=== PATIENT | female | born 1950 | race Caucasian/White ===

== ENCOUNTER 2017-02-04 22:08 | Inpatient (IN) | payer MEDICARE, OTHER ==
[2017-02-04 22:53] VITALS: BMI 28.3
--- NOTE | 2017-02-04 23:03 | HP ---
CIWA Score - CIWA Score Nausea/Vomitin-Mild Nausea/No Vomiting Muscle Tremors: 4-Moderate,w/Arms Extend Anxiety: 4-Mod. Anxious/Guarded Agitation: 4-Moderately Restless Paroxysmal Sweats: 1-Minimal Palms Moist Orientation: 1-Uncertain about Date Tacttile Disturbances: 0-None Auditory Disturbances: 0-None Visual Disturbances: 0-None Headache: 0-None Present CIWA-Ar Total Score: 15 Admission ROS BHS - HPI Chief Complaint: withdrawal sx Allergies/Adverse Reactions: Allergies Allergy/AdvReac Type Severity Reaction Status Date / Time No Known Allergies Allergy Verified 10/22/14 09:57 History of Present Illness: 66 years old female with long history of alcohol nicotine dependence has hypertension and bipolar ii is admitted to detox Exam Limitations: No Limitations - Ebola screening Have you traveled outside of the country in the last 21 days: No (N) Have you had contact with anyone from an Ebola affected area: No Have you been sick,other than usual withdrawal symptoms: No Do you have a fever: No - Review of Systems Constitutional: Chills, Changes in sleep, Weight Stable EENT: reports: No Symptoms Reported Respiratory: reports: No Symptoms reported Cardiac: reports: No Symptoms Reported GI: reports: Nausea, Poor Fluid Intake, Indigestion, Abdominal cramping : reports: No Symptoms Reported Musculoskeletal: reports: No Symptoms Reported Integumentary: reports: Bruising (both fore arms), Change in Color Neuro: reports: Seizure (1987 head trauma), Tremors Endocrine: reports: No Symptoms Reported Hematology: reports: No Symptoms Reported Psychiatric: reports: Judgement Intact, Anxious, Depressed Other Systems: Reviewed and Negative Patient History - Patient Medical History Hx Anemia: No Hx Asthma: No Hx Chronic Obstructive Pulmonary Disease (COPD): No Hx Cancer: No Hx Cardiac Disorders: No Hx Congestive Heart Failure: No Hx Hypertension: Yes Hx Hypercholesterolemia: No Hx Pacemaker: No HX Cerebrovascular Accident: No Hx Seizures: Yes Hx Diabetes: No Hx Gastrointestinal Disorders: No Hx Liver Disease: Yes (hep c ab positive ) Hx Genitourinary Disorders: No Hx Sexually Transmitted Disorders: No Hx Renal Disease (ESRD): No Hx Thyroid Disease: No Hx Human Immunodeficiency Virus (HIV): No Hx Hepatitis C: Yes Hx Depression: No Hx Suicide Attempt: No Hx Bipolar Disorder: Yes Hx Schizophrenia: No - Patient Surgical History Past Surgical History: Yes Hx Neurologic Surgery: No Hx Cataract Extraction: No Hx Cardiac Surgery: No Hx Lung Surgery: No Hx Breast Surgery: No Hx Breast Biopsy: No Hx Abdominal Surgery: No Hx Appendectomy: No Hx Cholecystectomy: No Hx Genitourinary Surgery: No Hx Section: Yes Hx Orthopedic Surgery: No Anesthesia Reaction: Yes (DIFFICULTY WAKING UP) - PPD History Previous Implant?: Yes Documented Results: Negative w/proof Implanted On Prior [facility] Admission?: Yes Date: 10/24/14 PPD to be Administered?: Yes - Smoking Cessation Smoking history: Current every day smoker Have you smoked in the past 12 months: Yes Aproximately how many cigarettes per day: 15 Cigars Per Day: 0 Hx Chewing Tobacco Use: No Initiated information on smoking cessation: Yes 'Breaking Loose' booklet given: 02/04/17 - Substance & Tx. History Hx Alcohol Use: Yes Hx Substance Use: Yes Substance Use Type: Alcohol, Heroin, Opiates Hx Substance Use Treatment: Yes (09/2014) - Substances Abused Alcohol Route: Oral Frequency: Daily Amount used: angelo schrader Age of first use: 18 Date of Last Use: 02/03/17 Family Disease History - Family Disease History Family Disease History: Heart Disease: Father (), Other: Father, Mother (no contact), Brother ( hiv), Sister () Admission Physical Exam S - Vital Signs Vital Signs: Vital Signs - 24 hr 02/04/17 22:50 Temperature 99.2 F Pulse Rate 94 H Respiratory 18 Rate Blood Pressure 111/71 - Physical General Appearance: Yes: Nourished, Appropriately Dressed, Mild Distress, Tremorous, Irritable, Sweating, Anxious HEENTM: Yes: Hearing grossly Normal, Normal ENT Inspection, Normocephalic, Normal Voice Respiratory: Yes: Chest Non-Tender, Lungs Clear, Normal Breath Sounds, No Respiratory Distress, No Accessory Muscle Use Neck: Yes: Supple, Trachea in good position Breast: Yes: Breasts Symetrical Abdominal: Yes: Non Tender, Soft, Increased Bowel Sounds Genitourinary: Yes: Within Normal Limits Back: Yes: Normal Inspection Musculoskeletal: Yes: full range of Motion, Gait Steady, Back pain, Muscle Pain Extremities: Yes: Normal Range of Motion, Non-Tender, Tremors, Other (both arms multiple bruises) Neurological: Yes: Alert, Motor Strength 5/5, Normal Response, Depressed Affect Integumentary: Yes: Warm Lymphatic: Yes: Within Normal Limits - Diagnostic (1) Alcohol dependence with uncomplicated withdrawal Current Visit: Yes Status: Acute (2) Methadone maintenance therapy patient Current Visit: Yes Status: Chronic Comment: 30 mg verification pending (3) Nicotine dependence Current Visit: Yes Status: Acute Qualifiers: Nicotine product type: cigarettes Substance use status: in withdrawal Qualified Code(s): F17.213 - Nicotine dependence, cigarettes, with withdrawal (4) Seizure Current Visit: Yes Status: Chronic (5) Hepatitis C antibody test positive Current Visit: Yes Status: Resolved Cleared for Admission [facility] - Detox or Rehab [facility] Level of Care: Medically Managed Detox Regimen/Protocol: Librium [facility] Breath Alcohol Content Breath Alcohol Content: 0 Urine Pregancy Test - Result Urine Test Results: Negative- NO Line Present Urine Drug Screen - Results Drug Screen Negative: No Urine Drug Screen Results: OPI-Opiates, MTD-Methadone, TCA-Tricyclic Antidepress
[2017-02-04] MEDS ORDERED: MAGNESIUM CITRATE 300 ML BOTTLE PO PRN (23:12)
[2017-02-04] MEDS ORDERED: NICOTINE POLACRILEX 4 MG GUM BC PRN (23:12)
[2017-02-04] MEDS ORDERED: LOPERAMIDE HCL 2 MG CAPSULE PO PRN (23:12)
[2017-02-04] MEDS ORDERED: ACETAMINOPHEN 325 MG TABLET (FP) PO PRN (23:12)
[2017-02-04] MEDS ORDERED: MAG HYDROX/AL HYDROX/SIMETH 30 ML UNIT-DOSE CUP PO PRN (23:12)
[2017-02-04] MEDS ORDERED: P-EPHED 60MG/TRIPROLIDI 2.5MG TABLET PO PRN (23:12)
[2017-02-04] MEDS ORDERED: MENTHOL/PHENOL 1 EACH UD MM PRN (23:12)
[2017-02-04] MEDS ORDERED: MAGNESIUM HYDROX 2400MG/30ML ORAL SUSPENSION 30 ML CUP PO PRN (23:12)
[2017-02-04] MEDS ORDERED: chlordiazePOXIDE HCL 25 MG CAPSULE PO PRN (23:12)
[2017-02-04] MEDS ORDERED: guaiFENesin/D-METHORPHAN HB 10 ML UNIT-DOSE CUPS PO PRN (23:12)
[2017-02-04] MEDS ORDERED: GABAPENTIN 300 MG CAPSULE (FP) PO SCH (23:30)
[2017-02-05] MEDS: SULFAMETHOXAZOLE/TRIMETHOPRIM 800MG/160MG D.S. TABLET PO SCH ×3 (00:29→22:21)
[2017-02-05] MEDS: diphenhydrAMINE HCL 50 MG CAPSULE PO PRN ×2 (00:30→23:11)
[2017-02-05] MEDS: chlordiazePOXIDE HCL 25 MG CAPSULE PO SCH ×5 (00:30→22:21)
[2017-02-05] MEDS: GABAPENTIN 300 MG CAPSULE (FP) PO SCH ×3 (05:30→22:22)
[2017-02-05 10:02] LABS: MEAN CELL VOLUME 91.1 fl (80-96); MEAN PLT VOLUME 11.6 fl (7.5-11.1); PLATELET COUNT 119 K/MM3 (134-434); RDW 14.3 % (11.6-15.6); WHITE BLOOD COUNT 6.5 K/mm3 (4.0-10.0)
[2017-02-05 10:18] LABS: ALK PHOS 80 U/L (45-117); ANION GAP 8 (8-16); BILIRUBIN,TOTAL 0.7 mg/dL (0.2-1.0); CALCIUM 8.2 mg/dL (8.5-10.1); CO2 26 mmol/L (21-32); CREATININE 0.5 mg/dL (0.55-1.02); GLUCOSE,RANDOM 91 mg/dL (74-106); SGOT/AST 50 U/L (15-37); SGPT/ALT 53 U/L (12-78); TOT PROT 6.5 g/dl (6.4-8.2)
[2017-02-05] MEDS: RANITIDINE HCL 150 MG TABLET (FP) PO SCH ×2 (10:46→22:21)
[2017-02-05] MEDS: LISINOPRIL 5 MG TABLET (FP) PO SCH (10:46)
[2017-02-05] MEDS: PRENATAL VITAMINS W/ FOLIC ACID TABLET (FP) PO SCH (10:46)
[2017-02-05] MEDS: NICOTINE 21 MG/24 HOURS TOPICAL PATCH TD SCH (10:47)
--- NOTE | 2017-02-05 13:25 | PN ---
S CIWA - CIWA Score Nausea/Vomitin Muscle Tremors: 2 Anxiety: 2 Agitation: 2 Paroxysmal Sweats: 1-Minimal Palms Moist Orientation: 0-Oriented Tacttile Disturbances: 1-Very Mild Itch/Numbness Auditory Disturbances: 1-Very Mild Visual Disturbances: 1-Very Mild Sensitivity Headache: 2-Mild CIWA-Ar Total Score: 15 S Progress Note (SOAP) Subjective: ALERT,DROWSY AND SLEEPY Objective: 02/05/17 13:22 Vital Signs Temperature 98.1 F 02/05/17 13:13 Pulse Rate 100 H 02/05/17 13:13 Respiratory Rate 20 02/05/17 13:13 Blood Pressure 148/87 02/05/17 13:13 O2 Sat by Pulse Oximetry (%) EKG NSR 80/MIN Laboratory Last Values WBC 6.5 K/mm3 (4.0-10.0) 02/05/17 08:00 RBC 3.67 M/mm3 (3.60-5.2) 02/05/17 08:00 Hgb 11.0 GM/dL (10.7-15.3) D 02/05/17 08:00 Hct 33.4 % (32.4-45.2) 02/05/17 08:00 MCV 91.1 fl (80-96) 02/05/17 08:00 MCHC 33.0 g/dl (32.0-36.0) 02/05/17 08:00 RDW 14.3 % (11.6-15.6) 02/05/17 08:00 Plt Count 119 K/MM3 (134-434) L D 02/05/17 08:00 MPV 11.6 fl (7.5-11.1) H D 02/05/17 08:00 Sodium 140 mmol/L (136-145) 02/05/17 08:00 Potassium 3.8 mmol/L (3.5-5.1) 02/05/17 08:00 Chloride 106 mmol/L (98-107) 02/05/17 08:00 Carbon Dioxide 26 mmol/L (21-32) 02/05/17 08:00 Anion Gap 8 (8-16) 02/05/17 08:00 BUN 15 mg/dL (7-18) D 02/05/17 08:00 Creatinine 0.5 mg/dL (0.55-1.02) L 02/05/17 08:00 Creat Clearance w eGFR > 60 (>60) 02/05/17 08:00 Random Glucose 91 mg/dL (74-106) 02/05/17 08:00 Calcium 8.2 mg/dL (8.5-10.1) L 02/05/17 08:00 Total Bilirubin 0.7 mg/dL (0.2-1.0) D 02/05/17 08:00 AST 50 U/L (15-37) H D 02/05/17 08:00 ALT 53 U/L (12-78) D 02/05/17 08:00 Alkaline Phosphatase 80 U/L (45-117) D 02/05/17 08:00 Total Protein 6.5 g/dl (6.4-8.2) 02/05/17 08:00 Albumin 3.0 g/dl (3.4-5.0) L D 02/05/17 08:00 LABS PENDING Assessment: 02/05/17 13:24 WITHDRAWAL SYMPTOM Plan: CONTINUE DETOX,WILL HOLD METHADONE TODAY
--- NOTE | 2017-02-05 15:45 | EKG ---
Test Reason : Blood Pressure : / mmHG Vent. Rate : 080 BPM Atrial Rate : 080 BPM P-R Int : 172 ms QRS Dur : 094 ms QT Int : 410 ms P-R-T Axes : 025 055 051 degrees QTc Int : 472 ms NORMAL SINUS RHYTHM POOR R WAVE PROGRESSION ABNORMAL ECG WHEN COMPARED WITH ECG OF 22-OCT-2014 21:58, [place] INTERVAL HAS DECREASED QUESTIONABLE CHANGE IN INITIAL FORCES OF SEPTAL LEADS CLINICAL CORRELATION IS RECOMMENDED Confirmed by JERARDO HODGES MD ([id number]) on 02/05/2017 3:45:00 PM Referred By: Confirmed By:JERARDO HODGES MD
--- NOTE | 2017-02-05 19:05 | CONSULT ---
[facility] Psychiatric Consult - Data Date of interview: 02/05/17 Admission source: [facility] Identifying data: Readmission to [facility] for this 66 y/o female seeking detox treatment for opioid dependence.Patient is single,a mother of one, homeless (intermediate),unemployed and supported on Social Security benefits. Substance Abuse History: - Smoking Cessation. Smoking history: Current every day smoker. Have you smoked in the past 12 months: Yes. Aproximately how many cigarettes per day: 15. Cigars Per Day: 0. Hx Chewing Tobacco Use: No. Initiated information on smoking cessation: Yes. 'Breaking Loose' booklet given : 02/04/17. - Substance & Tx. History. Hx Alcohol Use: Yes. Hx Substance Use : Yes. Substance Use Type: Alcohol, Heroin, Opiates. Hx Substance Use Treatment: Yes (09/2014). - Substances Abused. Alcohol. Route: Oral. Frequency: Daily. Amount used: quart volka. Age of first use: 18. Date of Last Use: 02/03/17. Confirmed by patient. Medical History: Hypertension and hepatitis C. Psychiatric History: Prescribed zoloft 100 mg/day + seroquel 300 mg/hs.Patient reports that she took these medications two days ago.Ms Ricks denies being in psychiatric outpatient treatment.She indicates that they were prescribed to her during her stay on the detox unit at [facility] a week ago.Diagnosed with Bipolar Disorder.Patient admits to a history of multiple psychiatric hospitalizations ([facility]).She presents with a history of suicide attempts (cutting). Physical/Sexual Abuse/Trauma History: No reported history of abuse. Additional Comment: Urine Drug Screen Results: OPI-Opiates, MTD-Methadone, TCA- Tricyclic Antidepressant.Noted. Mental Status Exam - Mental Status Exam Alert and Oriented to: Time, Place, Person Cognitive Function: Grossly Intact Patient Appearance: Unkempt, Disheveled Mood: Nervous, Withdrawn, Anxious Affect: Mood Congruent Patient Behavior: Fatigued, Cooperative (medication-seeking) Speech Pattern: Clear Voice Loudness: Normal Thought Process: Goal Oriented Thought Disorder: Not Present Hallucinations: Denies Suicidal Ideation: Denies Homicidal Ideation: Denies Insight/Judgement: Poor Sleep: Poorly, Difficulty falling asleep Appetite: Good Muscle strength/Tone: Normal Gait/Station: Normal Psychiatric Findings - Problem List ([place] 1, 2,3) (1) Alcohol dependence with uncomplicated withdrawal Current Visit: Yes Status: Acute (2) Opioid dependence on agonist therapy Current Visit: Yes Status: Acute (3) Nicotine dependence Current Visit: Yes Status: Acute Qualifiers: Nicotine product type: cigarettes Substance use status: in withdrawal Qualified Code(s): F17.213 - Nicotine dependence, cigarettes, with withdrawal (4) Substance induced mood disorder Current Visit: Yes Status: Acute (5) Seizure Current Visit: Yes Status: Chronic (6) Hepatitis C antibody test positive Current Visit: Yes Status: Resolved (7) Insomnia Current Visit: Yes Status: Acute - Initial Treatment Plan Initial Treatment Plan: Psychoeducation.Detoxification.Medications : zoloft 50 mg po daily + seroquel 100 mg po hs (subject to titration if no oversedation) .Side effects/benefits are discussed with patient.She is in agreement with this careplan.Pharmacy claims reviewed : noted scripts issued on 02/02/17 for seroquel XR 300 mg/hs + zoloft 200 mg/day remeron 15 mg/hs at [facility] and remeron 15 mg/hs @ [place] [address] on 12/02/16.Discrepancy presented to the patient.Ms Ricks insists on taking ONLY seroquel and zoloft for this hospital course.Observation.NO scripts needed at discharge.
[2017-02-05] MEDS: QUEtiapine FUMARATE 100 MG TABLET (FP) PO SCH (22:21)
[2017-02-05] MEDS: THIAMINE HCL 100 MG TABLET (FP) PO SCH (22:21)
[2017-02-06] MEDS: chlordiazePOXIDE HCL 25 MG CAPSULE PO SCH ×3 (06:29→16:57)
[2017-02-06] MEDS: GABAPENTIN 300 MG CAPSULE (FP) PO SCH ×3 (06:29→22:03)
[2017-02-06] MEDS: RANITIDINE HCL 150 MG TABLET (FP) PO SCH ×2 (09:51→22:03)
[2017-02-06] MEDS: LISINOPRIL 5 MG TABLET (FP) PO SCH (09:51)
[2017-02-06] MEDS: SULFAMETHOXAZOLE/TRIMETHOPRIM 800MG/160MG D.S. TABLET PO SCH ×2 (09:51→22:03)
[2017-02-06] MEDS: PRENATAL VITAMINS W/ FOLIC ACID TABLET (FP) PO SCH (09:51)
[2017-02-06] MEDS: SERTRALINE HCL 50 MG TABLET (FP) PO SCH (09:52)
[2017-02-06] MEDS: NICOTINE 21 MG/24 HOURS TOPICAL PATCH TD SCH (09:52)
[2017-02-06] MEDS ORDERED: SERTRALINE HCL 50 MG TABLET (FP) PO SCH (10:00)
[2017-02-06] MEDS ORDERED: METHADONE HCL 10 MG TABLET PO ONE (10:25)
--- NOTE | 2017-02-06 10:37 | PN ---
S CIWA - CIWA Score Nausea/Vomitin Muscle Tremors: 3 Anxiety: 3 Agitation: 3 Paroxysmal Sweats: 1-Minimal Palms Moist Orientation: 0-Oriented Tacttile Disturbances: 1-Very Mild Itch/Numbness Auditory Disturbances: 1-Very Mild Visual Disturbances: 1-Very Mild Sensitivity Headache: 2-Mild CIWA-Ar Total Score: 18 S Progress Note (SOAP) Subjective: ALERT,IRRITABLE,ANXIOUS,INTERRUPTED SLEEP,TREMOR,INTERRUPTED SLEEP Objective: 02/06/17 10:35 Vital Signs Temperature 97.2 F L 02/06/17 06:00 Pulse Rate 79 02/06/17 06:00 Respiratory Rate 18 02/06/17 06:30 Blood Pressure 153/95 02/06/17 06:00 O2 Sat by Pulse Oximetry (%) Laboratory Last Values WBC 6.5 K/mm3 (4.0-10.0) 02/05/17 08:00 RBC 3.67 M/mm3 (3.60-5.2) 02/05/17 08:00 Hgb 11.0 GM/dL (10.7-15.3) D 02/05/17 08:00 Hct 33.4 % (32.4-45.2) 02/05/17 08:00 MCV 91.1 fl (80-96) 02/05/17 08:00 MCHC 33.0 g/dl (32.0-36.0) 02/05/17 08:00 RDW 14.3 % (11.6-15.6) 02/05/17 08:00 Plt Count 119 K/MM3 (134-434) L D 02/05/17 08:00 MPV 11.6 fl (7.5-11.1) H D 02/05/17 08:00 Sodium 140 mmol/L (136-145) 02/05/17 08:00 Potassium 3.8 mmol/L (3.5-5.1) 02/05/17 08:00 Chloride 106 mmol/L (98-107) 02/05/17 08:00 Carbon Dioxide 26 mmol/L (21-32) 02/05/17 08:00 Anion Gap 8 (8-16) 02/05/17 08:00 BUN 15 mg/dL (7-18) D 02/05/17 08:00 Creatinine 0.5 mg/dL (0.55-1.02) L 02/05/17 08:00 Creat Clearance w eGFR > 60 (>60) 02/05/17 08:00 Random Glucose 91 mg/dL (74-106) 02/05/17 08:00 Calcium 8.2 mg/dL (8.5-10.1) L 02/05/17 08:00 Total Bilirubin 0.7 mg/dL (0.2-1.0) D 02/05/17 08:00 AST 50 U/L (15-37) H D 02/05/17 08:00 ALT 53 U/L (12-78) D 02/05/17 08:00 Alkaline Phosphatase 80 U/L (45-117) D 02/05/17 08:00 Total Protein 6.5 g/dl (6.4-8.2) 02/05/17 08:00 Albumin 3.0 g/dl (3.4-5.0) L D 02/05/17 08:00 RPR Titer Nonreactive (NONREACTIVE) 02/05/17 08:00 Assessment: 02/06/17 10:36 WITHDRAWAL SYMPTOM Plan: CONTINUE DETOX
[2017-02-06] MEDS ORDERED: CYCLOBENZAPRINE HCL 10 MG TABLET (FP) PO PRN (13:57)
[2017-02-06] MEDS ORDERED: cloNIDine HCL 0.1 MG TABLET PO PRN (20:58)
[2017-02-06] MEDS: THIAMINE HCL 100 MG TABLET (FP) PO SCH (22:02)
[2017-02-06] MEDS: chlordiazePOXIDE 5 MG CAPSULE PO SCH (22:02)
[2017-02-06] MEDS: QUEtiapine FUMARATE 100 MG TABLET (FP) PO SCH (22:03)
--- NOTE | 2017-02-07 01:17 | PN ---
S Progress Note (SOAP) Subjective: Received report from FILEMON Martinez that the pt. is c/o of chest pain. Objective: 02/07/17 01:16 Last Vital Signs Temp Pulse Resp BP Pulse Ox 97.9 F 86 20 146/93 97 EKG: NSR Assessment: 02/07/17 01:17 Pt. seen lying comfortably. She c/o of burning sensation to her epigastric region that worsens when she lays down in bed and coughing. Plan: Pt. educated to avoid fatty and spicy meals; avoid eating and drinking 3 hours prior to going to bed; elevate the HOB. Pt. verbalize understanding. Zantac 300mg PO HS ordered.
[2017-02-07] MEDS: chlordiazePOXIDE 5 MG CAPSULE PO SCH ×2 (05:37→10:33)
[2017-02-07] MEDS: GABAPENTIN 300 MG CAPSULE (FP) PO SCH ×2 (05:38→14:34)
[2017-02-07] MEDS ORDERED: METHADONE HCL 10 MG TABLET PO SCH (06:00)
--- NOTE | 2017-02-07 08:30 | PN ---
S Progress Note Note: PATIENT METHADONE VERIFICATION 40 MG/DAY,WILL RESUME 40 MGS/DAY FROM 02/07/17
[2017-02-07] MEDS: SERTRALINE HCL 50 MG TABLET (FP) PO SCH (10:32)
[2017-02-07] MEDS: PRENATAL VITAMINS W/ FOLIC ACID TABLET (FP) PO SCH (10:33)
[2017-02-07] MEDS: NICOTINE 21 MG/24 HOURS TOPICAL PATCH TD SCH (10:33)
[2017-02-07] MEDS: SULFAMETHOXAZOLE/TRIMETHOPRIM 800MG/160MG D.S. TABLET PO SCH (10:33)
[2017-02-07] MEDS: LISINOPRIL 5 MG TABLET (FP) PO SCH (10:33)
--- NOTE | 2017-02-07 10:55 | PN ---
[facility] Progress Note Note: pt was irrate and became threatening with another pt on the unit. Pt was advised that this behavior is unacceptable. security and counselor spoke to pt and pt agreed that this is her final warning. another outburst, threatening towards another pt or staff she will be d/c. pt was reminded that her reason for being here.
--- NOTE | 2017-02-07 14:12 | EKG ---
Test Reason : Blood Pressure : / mmHG Vent. Rate : 085 BPM Atrial Rate : 085 BPM P-R Int : 176 ms QRS Dur : 088 ms QT Int : 380 ms P-R-T Axes : 054 036 049 degrees QTc Int : 452 ms NORMAL SINUS RHYTHM NORMAL ECG WHEN COMPARED WITH ECG OF 04-FEB-2017 23:40, NO SIGNIFICANT CHANGE WAS FOUND Confirmed by OLIVER ARAMBULA MD ([id number]) on 02/07/2017 2:11:43 PM Referred By: Confirmed By:OLIVER ARAMBULA MD
[2017-02-07 14:13] VITALS: BP 137/91; PULSE 78; TEMP 98.1
[2017-02-07] MEDS ORDERED: HALOPERIDOL 2 MG TABLET PO STA (15:20)
[2017-02-07] MEDS ORDERED: diphenhydrAMINE HCL 25 MG CAPSULE (FP) PO STA (15:20)
--- NOTE | 2017-02-07 15:20 | PN ---
Psychiatric Progress Note Vital Signs: Vital Signs Period Temp Pulse Resp BP Sys/Turner Pulse Ox Last 24 Hr 97.3 F-98.2 F 78-93 16-20 124-165/72-91 Date of Session: 02/07/17 Chief Complaint:: As per nursing report patient expressing suicidal ideation, HPI: Patient evaluated at bedside , patient is crying, reports she does not want to go home, reports " my life is miserable.and I am ready to kill myself", patient is not violent or agressive, patient carries MDD, and at this moment severely exacerbated in her condition. Patient has to be send to [facility] for safety and following hospitalization. [id number] po stat. Benadryl 25mg po stat Current Medications: Active Medications Generic Name Dose Route Start Last Admin Trade Name Freq PRN Reason Stop Dose Admin Acetaminophen 650 mg 02/04/17 23:12 02/06/17 13:59 Tylenol - PO 650 mg Q4H PRN Administration FEVER OR PAIN Al Hydroxide/Mg Hydroxide 30 ml 02/04/17 23:12 02/07/17 05:37 Mylanta Oral Suspension - PO 30 ml Q6H PRN Administration DYSPEPSIA Chlordiazepoxide HCl 10 mg 02/07/17 23:00 Librium - PO 02/08/17 17:01 [id number] ROULA Chlordiazepoxide HCl 25 mg 02/04/17 23:12 02/05/17 19:20 Librium - PO 02/07/17 23:11 25 mg Q4H PRN Administration WITHDRAWAL(CONT SUBST) Chlordiazepoxide HCl 15 mg 02/06/17 23:00 02/07/17 10:33 Librium - PO 02/07/17 17:01 Not Given [id number] ROULA Clonidine 0.1 mg 02/06/17 20:58 02/06/17 22:02 Catapres - PO 0.1 mg BID PRN Administration HYPERTENSION Diphenhydramine HCl 50 mg 02/04/17 23:12 02/05/17 23:11 Benadryl - PO 50 mg HSMR1 PRN Administration INSOMNIA Eucalyptus/Menthol/Phenol/Sorbitol 1 each 02/04/17 23:12 Cepastat Lozenge - MM Q4H PRN SORE THROAT Gabapentin 300 mg 02/04/17 23:30 02/07/17 14:34 Neurontin - PO 300 mg TID ROULA Administration Guaifenesin 10 ml 02/04/17 23:12 Robitussin Dm - PO Q6H PRN COUGH Lisinopril 5 mg 02/05/17 10:00 02/07/17 10:33 Prinivil PO 5 mg DAILY ROULA Administration Loperamide HCl 4 mg 02/04/17 23:12 Imodium - PO Q6H PRN DIARRHEA Magnesium Citrate 300 ml 02/04/17 23:12 Citroma - PO Q48H PRN CONSTIPATION Magnesium Hydroxide 30 ml 02/04/17 23:12 Milk Of Magnesia - PO DAILY PRN CONSTIPATION Methadone HCl 40 mg 02/08/17 06:00 Dolophine - PO 02/14/17 05:59 DAILY@0600 ROULA Nicotine 21 mg 02/05/17 10:00 02/07/17 10:33 Nicoderm Patch - TD Not Given DAILY ROULA Nicotine Polacrilex 4 mg 02/04/17 23:12 Nicorette Gum - BC Q2H PRN NICOTINE REPLACEMENT RX Multivit/Folic Acid/Iron 1 tab 02/05/17 10:00 02/07/17 10:33 Vitamins (Sjr) - PO 1 tab DAILY ROULA Administration Pseudoephedrine/Triprolidine 1 combo 02/04/17 23:12 Actifed - PO TID PRN NASAL CONGESTION Quetiapine Fumarate 100 mg 02/05/17 22:00 02/06/17 22:03 Seroquel - PO 100 mg HS ROULA Administration Ranitidine HCl 300 mg 02/07/17 22:00 Zantac - PO HS ROULA Sertraline HCl 100 mg 02/06/17 10:00 02/07/17 10:32 Zoloft - PO 100 mg DAILY ROULA Administration Thiamine HCl 100 mg 02/05/17 22:00 02/06/17 22:02 Vitamin B1 - PO 100 mg HS ROULA Administration Trimethoprim/Sulfamethoxazole 1 each 02/04/17 23:30 02/07/17 10:33 Bactrim Ds - PO 02/11/17 23:29 1 each BID ROULA Administration Medication(s) Change(s): [id number] po stat. Benadryl 25mg po stat Provider note:: Send to [facility] for safety and stabilization due to suicidal ideation Mental Status Exam - Mental Status Exam Alert and Oriented to: Person Cognitive Function: Fair Patient Appearance: Unkempt Mood: Depressed, Nervous Affect: Mood Congruent Patient Behavior: Crying, Fatigued, Cooperative Speech Pattern: Delayed Voice Loudness: Mildly Soft/Quiet Thought Process: Goal Oriented Thought Disorder: Being Controlled Hallucinations: Denies Suicidal Ideation: Current, No Plan Homicidal Ideation: Denies Insight/Judgement: Fair Sleep: Difficulty falling asleep Appetite: Weight gain Muscle strength/Tone: Mild Hypotonicity Gait/Station: Shuffling Additional Comments: [id number] po stat. Benadryl 25mg po stat Psychiatric Treatment Plan - Problem List (1) Alcohol dependence with uncomplicated withdrawal Current Visit: Yes (2) Nicotine dependence Current Visit: Yes Qualifiers: Nicotine product type: cigarettes Substance use status: in withdrawal Qualified Code(s): F17.213 - Nicotine dependence, cigarettes, with withdrawal (3) Opioid dependence on agonist therapy Current Visit: Yes (4) Substance induced mood disorder Current Visit: Yes (5) Methadone maintenance therapy patient Current Visit: Yes Comment: 30 mg verification pending (6) Alcohol dependence Current Visit: No (7) Benzodiazepine dependence Current Visit: No (8) MDD (major depressive disorder) Current Visit: Yes Initial treatment plan: [id number] po stat. Benadryl 25mg po stat
[2017-02-07] MEDS ORDERED: RANITIDINE HCL 150 MG TABLET (FP) PO SCH (22:00)
[2017-02-07] MEDS ORDERED: chlordiazePOXIDE HCL 10 MG CAPSULE PO SCH (23:00)
[2017-02-08] MEDS ORDERED: METHADONE HCL 40 MG DISPERSABLE TABLET PO SCH (06:00)
== END 2017-02-07 15:38 | disposition short-term general hospital (02) | DRG 897 ==
LOC: YASAS 22:08 → Y6N 23:16
PROVIDERS: ADMIT Internal Medicine; ATTEND Internal Medicine
PROC: HZ2ZZZZ Detoxification Services for Substance Abuse Treatment (ICD-10-PCS; principal; 2017-02-04)
DX: F19.230 Other psychoactive substance dependence with withdrawal, uncomplicated (principal); F11.20 Opioid dependence, uncomplicated; F33.9 Major depressive disorder, recurrent, unspecified; R45.851 Suicidal ideations; F10.230 Alcohol dependence with withdrawal, uncomplicated; F13.230 Sedative, hypnotic or anxiolytic dependence with withdrawal, uncomplicated; F17.213 Nicotine dependence, cigarettes, with withdrawal; F19.24 Other psychoactive substance dependence with psychoactive substance-induced mood disorder; I10 Essential (primary) hypertension; B18.2 Chronic viral hepatitis C; R07.9 Chest pain, unspecified; Z86.69 Personal history of other diseases of the nervous system and sense organs
CPT/HCPCS: 36415; 80053; 85027; 86593; 93005; 93010

== ENCOUNTER 2017-04-25 09:36 | Inpatient (IN) | payer MEDICARE, OTHER ==
[2017-04-25 10:48] VITALS: BMI 27.7
--- NOTE | 2017-04-25 14:23 | HP ---
CIWA Score - CIWA Score Nausea/Vomitin Muscle Tremors: 4-Moderate,w/Arms Extend Anxiety: 2 Agitation: 1-Slight > Activity Paroxysmal Sweats: 3 Orientation: 4Disoriented Place/Person Tacttile Disturbances: 0-None Auditory Disturbances: 0-None Visual Disturbances: 0-None Headache: 4-Moderately Severe CIWA-Ar Total Score: 23 Admission ROS S - HPI Chief Complaint: "I'm sick, I do not feel good." Patient is here to Detox from Alcohol. Allergies/Adverse Reactions: Allergies Allergy/AdvReac Type Severity Reaction Status Date / Time No Known Allergies Allergy Verified 02/04/17 23:51 History of Present Illness: Pt. is here to Detox from Alcohol. Patient has had 1 previous Detox admission at [facility] in the past, many years ago. Longest period of sobriety: approx. 2 years (1989 - 1991). NOTE: Patient reports history of Suboxone use (Prescribed) , 8-2 mg BID. However, according to Pharmacist at patient's pharmacy, ([facility], [address] [place] [address], ) patient last filled Suboxone prescription (for 1 MONTH SUPPLY) approx. 2 months ago. Patient reports sporadic use of suboxone recently due to life circumstances. Suboxone not able to be ordered while patient admitted for Detox. Patient verbalizes understanding and still requests to be admitted for Detox for Alcohol anyway. Exam Limitations: No Limitations - Ebola screening Have you traveled outside of the country in the last 21 days: No Have you had contact with anyone from an Ebola affected area: No Have you been sick,other than usual withdrawal symptoms: No Do you have a fever: No - Review of Systems Constitutional: Chills, Diaphoresis, Fever, Loss of Appetite, Malaise, Night Sweats, Changes in sleep, Unexplained wgt Loss (Lost approx. 8 lbs. over the last 2 weeks.) EENT: reports: Other (Patient has upper and lower dentures; however, she did not bring them with her for this admission.) Respiratory: reports: SOB with Exertion Cardiac: reports: Syncope (Last episode - Yesterday (04/24/2017), patient taken to [facility] ER for evaluation.) GI: reports: Diarrhea, Nausea, Poor Appetite, Vomiting, Abdominal cramping : reports: No Symptoms Reported Musculoskeletal: reports: No Symptoms Reported Integumentary: reports: No Symptoms Reported Neuro: reports: Headache, Seizure (Due to Head Injury approx. 5 years ago. Takes Gabapentin.), Tremors Endocrine: reports: No Symptoms Reported Hematology: reports: No Symptoms Reported Psychiatric: reports: Judgement Intact, Mood/Affect Appropiate, Anxious, Depressed (On meds.), Disorientated Other Systems: Reviewed and Negative Patient History - Patient Medical History Hx Anemia: No Hx Asthma: No Hx Chronic Obstructive Pulmonary Disease (COPD): No Hx Cancer: No Hx Cardiac Disorders: No Hx Congestive Heart Failure: No Hx Hypertension: Yes Hx Hypercholesterolemia: No Hx Pacemaker: No HX Cerebrovascular Accident: No Hx Seizures: Yes (r/t head trauma. Last episode 3 months ago.) Hx Dementia: No Hx Diabetes: No Hx Gastrointestinal Disorders: No Hx Liver Disease: Yes (hep c ab positive; Started treatment, but did not complete. ) Hx Genitourinary Disorders: No Hx Sexually Transmitted Disorders: No Hx Renal Disease (ESRD): No Hx Thyroid Disease: No Hx Human Immunodeficiency Virus (HIV): No Hx Hepatitis C: Yes (Started Treatment, but did not complete.) Hx Depression: Yes (On meds.) Hx Suicide Attempt: No (PATIENT DENEIS CURRENT SI / HI.) Hx Bipolar Disorder: No Hx Schizophrenia: No Other Medical History: DENIES. - Patient Surgical History Past Surgical History: Yes Hx Neurologic Surgery: No Hx Cataract Extraction: No Hx Cardiac Surgery: No Hx Lung Surgery: No Hx Breast Surgery: No Hx Breast Biopsy: No Hx Abdominal Surgery: No Hx Appendectomy: No Hx Cholecystectomy: No Hx Genitourinary Surgery: No Hx Section: Yes (x1 1975) Hx Orthopedic Surgery: No Anesthesia Reaction: Yes (DIFFICULTY WAKING UP) - PPD History Previous Implant?: Yes Documented Results: Negative w/proof Implanted On Prior R Admission?: Yes Date: 02/07/17 Results: 0mm PPD to be Administered?: No - Reproductive History Patient is a Female of Child Bearing Age (11 -55 yrs old): No LMP comment: Stopped at approx. age 39. Patient : No - Smoking Cessation Smoking history: Current every day smoker Have you smoked in the past 12 months: Yes Aproximately how many cigarettes per day: 7 Cigars Per Day: 0 Hx Chewing Tobacco Use: No Initiated information on smoking cessation: Yes 'Breaking Loose' booklet given: 04/25/17 (GIVEN ON UNIT.) - Substance & Tx. History Hx Alcohol Use: Yes Hx Substance Use: Yes Substance Use Type: Alcohol Hx Substance Use Treatment: Yes (1 Previous Detox admission.) - Substances Abused alcohol-voda, rum Route: Oral Frequency: Daily Amount used: 2 pints vodka, rum Age of first use: 13 Date of Last Use: 04/25/17 Family Disease History - Family Disease History Family Disease History: Heart Disease: Father (), Other: Father, Mother (no contact), Brother ( hiv), Sister () Admission Physical Exam BHS - Vital Signs Vital Signs: Vital Signs - 24 hr 04/25/17 10:47 Temperature 97.5 F L Pulse Rate 105 H Respiratory 18 Rate Blood Pressure 159/97 - Physical General Appearance: Yes: Nourished, Appropriately Dressed, Mild Distress, Tremorous, Anxious HEENTM: Yes: Hearing grossly Normal, Normocephalic, Normal Voice, DON, Pharynx Normal Respiratory: Yes: Chest Non-Tender, Lungs Clear, No Respiratory Distress, No Accessory Muscle Use Neck: Yes: No masses,lesions,Nodules, Supple, Trachea in good position Breast: Yes: Breast Exam Deferred Cardiology: Yes: Regular Rhythm, Regular Rate, S1, S2 Abdominal: Yes: Normal Bowel Sounds, Non Tender, Soft, Protuberent Genitourinary: Yes: Within Normal Limits Back: Yes: Normal Inspection Musculoskeletal: Yes: full range of Motion, Gait Steady Extremities: Yes: Normal Range of Motion, Non-Tender, Tremors Neurological: Yes: Alert, Normal Mood/Affect, Normal Response, Disoriented (To Current Location.) Integumentary: Yes: Normal Color, Dry, Warm Lymphatic: Yes: Within Normal Limits - Diagnostic (1) Alcohol dependence with uncomplicated withdrawal Current Visit: Yes Status: Acute (2) Nicotine dependence Current Visit: Yes Status: Chronic Qualifiers: Nicotine product type: cigarettes Substance use status: in withdrawal Qualified Code(s): F17.213 - Nicotine dependence, cigarettes, with withdrawal (3) History of depression Current Visit: Yes Status: Chronic (4) History of seizures Current Visit: Yes Status: Chronic Comment: Due to Traumatic Head Injury. (5) Hypertension Current Visit: Yes Status: Chronic Qualifiers: Hypertension type: essential hypertension Qualified Code(s): I10 - Essential (primary) hypertension (6) Opioid dependence, uncomplicated Current Visit: Yes Status: Chronic Comment: History of Suboxone use (Prescribed). Cleared for Admission [facility] - Detox or Rehab [facility] Level of Care: Medically Managed Detox Regimen/Protocol: Librium [facility] Breath Alcohol Content Breath Alcohol Content: 0 Urine Pregancy Test - Result Urine Test Results: Negative- NO Line Present Urine Drug Screen - Results Drug Screen Negative: No Urine Drug Screen Results: BAR-Barbiturates
[2017-04-25] MEDS ORDERED: MENTHOL/PHENOL 1 EACH UD MM PRN (15:21)
[2017-04-25] MEDS ORDERED: MAG HYDROX/AL HYDROX/SIMETH 30 ML UNIT-DOSE CUP PO PRN (15:21)
[2017-04-25] MEDS ORDERED: ACETAMINOPHEN 325 MG TABLET (FP) PO PRN (15:21)
[2017-04-25] MEDS ORDERED: NICOTINE POLACRILEX 2 MG GUM BC PRN (15:21)
[2017-04-25] MEDS ORDERED: MAGNESIUM HYDROX 2400MG/30ML ORAL SUSPENSION 30 ML CUP PO PRN (15:21)
[2017-04-25] MEDS ORDERED: LOPERAMIDE HCL 2 MG CAPSULE PO PRN (15:21)
[2017-04-25] MEDS ORDERED: MAGNESIUM CITRATE 300 ML BOTTLE PO PRN (15:21)
[2017-04-25] MEDS ORDERED: guaiFENesin/D-METHORPHAN HB 10 ML UNIT-DOSE CUPS PO PRN (15:21)
[2017-04-25] MEDS ORDERED: P-EPHED 60MG/TRIPROLIDI 2.5MG TABLET PO PRN (15:21)
[2017-04-25] MEDS ORDERED: chlordiazePOXIDE HCL 25 MG CAPSULE PO ONE (16:00)
--- NOTE | 2017-04-25 16:28 | PN ---
[facility] Progress Note Note: Patient reports history of taking Gabapentin, 300 for prevention of seizures due to head trauma approx. 5 years ago. However, patient reports that she has not taken Gabapentin for the last several months and is unable to recall whether she took 300 mg PO TID or QID back at the time in which she was taking it. For this Detox admission, patient to be started on Gabapentin, 100 mg PO TID and will have daily dose possibly titrated upward based on her tolerance over the next few days. Ti Gregory NP
[2017-04-25 16:46] LABS: BASOPHIL 0.5 % (0-2.0); EOSINOPHIL 0.7 % (0-4.5); MCH 28.6 pg (25.7-33.7); MCHC 34.1 g/dl (32.0-36.0); MEAN CELL VOLUME 83.8 fl (80-96); MEAN PLT VOLUME 8.8 fl (7.5-11.1); PLATELET COUNT 328 K/MM3 (134-434); RDW 14.8 % (11.6-15.6); WHITE BLOOD COUNT 9.5 K/mm3 (4.0-10.0)
[2017-04-25 17:03] LABS: ALBUMIN 3.7 g/dl (3.4-5.0); ANION GAP 14 (8-16); CALCIUM 8.8 mg/dL (8.5-10.1); CO2 23 mmol/L (21-32); GLUCOSE,RANDOM 111 mg/dL (74-106)
[2017-04-25 17:05] LABS: ALK PHOS 150 U/L (45-117); BILIRUBIN,TOTAL 0.6 mg/dL (0.2-1.0); CREATININE 0.6 mg/dL (0.55-1.02); SGOT/AST 19 U/L (15-37); SGPT/ALT 25 U/L (12-78); TOT PROT 8.4 g/dl (6.4-8.2)
[2017-04-25] MEDS: chlordiazePOXIDE HCL 25 MG CAPSULE PO SCH ×2 (17:24→22:38)
[2017-04-25] MEDS: amLODIPine BESYLATE 10 MG TABLET (FP) PO SCH (17:25)
[2017-04-25 21:06] LABS: URINE APPEARANCE CLEAR; URINE BILIRUBIN NEGATIVE (NEGATIVE); URINE BLOOD NEGATIVE (NEGATIVE); URINE COLOR LTYELLOW; URINE GLUCOSE (UA) NEGATIVE (NEGATIVE); URINE KETONE NEGATIVE (NEGATIVE); URINE NITRITE NEGATIVE (NEGATIVE); URINE PROTEIN NEGATIVE (NEGATIVE); URINE UROBILINOGEN NEGATIVE mg/dL (0.2-1.0)
[2017-04-25 21:15] LABS: URINE LEUK ESTERASE 1+ (NEGATIVE)
[2017-04-25 21:22] LABS: URINE BACTERIA MANY /hpf (NONE SEEN); URINE RBC 1 /hpf (0-3); URINE WBC 2 /hpf (3-5); YEAST RARE
[2017-04-25] MEDS: GABAPENTIN 100 MG CAPSULE (FP) PO SCH (22:38)
[2017-04-25] MEDS: THIAMINE HCL 100 MG TABLET (FP) PO SCH (22:38)
[2017-04-26] MEDS: chlordiazePOXIDE HCL 25 MG CAPSULE PO SCH ×4 (06:05→22:28)
[2017-04-26] MEDS: GABAPENTIN 100 MG CAPSULE (FP) PO SCH ×3 (06:06→22:28)
[2017-04-26] MEDS: hydrOXYzine PAMOATE 50 MG CAPSULE (FP) PO PRN ×2 (08:25→15:24)
[2017-04-26] MEDS: amLODIPine BESYLATE 10 MG TABLET (FP) PO SCH (10:53)
[2017-04-26] MEDS: PRENATAL VITAMINS W/ FOLIC ACID TABLET (FP) PO SCH (10:54)
[2017-04-26] MEDS: LISINOPRIL 5 MG TABLET (FP) PO SCH (11:45)
--- NOTE | 2017-04-26 11:58 | PN ---
[facility] CIWA - CIWA Score Nausea/Vomitin-No Nausea/No Vomiting Muscle Tremors: 4-Moderate,w/Arms Extend Anxiety: 3 Agitation: 4-Moderately Restless Paroxysmal Sweats: 3 Orientation: 0-Oriented Tacttile Disturbances: 0-None Auditory Disturbances: 0-None Visual Disturbances: 0-None Headache: 1-Very Mild CIWA-Ar Total Score: 15 BHS Progress Note (SOAP) Subjective: agitation anxiety sweats irritable interrupted sleep Objective: 04/26/17 11:57 Vital Signs Temperature 98.6 F 04/26/17 10:34 Pulse Rate 107 H 04/26/17 10:34 Respiratory Rate 20 04/26/17 10:34 Blood Pressure 156/94 04/26/17 10:34 O2 Sat by Pulse Oximetry (%) Laboratory Tests 04/25/17 04/25/17 04/25/17 15:00 15:00 15:00 WBC 9.5 D RBC 3.90 Hgb 11.2 Hct 32.7 MCV 83.8 MCH 28.6 MCHC 34.1 RDW 14.8 Plt Count 328 D MPV 8.8 D Neutrophils % 72.0 D Lymphocytes % 22.5 D Monocytes % 4.3 Eosinophils % 0.7 Basophils % 0.5 Sodium 129 L Potassium 3.9 Chloride 92 L D Carbon Dioxide 23 Anion Gap 14 BUN 8 D Creatinine 0.6 Creat Clearance w eGFR > 60 Random Glucose 111 H D Calcium 8.8 Total Bilirubin 0.6 AST 19 D ALT 25 D Alkaline Phosphatase 150 H D Total Protein 8.4 H D Albumin 3.7 D Urine Color Urine Appearance Urine pH Ur Specific [place] Urine Protein Urine Glucose (UA) Urine Ketones Urine Blood Urine Nitrite Urine Bilirubin Urine Urobilinogen Ur Leukocyte Esterase Urine RBC Urine WBC Ur Epithelial Cells Urine Bacteria Urine Yeast RPR Titer Nonreactive 04/25/17 20:47 WBC RBC Hgb Hct MCV MCH MCHC RDW Plt Count MPV Neutrophils % Lymphocytes % Monocytes % Eosinophils % Basophils % Sodium Potassium Chloride Carbon Dioxide Anion Gap BUN Creatinine Creat Clearance w eGFR Random Glucose Calcium Total Bilirubin AST ALT Alkaline Phosphatase Total Protein Albumin Urine Color Ltyellow Urine Appearance Clear Urine pH 6.0 Ur Specific [place] 1.015 Urine Protein Negative Urine Glucose (UA) Negative Urine Ketones Negative Urine Blood Negative Urine Nitrite Negative Urine Bilirubin Negative Urine Urobilinogen Negative Ur Leukocyte Esterase 1+ H Urine RBC 1 Urine WBC 2 Ur Epithelial Cells Rare Urine Bacteria Many Urine Yeast Rare RPR Titer awake/alert ambulating no acute distress Assessment: 04/26/17 11:58 withdrawal sx Plan: continue detox increase fluids
--- NOTE | 2017-04-26 15:02 | CONSULT ---
[facility] Psychiatric Consult - Data Date of interview: 04/26/17 Admission source: [facility] Identifying data: One of several admissions to [facility] for this 67 y/o female seeking detox treatment on for alcohol and opioid dependence.Patient is single,a mother of one,homeless (assisted),unemployed and supported on Social Security benefits. Substance Abuse History: Confirmed by patient.Ms Ricks is currently pressuring this clinician for methadone. Smoking Cessation. Smoking history: Current every day smoker. Have you smoked in the past 12 months: Yes. Aproximately how many cigarettes per day: 7. Cigars Per Day: 0. Hx Chewing Tobacco Use: No. Initiated information on smoking cessation: Yes. 'Breaking Loose' booklet given: 04/25/17 (GIVEN ON UNIT.). - Substance & Tx. History. Hx Alcohol Use: Yes. Hx Substance Use: Yes. Substance Use Type: Alcohol. Hx Substance Use Treatment: Yes (1 Previous Detox admission.). - Substances Abused. alcohol- voda, rum. Route: Oral. Frequency: Daily. Amount used: 2 pints vodka, rum. Age of first use: 13. Date of Last Use: 04/25/17 Medical History: Hepatitis C and hypertension. Psychiatric History: Disorganized,irritable and hostile historian.Patient is unreliable.Medication-seeking (methadone,inflated dose of seroquel).Ms Ricks reports that she was just discharged from the psychiatric inpatient service at [facility] on seroquel + sertraline.This information remains questionable.Survey of pharmacy claims indicates evidence of scripts for seroquel 50 mg/hs (04/04/17) + zoloft 200 mg/day (02/02/17) at [facility] # [id number].No clear data about current OPD care.As per records,patient is diagnosed with Bipolar Disorder and presents with a history of multiple psychiatric hospitalizations ( [facility]).Noted history of suicide attempts (cutting). Physical/Sexual Abuse/Trauma History: No information. Additional Comment: Urine Drug Screen Results: BAR-Barbiturates.Noted. Mental Status Exam - Mental Status Exam Alert and Oriented to: Time, Person Cognitive Function: Impaired Patient Appearance: Unkempt, Disheveled, Inappropriate (pants dropping below waistline) Mood: Angry (for no apparent reason), Hostile, Irritable Affect: Blunted Patient Behavior: Inappropriate, Restless, Uncooperative (difficult to redirect, self-entitled,needy and pushing limits), Impulsive (defiant), Talkative ( argumentative,verbally abusive to staff) Speech Pattern: Inappropriate, Perseverating (about having MD prescribe methadone against current protocol) Voice Loudness: Moderately Loud Thought Process: Disorganized, Disoriented (to place : thinks that she is in [place],receiving treatment at [facility]) Thought Disorder: Bizarre Hallucinations: Denies Suicidal Ideation: Denies Homicidal Ideation: Denies Insight/Judgement: Poor Sleep: Poorly, Difficulty falling asleep Appetite: Good Gait/Station: Normal (ambulatory) Psychiatric Findings - Problem List ([place] 1, 2,3) (1) Alcohol dependence with uncomplicated withdrawal Current Visit: Yes Status: Chronic (2) Nicotine dependence Current Visit: Yes Status: Chronic Qualifiers: Nicotine product type: cigarettes Substance use status: uncomplicated Qualified Code(s): F17.210 - Nicotine dependence, cigarettes, uncomplicated (3) Substance induced mood disorder Current Visit: Yes Status: Acute (4) Personality disorder, unspecified Current Visit: Yes Status: Chronic (5) Impulse control disorder, unspecified Current Visit: Yes Status: Chronic (6) Depressive disorder Current Visit: Yes Status: Chronic Comment: As per records. (7) History of seizures Current Visit: Yes Status: Chronic Comment: Due to Traumatic Head Injury. (8) Hypertension Current Visit: Yes Status: Chronic Qualifiers: Hypertension type: essential hypertension Qualified Code(s): I10 - Essential (primary) hypertension (9) Insomnia Current Visit: Yes Status: Acute - Initial Treatment Plan Initial Treatment Plan: Psychoeducation is attempted in this session : patient not receptive.Detoxification is under way.Medications reviewed.Will restart zoloft at 100 mg/day (due to current OPD non-compliance) + seroquel 50 mg po hs (verified through pharmacy claims).Firm limits are necessary to address this presentation consistent with antisocial/borderline/manipulative behavior.NO psychosis present.Ms Ricks is simply invested in bending rules/regulations for her own maladaptive gratification.Close observation for unpredictable behavior.Will monitor clinical progress.
[2017-04-26] MEDS: chlordiazePOXIDE HCL 25 MG CAPSULE PO PRN (18:06)
[2017-04-26] MEDS ORDERED: QUEtiapine FUMARATE 25 MG TABLET (FP) PO ONE (20:15)
[2017-04-26] MEDS ORDERED: SERTRALINE HCL 50 MG TABLET (FP) PO ONE (20:15)
[2017-04-26] MEDS ORDERED: QUEtiapine FUMARATE 50 MG TABLET PO SCH (22:00)
[2017-04-26] MEDS: diphenhydrAMINE HCL 50 MG CAPSULE PO PRN (22:28)
[2017-04-26] MEDS: THIAMINE HCL 100 MG TABLET (FP) PO SCH (22:28)
[2017-04-27] MEDS: chlordiazePOXIDE HCL 25 MG CAPSULE PO SCH ×2 (05:58→10:43)
[2017-04-27] MEDS: GABAPENTIN 100 MG CAPSULE (FP) PO SCH ×3 (05:58→21:29)
[2017-04-27] MEDS: chlordiazePOXIDE HCL 25 MG CAPSULE PO PRN ×3 (07:59→18:45)
[2017-04-27] MEDS: SERTRALINE HCL 50 MG TABLET (FP) PO SCH (10:43)
[2017-04-27] MEDS: PRENATAL VITAMINS W/ FOLIC ACID TABLET (FP) PO SCH (10:43)
[2017-04-27] MEDS: amLODIPine BESYLATE 10 MG TABLET (FP) PO SCH (10:43)
[2017-04-27] MEDS: LISINOPRIL 5 MG TABLET (FP) PO SCH (10:44)
--- NOTE | 2017-04-27 11:25 | PN ---
[facility] CIWA - CIWA Score Nausea/Vomitin-No Nausea/No Vomiting Muscle Tremors: 4-Moderate,w/Arms Extend Anxiety: 3 Agitation: 3 Paroxysmal Sweats: 3 Orientation: 0-Oriented Tacttile Disturbances: 0-None Auditory Disturbances: 0-None Visual Disturbances: 0-None Headache: 0-None Present CIWA-Ar Total Score: 13 S Progress Note (SOAP) Subjective: agitation anxiety sweats shakes interrupted sleep Objective: 04/27/17 11:24 Vital Signs Temperature 97.7 F 04/27/17 10:19 Pulse Rate 88 04/27/17 10:19 Respiratory Rate 20 04/27/17 10:19 Blood Pressure 130/90 04/27/17 10:20 O2 Sat by Pulse Oximetry (%) Laboratory Tests 04/25/17 04/25/17 04/25/17 15:00 15:00 15:00 WBC 9.5 D RBC 3.90 Hgb 11.2 Hct 32.7 MCV 83.8 MCH 28.6 MCHC 34.1 RDW 14.8 Plt Count 328 D MPV 8.8 D Neutrophils % 72.0 D Lymphocytes % 22.5 D Monocytes % 4.3 Eosinophils % 0.7 Basophils % 0.5 Sodium 129 L Potassium 3.9 Chloride 92 L D Carbon Dioxide 23 Anion Gap 14 BUN 8 D Creatinine 0.6 Creat Clearance w eGFR > 60 Random Glucose 111 H D Calcium 8.8 Total Bilirubin 0.6 AST 19 D ALT 25 D Alkaline Phosphatase 150 H D Total Protein 8.4 H D Albumin 3.7 D Urine Color Urine Appearance Urine pH Ur Specific [place] Urine Protein Urine Glucose (UA) Urine Ketones Urine Blood Urine Nitrite Urine Bilirubin Urine Urobilinogen Ur Leukocyte Esterase Urine RBC Urine WBC Ur Epithelial Cells Urine Bacteria Urine Yeast RPR Titer Nonreactive 04/25/17 20:47 WBC RBC Hgb Hct MCV MCH MCHC RDW Plt Count MPV Neutrophils % Lymphocytes % Monocytes % Eosinophils % Basophils % Sodium Potassium Chloride Carbon Dioxide Anion Gap BUN Creatinine Creat Clearance w eGFR Random Glucose Calcium Total Bilirubin AST ALT Alkaline Phosphatase Total Protein Albumin Urine Color Ltyellow Urine Appearance Clear Urine pH 6.0 Ur Specific [place] 1.015 Urine Protein Negative Urine Glucose (UA) Negative Urine Ketones Negative Urine Blood Negative Urine Nitrite Negative Urine Bilirubin Negative Urine Urobilinogen Negative Ur Leukocyte Esterase 1+ H Urine RBC 1 Urine WBC 2 Ur Epithelial Cells Rare Urine Bacteria Many Urine Yeast Rare RPR Titer awake/alert ambulating no acute distress Assessment: 04/27/17 11:25 withdrawal sx Plan: continue detox increase fluids
[2017-04-27] MEDS: IBUPROFEN 400 MG TABLET (FP) PO PRN ×2 (14:07→22:20)
[2017-04-27] MEDS: hydrOXYzine PAMOATE 50 MG CAPSULE (FP) PO PRN ×2 (15:58→22:20)
[2017-04-27] MEDS: chlordiazePOXIDE 5 MG CAPSULE PO SCH ×2 (17:00→22:28)
[2017-04-27] MEDS ORDERED: cloNIDine HCL 0.1 MG TABLET PO ONE (18:59)
[2017-04-27] MEDS ORDERED: CYCLOBENZAPRINE HCL 10 MG TABLET (FP) PO ONE (19:00)
[2017-04-27] MEDS: diphenhydrAMINE HCL 50 MG CAPSULE PO PRN (21:29)
[2017-04-27] MEDS ORDERED: HALOPERIDOL 5 MG TABLET (FP) PO ONE (21:51)
[2017-04-27] MEDS ORDERED: QUEtiapine FUMARATE 100 MG TABLET (FP) PO SCH (22:00)
--- NOTE | 2017-04-27 22:02 | PN ---
S Progress Note Note: called by the nurse Valderrama regarding the patient's irritable, agitated behavior , patient is cursing, verbally threatening " to punch the female peer in the face" abusive, disorganize and disrespectful, reviewed the medical staff notes and Haldol 5 mg stat ordered as well as Haldol 2mg q 4hr and Cogentin 1 mg po q 4hr for agitation.
[2017-04-27] MEDS: BENZTROPINE MESYLATE 1 MG TABLET (FP) PO PRN (22:19)
[2017-04-27] MEDS: THIAMINE HCL 100 MG TABLET (FP) PO SCH (22:29)
[2017-04-28] MEDS: diphenhydrAMINE HCL 50 MG CAPSULE PO PRN (00:48)
[2017-04-28] MEDS: chlordiazePOXIDE 5 MG CAPSULE PO SCH ×2 (05:30→10:36)
[2017-04-28] MEDS: GABAPENTIN 100 MG CAPSULE (FP) PO SCH ×3 (05:30→22:05)
[2017-04-28] MEDS ORDERED: QUEtiapine FUMARATE 50 MG TABLET PO SCH ×3 (10:00→22:00)
[2017-04-28] MEDS: SERTRALINE HCL 50 MG TABLET (FP) PO SCH (10:36)
[2017-04-28] MEDS: LISINOPRIL 5 MG TABLET (FP) PO SCH (10:36)
[2017-04-28] MEDS: PRENATAL VITAMINS W/ FOLIC ACID TABLET (FP) PO SCH (10:36)
[2017-04-28] MEDS: amLODIPine BESYLATE 10 MG TABLET (FP) PO SCH (10:36)
--- NOTE | 2017-04-28 10:54 | PN ---
[facility] Progress Note (SOAP) Subjective: irritable anxiety sweats Objective: 04/28/17 10:52 Vital Signs Temperature 98.1 F 04/28/17 09:41 Pulse Rate 80 04/28/17 09:41 Respiratory Rate 18 04/28/17 09:41 Blood Pressure 158/92 04/28/17 09:41 O2 Sat by Pulse Oximetry (%) awake/alert ambulating no acute distress Assessment: 04/28/17 10:54 withdrawal sx Plan: continue detox increase fluids clonidine 0.1mg bid d/c in am
[2017-04-28] MEDS ORDERED: cloNIDine HCL 0.1 MG TABLET PO SCH (11:00)
--- NOTE | 2017-04-28 11:37 | EKG ---
Test Reason : Blood Pressure : / mmHG Vent. Rate : 077 BPM Atrial Rate : 077 BPM P-R Int : 182 ms QRS Dur : 090 ms QT Int : 380 ms P-R-T Axes : 014 044 048 degrees QTc Int : 430 ms NORMAL SINUS RHYTHM NORMAL ECG WHEN COMPARED WITH ECG OF 06-FEB-2017 23:41, T WAVE AMPLITUDE HAS INCREASED IN LATERAL LEADS Confirmed by BANDAR MATUTE MD ([id number]) on 04/28/2017 11:37:35 AM Referred By: Issa Cabral Confirmed By:BANDAR MATUTE MD
[2017-04-28] MEDS: HALOPERIDOL 2 MG TABLET PO PRN ×2 (12:11→16:57)
[2017-04-28] MEDS: BENZTROPINE MESYLATE 1 MG TABLET (FP) PO PRN (12:13)
[2017-04-28] MEDS: cloNIDine HCL 0.1 MG TABLET PO SCH ×2 (12:13→22:05)
[2017-04-28] MEDS: chlordiazePOXIDE HCL 25 MG CAPSULE PO PRN (14:14)
[2017-04-28] MEDS ORDERED: QUEtiapine FUMARATE 100 MG TABLET (FP) PO SCH ×2 (14:57→22:00)
--- NOTE | 2017-04-28 15:02 | PN ---
Psychiatric Progress Note Vital Signs: Vital Signs Period Temp Pulse Resp BP Sys/Turner Pulse Ox Last 24 Hr 97.5 F-99 F 48-90 18-20 123-158/60-92 Date of Session: 04/28/17 Chief Complaint:: Anxiety and Agitation HPI: As per nursing report patient found in nwithdrawal and mild confusion, anxiety and agitation Current Medications: Active Medications Generic Name Dose Route Start Last Admin Trade Name Freq PRN Reason Stop Dose Admin Acetaminophen 650 mg 04/25/17 15:21 04/27/17 16:35 Tylenol - PO 650 mg Q4H PRN Administration FEVER OR PAIN Al Hydroxide/Mg Hydroxide 30 ml 04/25/17 15:21 Mylanta Oral Suspension - PO Q6H PRN DYSPEPSIA Amlodipine Besylate 10 mg 04/25/17 16:30 04/28/17 10:36 Norvasc - PO 10 mg DAILY ROULA Administration Benztropine Mesylate 1 mg 04/27/17 21:52 04/28/17 12:13 Cogentin - PO 1 mg Q4H PRN Administration ANXIETY Chlordiazepoxide HCl 10 mg 04/28/17 17:00 Librium - PO 04/29/17 11:01 P1I-OUE ROULA Chlordiazepoxide HCl 25 mg 04/25/17 15:21 04/28/17 14:14 Librium - PO 04/28/17 15:20 25 mg Q4H PRN Administration WITHDRAWAL(CONT SUBST) Clonidine 0.1 mg 04/28/17 11:30 04/28/17 12:13 Catapres - PO 0.1 mg BID ROULA Administration Diphenhydramine HCl 50 mg 04/25/17 15:21 04/28/17 00:48 Benadryl - PO 50 mg HSMR1 PRN Administration INSOMNIA Eucalyptus/Menthol/Phenol/Sorbitol 1 each 04/25/17 15:21 Cepastat Lozenge - MM Q4H PRN SORE THROAT Gabapentin 100 mg 04/25/17 22:00 04/28/17 14:14 Neurontin - PO 100 mg TID ROULA Administration Guaifenesin 10 ml 04/25/17 15:21 Robitussin Dm - PO Q6H PRN COUGH Haloperidol 2 mg 04/27/17 21:55 04/28/17 12:11 Haldol - PO 2 mg Q4H PRN Administration AGITATION Hydroxyzine Pamoate 50 mg 04/25/17 15:21 04/27/17 22:20 Vistaril - PO 50 mg Q4H PRN Administration AGITATION Ibuprofen 400 mg 04/25/17 15:21 04/27/17 22:20 Motrin - PO 400 mg Q6H PRN Administration SEVERE PAIN Lisinopril 5 mg 04/26/17 11:00 04/28/17 10:36 Prinivil PO 5 mg DAILY ROULA Administration Loperamide HCl 4 mg 04/25/17 15:21 Imodium - PO Q6H PRN DIARRHEA Magnesium Citrate 300 ml 04/25/17 15:21 Citroma - PO Q48H PRN CONSTIPATION Magnesium Hydroxide 30 ml 04/25/17 15:21 Milk Of Magnesia - PO DAILY PRN CONSTIPATION Nicotine Polacrilex 2 mg 04/25/17 15:21 Nicorette Gum - BC Q2H PRN NICOTINE REPLACEMENT RX Multivit/Folic Acid/Iron 1 tab 04/26/17 10:00 04/28/17 10:36 Vitamins (Sjr) - PO 1 tab DAILY ROULA Administration Pseudoephedrine/Triprolidine 1 combo 04/25/17 15:21 Actifed - PO TID PRN NASAL CONGESTION Quetiapine Fumarate 150 mg 04/28/17 14:57 Seroquel - PO HS ROULA Quetiapine Fumarate 50 mg 04/28/17 22:00 Seroquel - PO HS ROULA Sertraline HCl 100 mg 04/27/17 10:00 04/28/17 10:36 Zoloft - PO 100 mg DAILY ROULA Administration Thiamine HCl 100 mg 04/25/17 22:00 04/27/17 22:29 Vitamin B1 - PO 100 mg HS ROULA Administration Medication(s) Change(s): Seroquel 50mg poqd, 150mg po qhs Mental Status Exam - Mental Status Exam Alert and Oriented to: Person Cognitive Function: Fair Patient Appearance: Unkempt Mood: Anxious Affect: Inappropriate Patient Behavior: Suspicious Speech Pattern: Excessive Voice Loudness: Normal Thought Process: Circumstantial Hallucinations: Denies Suicidal Ideation: Denies Homicidal Ideation: Denies Insight/Judgement: Fair Sleep: Difficulty falling asleep Appetite: Weight gain Muscle strength/Tone: Normal Gait/Station: Normal Additional Comments: Seroquel 50mg poqd, 150mg po qhs Psychiatric Treatment Plan - Problem List (1) Substance induced mood disorder Current Visit: Yes (2) Alcohol dependence with uncomplicated withdrawal Current Visit: Yes (3) History of depression Current Visit: Yes (4) Impulse control disorder, unspecified Current Visit: Yes (5) Nicotine dependence Current Visit: Yes Qualifiers: Nicotine product type: cigarettes Substance use status: uncomplicated Qualified Code(s): F17.210 - Nicotine dependence, cigarettes, uncomplicated (6) MDD (major depressive disorder) Current Visit: No (7) Drug-induced mood disorder Current Visit: Yes Initial treatment plan: Seroquel 50mg poqd, 150mg po qhs
[2017-04-28] MEDS: hydrOXYzine PAMOATE 50 MG CAPSULE (FP) PO PRN (16:57)
[2017-04-28] MEDS: chlordiazePOXIDE HCL 10 MG CAPSULE PO SCH ×2 (16:57→22:05)
[2017-04-28] MEDS ORDERED: CYCLOBENZAPRINE HCL 10 MG TABLET (FP) PO ONE (19:04)
[2017-04-28] MEDS ORDERED: cloNIDine HCL 0.1 MG TABLET PO ONE (19:05)
[2017-04-28] MEDS: IBUPROFEN 400 MG TABLET (FP) PO PRN (21:49)
[2017-04-28] MEDS: THIAMINE HCL 100 MG TABLET (FP) PO SCH (22:05)
[2017-04-29] MEDS: hydrOXYzine PAMOATE 50 MG CAPSULE (FP) PO PRN (04:44)
[2017-04-29] MEDS: chlordiazePOXIDE HCL 10 MG CAPSULE PO SCH ×2 (06:38→10:41)
[2017-04-29] MEDS: GABAPENTIN 100 MG CAPSULE (FP) PO SCH (06:38)
--- NOTE | 2017-04-29 09:29 | DS ---
[facility] Detox Discharge Summary Admission Date: 04/25/17 Discharge Date: 04/29/17 - History Present History: Alcohol Dependence - Physical Exam Results Vital Signs: Vital Signs Temperature 97.9 F 04/29/17 06:00 Pulse Rate 66 04/29/17 06:00 Respiratory Rate 18 04/29/17 06:00 Blood Pressure 121/53 04/29/17 06:00 O2 Sat by Pulse Oximetry (%) - Treatment Hospital Course: Detox Protocol Followed, Detoxed Safely, Responded well, Discharged Condition Good, Rehab Referral Accepted - Medication Discharge Medications: Ambulatory Orders Gabapentin 300 mg PO QID 10/22/14 Hydroxyzine Pamoate [Vistaril] 50 mg PO DAILY 10/22/14 Quetiapine Fumarate [Seroquel -] 200 mg PO HS 10/22/14 Buprenorphine/Naloxone [Suboxone 8Mg/2Mg Sl Film -] 1 each SL BID 04/25/17 Quetiapine Fumarate [Seroquel -] 50 mg PO HS #30 tablet 04/26/17 Sertraline HCl [Zoloft] 100 mg PO DAILY #30 tablet 04/26/17 - Diagnosis (1) Alcohol dependence with uncomplicated withdrawal Current Visit: Yes Status: Chronic (2) Nicotine dependence Current Visit: Yes Status: Chronic Qualifiers: Nicotine product type: cigarettes Substance use status: uncomplicated Qualified Code(s): F17.210 - Nicotine dependence, cigarettes, uncomplicated - AMA Did Patient Leave Against Medical Advice: No (going to [facility])
[2017-04-29] MEDS ORDERED: QUEtiapine FUMARATE 50 MG TABLET PO SCH ×2 (10:00)
[2017-04-29] MEDS ORDERED: QUEtiapine FUMARATE 100 MG TABLET (FP) PO SCH (10:00)
[2017-04-29] MEDS: LISINOPRIL 5 MG TABLET (FP) PO SCH (10:41)
[2017-04-29] MEDS: amLODIPine BESYLATE 10 MG TABLET (FP) PO SCH (10:41)
[2017-04-29] MEDS: PRENATAL VITAMINS W/ FOLIC ACID TABLET (FP) PO SCH (10:41)
[2017-04-29] MEDS: SERTRALINE HCL 50 MG TABLET (FP) PO SCH (10:41)
[2017-04-29] MEDS: cloNIDine HCL 0.1 MG TABLET PO SCH (10:41)
[2017-04-29 10:43] VITALS: BP 140/80; PULSE 82; TEMP 97.5
== END 2017-04-29 11:15 | disposition home or self-care (01) | DRG 897 ==
LOC: YASAS 09:36 → Y6N 14:43
PROVIDERS: ADMIT Internal Medicine Addiction Medicine; ATTEND Internal Medicine Addiction Medicine
PROC: HZ2ZZZZ Detoxification Services for Substance Abuse Treatment (ICD-10-PCS; principal; 2017-04-29)
DX: F10.230 Alcohol dependence with withdrawal, uncomplicated (principal); F33.9 Major depressive disorder, recurrent, unspecified; F17.210 Nicotine dependence, cigarettes, uncomplicated; F19.24 Other psychoactive substance dependence with psychoactive substance-induced mood disorder; F60.9 Personality disorder, unspecified; G47.00 Insomnia, unspecified; I10 Essential (primary) hypertension; Z86.69 Personal history of other diseases of the nervous system and sense organs; Z87.828 Personal history of other (healed) physical injury and trauma
CPT/HCPCS: 36415; 80053; 81003; 81015; 85025; 86593; 93005; 93010

== ENCOUNTER 2017-10-05 21:26 | Inpatient (IN) | payer MEDICARE, OTHER ==
[2017-10-05 21:58] VITALS: BMI 27.3
--- NOTE | 2017-10-05 21:58 | HP ---
CIWA Score - CIWA Score Nausea/Vomitin Muscle Tremors: 4-Moderate,w/Arms Extend Anxiety: 4-Mod. Anxious/Guarded Agitation: 4-Moderately Restless Paroxysmal Sweats: No Perspiration Orientation: 0-Oriented Tacttile Disturbances: 0-None Auditory Disturbances: 0-None Visual Disturbances: 0-None Headache: 4-Moderately Severe CIWA-Ar Total Score: 18 Admission ROS S - HPI Chief Complaint: Alcohol withdrawal symptoms Allergies/Adverse Reactions: Allergies Allergy/AdvReac Type Severity Reaction Status Date / Time No Known Allergies Allergy Verified 02/04/17 23:51 History of Present Illness: 67 years old female with a long history of alcohol dependence is admitted to detox. Patient has been in previous detox and reports 2 years of sobriety. She has medical history of HTN, depression, Hep C and seizures. Patient reports suicide attempt in June 2017 and denies suicidal ideation at this time. Patient reports that she was on buprenorphine but has been using heroin for a while. She is unable to provide reliable information about her prescription information. Current buprenorphine prescription needs to be verified. Exam Limitations: No Limitations - Ebola screening Have you traveled outside of the country in the last 21 days: No Have you had contact with anyone from an Ebola affected area: No Have you been sick,other than usual withdrawal symptoms: No Do you have a fever: No - Review of Systems Constitutional: Chills, Loss of Appetite, Malaise, Night Sweats, Changes in sleep EENT: reports: Blurred Vision, Nose Congestion, Sinus Pressure Respiratory: reports: No Symptoms reported Cardiac: reports: No Symptoms Reported GI: reports: Nausea, Poor Appetite, Poor Fluid Intake, Abdominal cramping : reports: No Symptoms Reported Musculoskeletal: reports: Back Pain, Muscle Pain, Muscle Weakness Integumentary: reports: Dryness, Flushing Neuro: reports: Tingling, Tremors Endocrine: reports: No Symptoms Reported Hematology: reports: No Symptoms Reported Psychiatric: reports: Agitated, Anxious, Depressed Other Systems: Reviewed and Negative Patient History - Patient Medical History Hx Anemia: No Hx Asthma: No Hx Chronic Obstructive Pulmonary Disease (COPD): No Hx Cancer: No Hx Cardiac Disorders: No Hx Congestive Heart Failure: No Hx Hypertension: Yes Hx Hypercholesterolemia: No Hx Pacemaker: No HX Cerebrovascular Accident: No Hx Seizures: Yes (r/t head trauma. Last episode 2016) Hx Dementia: No Hx Diabetes: No Hx Gastrointestinal Disorders: No Hx Liver Disease: Yes (hep c ab positive; Started treatment, but did not complete. ) Hx Genitourinary Disorders: No Hx Sexually Transmitted Disorders: No Hx Renal Disease (ESRD): No Hx Thyroid Disease: No Hx Human Immunodeficiency Virus (HIV): No (Negative 2016) Hx Hepatitis C: Yes (Started Treatment, but did not complete.) Hx Depression: Yes (On meds.) Hx Suicide Attempt: No (REPORTS SUICIDE ATTEMPT IN 2016. PATIENT DENIES CURRENT SI / HI.) Hx Bipolar Disorder: No Hx Schizophrenia: No - Patient Surgical History Past Surgical History: Yes Hx Neurologic Surgery: No Hx Cataract Extraction: No Hx Cardiac Surgery: No Hx Lung Surgery: No Hx Breast Surgery: No Hx Breast Biopsy: No Hx Abdominal Surgery: No Hx Appendectomy: No Hx Cholecystectomy: No Hx Genitourinary Surgery: No Hx Section: Yes ( 1974) Hx Orthopedic Surgery: No Anesthesia Reaction: Yes (DIFFICULTY WAKING UP) - PPD History Previous Implant?: Yes Implanted On Prior [facility] Admission?: Yes Date: 02/07/17 Results: 0mm PPD to be Administered?: No - Reproductive History Patient is a Female of Child Bearing Age (11 -55 yrs old): Yes LMP comment: MENOPAUSE Patient : No (MENOPAUSE) - Smoking Cessation Smoking history: Current every day smoker Have you smoked in the past 12 months: Yes Aproximately how many cigarettes per day: 20 Cigars Per Day: 0 Hx Chewing Tobacco Use: No Initiated information on smoking cessation: Yes 'Breaking Loose' booklet given: 10/05/17 - Substance & Tx. History Hx Alcohol Use: Yes Hx Substance Use: Yes Substance Use Type: Alcohol Hx Substance Use Treatment: Yes ([facility] 03/2017) - Substances Abused Alcohol Route: Oral Frequency: Daily Amount used: BACARDI - 1 PINT Age of first use: 13 Date of Last Use: 10/05/17 Family Disease History - Family Disease History Family Disease History: Heart Disease: Father (), Other: Father, Mother (no contact), Brother ( hiv), Sister () Admission Physical Exam S - Physical General Appearance: Yes: Moderate Distress, Tremorous, Irritable, Sweating, Anxious HEENTM: Yes: EOMI, Normal Voice, DON, Nasal Congestion, Other (NO TEETH, REPORTS UPPER AND LOWER DENTURES ARE MISSING) Respiratory: Yes: Lungs Clear, Normal Breath Sounds, No Respiratory Distress Neck: Yes: Supple Breast: Yes: Breast Exam Deferred Cardiology: Yes: Regular Rhythm, Tachycardia Abdominal: Yes: Normal Bowel Sounds, Soft, Protuberent Genitourinary: Yes: Within Normal Limits Back: Yes: Normal Inspection Musculoskeletal: Yes: Muscle Pain, Muscle weakness Extremities: Yes: Tremors Neurological: Yes: Alert, Normal Mood/Affect Integumentary: Yes: Dry Lymphatic: Yes: Within Normal Limits - Diagnostic (1) Alcohol dependence with uncomplicated withdrawal Current Visit: Yes Status: Chronic (2) History of depression Current Visit: Yes Status: Chronic (3) History of seizures Current Visit: Yes Status: Chronic Comment: Due to Traumatic Head Injury. (4) Hypertension Current Visit: Yes Status: Chronic Qualifiers: Hypertension type: essential hypertension Qualified Code(s): I10 - Essential (primary) hypertension (5) Nicotine dependence Current Visit: Yes Status: Chronic Qualifiers: Nicotine product type: cigarettes Substance use status: uncomplicated Qualified Code(s): F17.210 - Nicotine dependence, cigarettes, uncomplicated Cleared for Admission [facility] - Detox or Rehab [facility] Level of Care: Medically Managed Detox Regimen/Protocol: Librium S Breath Alcohol Content Breath Alcohol Content: 0
[2017-10-05] MEDS ORDERED: ACETAMINOPHEN 325 MG TABLET (FP) PO PRN (22:14)
[2017-10-05] MEDS ORDERED: chlordiazePOXIDE HCL 25 MG CAPSULE PO PRN (22:14)
[2017-10-05] MEDS ORDERED: MENTHOL/PHENOL 1 EACH UD MM PRN (22:14)
[2017-10-05] MEDS ORDERED: LOPERAMIDE HCL 2 MG CAPSULE PO PRN (22:14)
[2017-10-05] MEDS ORDERED: guaiFENesin/D-METHORPHAN HB 10 ML UNIT-DOSE CUPS PO PRN (22:14)
[2017-10-05] MEDS ORDERED: MAGNESIUM CITRATE 300 ML BOTTLE PO PRN (22:14)
[2017-10-05] MEDS ORDERED: MAG HYDROX/AL HYDROX/SIMETH 30 ML UNIT-DOSE CUP PO PRN (22:14)
[2017-10-05] MEDS ORDERED: P-EPHED 60MG/TRIPROLIDI 2.5MG TABLET PO PRN (22:14)
[2017-10-05] MEDS ORDERED: MAGNESIUM HYDROX 2400MG/30ML ORAL SUSPENSION 30 ML CUP PO PRN (22:14)
[2017-10-05] MEDS ORDERED: IBUPROFEN 400 MG TABLET (FP) PO PRN (22:14)
[2017-10-05] MEDS ORDERED: NICOTINE POLACRILEX 2 MG GUM BC PRN (22:14)
[2017-10-06] MEDS: chlordiazePOXIDE HCL 25 MG CAPSULE PO SCH ×3 (00:03→10:38)
[2017-10-06] MEDS ORDERED: hydrOXYzine PAMOATE 50 MG CAPSULE (FP) PO ONE (00:09)
--- NOTE | 2017-10-06 07:30 | CONSULT ---
[facility] Psychiatric Consult - Data Date of interview: 10/06/17 Admission source: [facility] Identifying data: This is a 67 years old female, single, unemployed, on PA, with a long history of alcohol and Nicotine dependence is admitted to detox. Patient has been in previous detox and reports 2 years of sobriety. Substance Abuse History: - Smoking Cessation. Smoking history: Current every day smoker. Have you smoked in the past 12 months: Yes. Aproximately how many cigarettes per day: 20. Cigars Per Day: 0. Hx Chewing Tobacco Use: No. Initiated information on smoking cessation: Yes. 'Breaking Loose' booklet given : 10/05/17. - Substance & Tx. History. Hx Alcohol Use: Yes. Hx Substance Use : Yes. Substance Use Type: Alcohol. Hx Substance Use Treatment: Yes ([facility] 2016). - Substances Abused. Alcohol. Route: Oral. Frequency: Daily. Amount used: BACARDI - 1 PINT. Age of first use: 13. Date of Last Use: Medical History: Patient reports medical history of HTN, Hep C and seizures. Psychiatric History: Patient reports history of depression and Bipolar Disorder , reports history of suicidal attempt in June 2017 and denies suicidal ideation at this time. Patient reports that she was on buprenorphine but has been using heroin for a while. She is unable to provide reliable information about her prescription information. Current buprenorphine prescription needs to be verified. Physical/Sexual Abuse/Trauma History: Unclear Additional Comment: Observation. Detox Unit Care Protocol Mental Status Exam - Mental Status Exam Alert and Oriented to: Person Cognitive Function: Fair Patient Appearance: Unkempt Mood: Sad Affect: Flat Patient Behavior: Sedated Speech Pattern: Delayed Voice Loudness: Mildly Soft/Quiet Thought Process: Circumstantial Thought Disorder: Being Controlled Hallucinations: Denies Suicidal Ideation: Denies Homicidal Ideation: Denies Insight/Judgement: Fair Sleep: Difficulty falling asleep Appetite: Weight loss Muscle strength/Tone: Mild Hypotonicity Gait/Station: Shuffling Additional Comments: Observation. Detox Unit Care Protocol Psychiatric Findings - Problem List ([place] 1, 2,3) (1) Drug-induced mood disorder Status: Acute (2) MDD (major depressive disorder) Status: Acute (3) Substance induced mood disorder Status: Acute (4) Alcohol dependence with uncomplicated withdrawal Status: Chronic (5) History of depression Status: Chronic (6) History of seizures Status: Chronic Comment: Due to Traumatic Head Injury. (7) Impulse control disorder, unspecified Status: Chronic (8) Personality disorder, unspecified Status: Chronic - Initial Treatment Plan Initial Treatment Plan: Observation. Detox Unit Care Protocol. Patient refusing pharmacological intervention
--- NOTE | 2017-10-06 09:31 | PN ---
S CIWA - CIWA Score Nausea/Vomitin-Mild Nausea/No Vomiting Muscle Tremors: 4-Moderate,w/Arms Extend Anxiety: 4-Mod. Anxious/Guarded Agitation: 4-Moderately Restless Paroxysmal Sweats: 1-Minimal Palms Moist Orientation: 0-Oriented Tacttile Disturbances: 0-None Auditory Disturbances: 0-None Visual Disturbances: 0-None Headache: 0-None Present CIWA-Ar Total Score: 14 [facility] Progress Note (SOAP) Subjective: sweat tremor restlessness anxiety agitation Objective: 10/06/17 09:30 Vital Signs Temperature 97.3 F L 10/06/17 06:22 Pulse Rate 63 10/06/17 06:22 Respiratory Rate 16 10/06/17 06:22 Blood Pressure 150/81 10/06/17 06:22 O2 Sat by Pulse Oximetry (%) lab not available Assessment: 10/06/17 09:30 withdrawal sx Plan: continue detox
[2017-10-06] MEDS ORDERED: BUPRENORPHINE/NALOXONE 8 MG/2 MG FILM PACKET SL SCH (10:00)
[2017-10-06] MEDS ORDERED: amLODIPine BESYLATE 10 MG TABLET (FP) PO SCH (10:00)
[2017-10-06] MEDS ORDERED: NICOTINE 14 MG/24 HOURS TOPICAL PATCH TD SCH (10:00)
[2017-10-06] MEDS ORDERED: PRENATAL VITAMINS W/ FOLIC ACID TABLET (FP) PO SCH (10:00)
[2017-10-06 10:12] LABS: HEMATOCRIT 33.8 % (32.4-45.2); HEMOGLOBIN 11.1 GM/dL (10.7-15.3); MCH 28.5 pg (25.7-33.7); MCHC 32.7 g/dl (32.0-36.0); MEAN CELL VOLUME 87.1 fl (80-96); MEAN PLT VOLUME 9.7 fl (7.5-11.1); PLATELET COUNT 147 K/MM3 (134-434); RBC 3.88 M/mm3 (3.60-5.2); RDW 15.9 % (11.6-15.6); WHITE BLOOD COUNT 4.5 K/mm3 (4.0-10.0)
[2017-10-06 10:22] LABS: CHLORIDE 107 mmol/L (98-107); POTASSIUM 3.9 mmol/L (3.5-5.1); SODIUM 142 mmol/L (136-145)
[2017-10-06 10:29] LABS: ALBUMIN 3.4 g/dl (3.4-5.0); ALK PHOS 98 U/L (45-117); ANION GAP 6 (8-16); BILIRUBIN,TOTAL 0.5 mg/dL (0.2-1.0); BLOOD UREA NITROGEN 14 mg/dL (7-18); CALCIUM 8.4 mg/dL (8.5-10.1); CO2 29 mmol/L (21-32); CREATININE 0.5 mg/dL (0.55-1.02); GLUCOSE,RANDOM 93 mg/dL (74-106); SGOT/AST 45 U/L (15-37); SGPT/ALT 57 U/L (12-78)
--- NOTE | 2017-10-06 12:16 | EKG ---
Test Reason : Blood Pressure : / mmHG Vent. Rate : 078 BPM Atrial Rate : 078 BPM P-R Int : 196 ms QRS Dur : 090 ms QT Int : 382 ms P-R-T Axes : 062 019 036 degrees QTc Int : 435 ms SINUS RHYTHM WITH OCCASIONAL PREMATURE VENTRICULAR COMPLEXES SEPTAL INFARCT , AGE UNDETERMINED ABNORMAL ECG WHEN COMPARED WITH ECG OF 25-APR-2017 16:37, PREMATURE VENTRICULAR COMPLEXES ARE NOW PRESENT Confirmed by GIOVANI LANE, BANDAR ([id number]) on 10/06/2017 12:15:38 PM Referred By: Confirmed By:BANDAR MATUTE MD
[2017-10-06] MEDS ORDERED: PHENYTOIN NA EXTENDED 100 MG CAPSULE (FP) PO SCH (14:00)
[2017-10-06 14:01] VITALS: BP 156/85; PULSE 77; TEMP 96.4
[2017-10-06] MEDS ORDERED: QUEtiapine FUMARATE 100 MG TABLET (FP) PO STA (14:15)
--- NOTE | 2017-10-06 14:22 | PN ---
Psychiatric Progress Note Vital Signs: Vital Signs Period Temp Pulse Resp BP Sys/Turner Pulse Ox Last 24 Hr 96.4 F-97.7 F 63-97 16-18 142-171/81-99 Date of Session: 10/06/17 Chief Complaint:: Anxiety, irritability HPI: As per nursing report patiwnt is loud, anxious, irritable and need evaluation. Patient reports taking prior to admission: Seroquel 200mg po bid Current Medications: Active Medications Generic Name Dose Route Start Last Admin Trade Name Freq PRN Reason Stop Dose Admin Acetaminophen 650 mg 10/05/17 22:14 Tylenol - PO Q4H PRN FEVER Al Hydroxide/Mg Hydroxide 30 ml 10/05/17 22:14 Mylanta Oral Suspension - PO Q6H PRN DYSPEPSIA Amlodipine Besylate 10 mg 10/06/17 10:00 10/06/17 10:39 Norvasc - PO 10 mg DAILY ROULA Administration Buprenorphine/Naloxone 1 each 10/06/17 10:00 10/06/17 10:39 Suboxone 8mg/2mg Sl Film - SL 10/13/17 09:59 1 each DAILY ROULA Administration Chlordiazepoxide HCl 50 mg 10/05/17 23:00 10/06/17 10:38 Librium - PO 10/06/17 17:01 50 mg [id number] ROULA Administration Chlordiazepoxide HCl 25 mg 10/06/17 23:00 Librium - PO 10/07/17 17:01 [id number] ROULA Chlordiazepoxide HCl 15 mg 10/07/17 23:00 Librium - PO 10/08/17 17:01 [id number] ROULA Chlordiazepoxide HCl 25 mg 10/05/17 22:14 10/06/17 13:21 Librium - PO 10/08/17 22:13 25 mg Q4H PRN Administration WITHDRAWAL(CONT SUBST) Chlordiazepoxide HCl 10 mg 10/08/17 23:00 Librium - PO 10/09/17 17:01 [id number] ROULA Eucalyptus/Menthol/Phenol/Sorbitol 1 each 10/05/17 22:14 Cepastat Lozenge - MM Q4H PRN SORE THROAT Guaifenesin 10 ml 10/05/17 22:14 Robitussin Dm - PO Q6H PRN COUGH Ibuprofen 400 mg 10/05/17 22:14 Motrin - PO Q6H PRN PAIN LEVEL 4-6 Loperamide HCl 4 mg 10/05/17 22:14 Imodium - PO Q6H PRN DIARRHEA Magnesium Citrate 300 ml 10/05/17 22:14 Citroma - PO Q48H PRN CONSTIPATION Magnesium Hydroxide 30 ml 10/05/17 22:14 Milk Of Magnesia - PO DAILY PRN CONSTIPATION Nicotine 14 mg 10/06/17 10:00 10/06/17 10:39 Nicoderm Patch - TD Not Given DAILY ROULA Nicotine Polacrilex 2 mg 10/05/17 22:14 Nicorette Gum - BC Q2H PRN NICOTINE REPLACEMENT RX Phenytoin Sodium 100 mg 10/06/17 14:00 10/06/17 13:20 Dilantin - PO 100 mg TID ROULA Administration Multivit/Folic Acid/Iron 1 tab 10/06/17 10:00 10/06/17 10:39 Vitamins (Sjr) - PO 1 tab DAILY ROULA Administration Pseudoephedrine/Triprolidine 1 combo 10/05/17 22:14 Actifed - PO TID PRN NASAL CONGESTION Quetiapine Fumarate 200 mg 10/06/17 14:15 Seroquel - PO 10/06/17 14:16 ONCE STA Quetiapine Fumarate 200 mg 10/06/17 22:00 Seroquel - PO BID ROULA Thiamine HCl 100 mg 10/06/17 22:00 Vitamin B1 - PO HS [facility] Medication(s) Change(s): Seroquel 200mg po atat. Seroquel 200mg po bid Mental Status Exam - Mental Status Exam Alert and Oriented to: Person Cognitive Function: Fair Patient Appearance: Unkempt Mood: Nervous, Anxious, Irritable Affect: Labile Patient Behavior: Talkative, Agitated Speech Pattern: Excessive Voice Loudness: Mildly Loud Thought Process: Circumstantial, Goal Oriented Thought Disorder: Being Controlled Hallucinations: Denies Suicidal Ideation: Denies Homicidal Ideation: Denies Insight/Judgement: Fair Sleep: Difficulty falling asleep Appetite: Fair Muscle strength/Tone: Normal Gait/Station: Normal Additional Comments: Seroquel 200mg po bid Psychiatric Treatment Plan - Problem List (1) Alcohol dependence with uncomplicated withdrawal Current Visit: Yes (2) Nicotine dependence Current Visit: Yes Qualifiers: Nicotine product type: cigarettes Substance use status: uncomplicated Qualified Code(s): F17.210 - Nicotine dependence, cigarettes, uncomplicated (3) Drug-induced mood disorder Current Visit: No (4) MDD (major depressive disorder) Current Visit: No (5) Substance induced mood disorder Current Visit: No (6) Personality disorder, unspecified Current Visit: No Initial treatment plan: Seroquel 200mg po bid
[2017-10-06] MEDS ORDERED: HALOPERIDOL 1 MG TABLET (FP) PO PRN (14:36)
--- NOTE | 2017-10-06 15:20 | PN ---
Psychiatric Progress Note Vital Signs: Vital Signs Period Temp Pulse Resp BP Sys/Turner Pulse Ox Last 24 Hr 96.4 F-97.7 F 63-97 16-18 142-171/81-99 Date of Session: 10/06/17 Chief Complaint:: as per nursing reports patient is depressed and exhibits suicidal thoughts HPI: Chart revieved, patient evaluated, patient isolating herself, reports depressed mood and suicidal ideation. Patient under 1:1 observation, prepared to be transfered to [facility] Current Medications: Active Medications Generic Name Dose Route Start Last Admin Trade Name Freq PRN Reason Stop Dose Admin Acetaminophen 650 mg 10/05/17 22:14 Tylenol - PO Q4H PRN FEVER Al Hydroxide/Mg Hydroxide 30 ml 10/05/17 22:14 Mylanta Oral Suspension - PO Q6H PRN DYSPEPSIA Amlodipine Besylate 10 mg 10/06/17 10:00 10/06/17 10:39 Norvasc - PO 10 mg DAILY ROULA Administration Buprenorphine/Naloxone 1 each 10/06/17 10:00 10/06/17 10:39 Suboxone 8mg/2mg Sl Film - SL 10/13/17 09:59 1 each DAILY ROULA Administration Chlordiazepoxide HCl 50 mg 10/05/17 23:00 10/06/17 10:38 Librium - PO 10/06/17 17:01 50 mg [id number] ROULA Administration Chlordiazepoxide HCl 25 mg 10/06/17 23:00 Librium - PO 10/07/17 17:01 [id number] ROULA Chlordiazepoxide HCl 15 mg 10/07/17 23:00 Librium - PO 10/08/17 17:01 [id number] ROULA Chlordiazepoxide HCl 25 mg 10/05/17 22:14 10/06/17 13:21 Librium - PO 10/08/17 22:13 25 mg Q4H PRN Administration WITHDRAWAL(CONT SUBST) Chlordiazepoxide HCl 10 mg 10/08/17 23:00 Librium - PO 10/09/17 17:01 [id number] ROULA Eucalyptus/Menthol/Phenol/Sorbitol 1 each 10/05/17 22:14 Cepastat Lozenge - MM Q4H PRN SORE THROAT Guaifenesin 10 ml 10/05/17 22:14 Robitussin Dm - PO Q6H PRN COUGH Haloperidol 1 mg 10/06/17 14:36 Haldol - PO Q4HWA PRN ANXIETY Ibuprofen 400 mg 10/05/17 22:14 Motrin - PO Q6H PRN PAIN LEVEL 4-6 Loperamide HCl 4 mg 10/05/17 22:14 Imodium - PO Q6H PRN DIARRHEA Magnesium Citrate 300 ml 10/05/17 22:14 Citroma - PO Q48H PRN CONSTIPATION Magnesium Hydroxide 30 ml 10/05/17 22:14 Milk Of Magnesia - PO DAILY PRN CONSTIPATION Nicotine 14 mg 10/06/17 10:00 10/06/17 10:39 Nicoderm Patch - TD Not Given DAILY ROULA Nicotine Polacrilex 2 mg 10/05/17 22:14 Nicorette Gum - BC Q2H PRN NICOTINE REPLACEMENT RX Phenytoin Sodium 100 mg 10/06/17 14:00 10/06/17 13:20 Dilantin - PO 100 mg TID ROULA Administration Multivit/Folic Acid/Iron 1 tab 10/06/17 10:00 10/06/17 10:39 Vitamins (Sjr) - PO 1 tab DAILY ROULA Administration Pseudoephedrine/Triprolidine 1 combo 10/05/17 22:14 Actifed - PO TID PRN NASAL CONGESTION Quetiapine Fumarate 200 mg 10/06/17 22:00 Seroquel - PO BID ROULA Thiamine HCl 100 mg 10/06/17 22:00 Vitamin B1 - PO HS [facility] Medication(s) Change(s): tRANSFER TO [facility] for safety with suicidal ideation Mental Status Exam - Mental Status Exam Alert and Oriented to: Person Cognitive Function: Fair Patient Appearance: Unkempt Mood: Depressed Affect: Flat Patient Behavior: Fatigued Speech Pattern: Delayed Voice Loudness: Mildly Soft/Quiet Thought Process: Circumstantial Thought Disorder: Present Hallucinations: Denies Suicidal Ideation: Current Homicidal Ideation: Denies Insight/Judgement: Impaired Sleep: Difficulty falling asleep Appetite: Weight gain Muscle strength/Tone: Normal Gait/Station: Normal Additional Comments: 1;1 observation, transfer to [facility] Psychiatric Treatment Plan - Problem List (1) Alcohol dependence with uncomplicated withdrawal Current Visit: Yes (2) Nicotine dependence Current Visit: Yes Qualifiers: Nicotine product type: cigarettes Substance use status: uncomplicated Qualified Code(s): F17.210 - Nicotine dependence, cigarettes, uncomplicated (3) Drug-induced mood disorder Current Visit: No (4) MDD (major depressive disorder) Current Visit: No (5) Substance induced mood disorder Current Visit: No (6) Personality disorder, unspecified Current Visit: No Initial treatment plan: 1;1 observation, transfer to [facility]
[2017-10-06] MEDS ORDERED: QUEtiapine FUMARATE 100 MG TABLET (FP) PO SCH (22:00)
[2017-10-06] MEDS ORDERED: THIAMINE HCL 100 MG TABLET (FP) PO SCH (22:00)
[2017-10-06] MEDS ORDERED: QUEtiapine FUMARATE 200 MG TABLET PO SCH (22:00)
[2017-10-06] MEDS ORDERED: chlordiazePOXIDE HCL 25 MG CAPSULE PO SCH (23:00)
[2017-10-07] MEDS ORDERED: SERTRALINE HCL 50 MG TABLET (FP) PO SCH (10:00)
--- NOTE | 2017-10-07 14:23 | EKG ---
Test Reason : Blood Pressure : / mmHG Vent. Rate : 066 BPM Atrial Rate : 066 BPM P-R Int : 206 ms QRS Dur : 092 ms QT Int : 430 ms P-R-T Axes : 060 019 025 degrees QTc Int : 450 ms NORMAL SINUS RHYTHM INCOMPLETE RIGHT BUNDLE BRANCH BLOCK SEPTAL INFARCT (CITED ON OR BEFORE 06-OCT-2017) ABNORMAL ECG WHEN COMPARED WITH ECG OF 06-OCT-2017 00:19, POOR DATA QUALITY, INTERPRETATION MAY BE ADVERSELY AFFECTED Confirmed by ANDREA MORRIS MD ([id number]) on 10/07/2017 2:23:17 PM Referred By: Confirmed By:ANDREA MORRIS MD
[2017-10-07] MEDS ORDERED: chlordiazePOXIDE 5 MG CAPSULE PO SCH (23:00)
[2017-10-08] MEDS ORDERED: chlordiazePOXIDE HCL 10 MG CAPSULE PO SCH (23:00)
== END 2017-10-06 15:40 | DRG 897 ==
LOC: YASAS 21:26 → Y6N 22:55
PROVIDERS: ADMIT Internal Medicine; ATTEND Internal Medicine
PROC: HZ2ZZZZ Detoxification Services for Substance Abuse Treatment (ICD-10-PCS; principal; 2017-10-05)
DX: F19.230 Other psychoactive substance dependence with withdrawal, uncomplicated (principal); F33.9 Major depressive disorder, recurrent, unspecified; F10.230 Alcohol dependence with withdrawal, uncomplicated; F17.210 Nicotine dependence, cigarettes, uncomplicated; F19.24 Other psychoactive substance dependence with psychoactive substance-induced mood disorder; F60.9 Personality disorder, unspecified; I10 Essential (primary) hypertension; B18.2 Chronic viral hepatitis C; G40.909 Epilepsy, unspecified, not intractable, without status epilepticus; R00.0 Tachycardia, unspecified; Z91.5 Personal history of self-harm
CPT/HCPCS: 36415; 80053; 80185; 85027; 86593; 93005; 93010

== ENCOUNTER 2018-02-02 10:18 | Inpatient (IN) | payer OTHER ==
[2018-02-02 11:53] VITALS: BMI 30.4
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
--- NOTE | 2018-02-02 13:33 | HP ---
COWS - Scale Resting Pulse: 1= [place] 81-100 Sweatin= Chills/Flushing Restless Observation: 1= Difficult to Sit Still Pupil Size: 0= Normal to Room Light Bone or Joint Aches: 2= Severe Diffuse Aches Runny Nose/ Eye Tearin= Runny Nose/Eyes GI Upset > 30mins: 2= Nausea/Diarrhea Tremor Observation: 2= Slight Tremor Visible Yawning Observation: 2= >3x During Session Anxiety or Irritability: 2=Irritable/Anxious Goose Flesh Skin: 0=Smooth Skin COWS Score: 15 CIWA Score - CIWA Score Nausea/Vomitin-Mild Nausea/No Vomiting Muscle Tremors: 4-Moderate,w/Arms Extend Anxiety: 4-Mod. Anxious/Guarded Agitation: 4-Moderately Restless Paroxysmal Sweats: 1-Minimal Palms Moist Orientation: 1-Uncertain about Date Tacttile Disturbances: 1-Very Mild Itch/Numbness Auditory Disturbances: 0-None Visual Disturbances: 0-None Headache: 1-Very Mild CIWA-Ar Total Score: 17 Admission ROS S - HPI Chief Complaint: alcohol and opiate withdrawal sx Allergies/Adverse Reactions: Allergies Allergy/AdvReac Type Severity Reaction Status Date / Time No Known Allergies Allergy Verified 02/02/18 13:25 History of Present Illness: 67 years old female with long history of alcohol and opiate and nicotine dependence has hypertension gerd seizure and depression is admitted to detox Exam Limitations: No Limitations - Ebola screening Have you traveled outside of the country in the last 21 days: No (N) Have you had contact with anyone from an Ebola affected area: No Have you been sick,other than usual withdrawal symptoms: No Do you have a fever: No - Review of Systems Constitutional: Changes in sleep, Weight Stable EENT: reports: Blurred Vision (eye glasses), Dental Problems (multiple teeth missing) Respiratory: reports: No Symptoms reported Cardiac: reports: No Symptoms Reported GI: reports: Nausea, Poor Fluid Intake, Indigestion, Abdominal cramping : reports: No Symptoms Reported Musculoskeletal: reports: Joint Pain, Muscle Pain, Neck Pain Integumentary: reports: No Symptoms Reported Neuro: reports: Seizure (head trauma age 41 last episode 2016), Tremors Endocrine: reports: No Symptoms Reported Hematology: reports: No Symptoms Reported Psychiatric: reports: Judgement Intact, Anxious, Depressed Other Systems: Reviewed and Negative Patient History - Patient Medical History Hx Anemia: No Hx Asthma: No Hx Chronic Obstructive Pulmonary Disease (COPD): No Hx Cancer: No Hx Cardiac Disorders: No Hx Congestive Heart Failure: No Hx Hypertension: Yes Hx Hypercholesterolemia: No Hx Pacemaker: No HX Cerebrovascular Accident: No Hx Seizures: Yes (r/t head trauma. Last episode 2016) Hx Dementia: No Hx Diabetes: No Hx Gastrointestinal Disorders: No Hx Liver Disease: Yes (hep c ab positive; Started treatment, but did not complete. ) Hx Genitourinary Disorders: No Hx Sexually Transmitted Disorders: No Hx Renal Disease (ESRD): No Hx Thyroid Disease: No Hx Human Immunodeficiency Virus (HIV): No (Negative 2016) Hx Hepatitis C: Yes (Started Treatment, but did not complete.) Hx Depression: No (On meds.) Hx Suicide Attempt: No (REPORTS SUICIDE ATTEMPT IN 2016. PATIENT DENIES CURRENT SI / HI.) Hx Bipolar Disorder: Yes Hx Schizophrenia: No - Patient Surgical History Past Surgical History: Yes Hx Neurologic Surgery: No Hx Cataract Extraction: No Hx Cardiac Surgery: No Hx Lung Surgery: No Hx Breast Surgery: No Hx Breast Biopsy: No Hx Abdominal Surgery: No Hx Appendectomy: No Hx Cholecystectomy: No Hx Genitourinary Surgery: No Hx Section: Yes ( 1974) Hx Orthopedic Surgery: No Anesthesia Reaction: No (DIFFICULTY WAKING UP) - PPD History Previous Implant?: Yes Documented Results: Negative w/proof Implanted On Prior [facility] Admission?: Yes Date: 02/07/17 Results: 0mm PPD to be Administered?: Yes - Reproductive History Patient is a Female of Child Bearing Age (11 -55 yrs old): Yes Last Menstrual Period: 02/02/90 Patient : No - Smoking Cessation Smoking history: Current every day smoker Have you smoked in the past 12 months: Yes Aproximately how many cigarettes per day: 8 Cigars Per Day: 0 Hx Chewing Tobacco Use: No Initiated information on smoking cessation: Yes 'Breaking Loose' booklet given: 02/02/18 - Substance & Tx. History Hx Alcohol Use: Yes Hx Substance Use: Yes Substance Use Type: Alcohol, Opiates, Tranquilizers Hx Substance Use Treatment: Yes (09/2017 [facility]) - Substances Abused Alcohol-rum/vodka Route: Oral Frequency: Daily Amount used: 2 pts. Age of first use: 13 Date of Last Use: 02/01/18 Family Disease History - Family Disease History Family Disease History: Heart Disease: Father (), Other: Father, Mother (no contact), Brother ( hiv), Sister () Admission Physical Exam [facility] - Vital Signs Vital Signs: Vital Signs - 24 hr 02/02/18 11:49 Temperature 99.5 F Pulse Rate 85 Respiratory 20 Rate Blood Pressure 164/97 - Physical General Appearance: Yes: Appropriately Dressed, Mild Distress, Obese, Tremorous , Irritable, Sweating, Anxious HEENTM: Yes: Hearing grossly Normal, Normocephalic, Normal Voice Respiratory: Yes: Chest Non-Tender, Lungs Clear, Normal Breath Sounds, No Respiratory Distress, No Accessory Muscle Use Neck: Yes: Supple, Trachea in good position Breast: Yes: Breasts Symetrical, No Discharge Cardiology: Yes: Regular Rhythm, Regular Rate, S1, S2 Abdominal: Yes: Non Tender, Flat, Increased Bowel Sounds Genitourinary: Yes: Within Normal Limits Back: Yes: Normal Inspection Musculoskeletal: Yes: full range of Motion, Gait Steady, Back pain, Muscle Pain Extremities: Yes: Normal Inspection, Normal Range of Motion, Non-Tender, Tremors Neurological: Yes: Fully Oriented, Alert, Motor Strength 5/5, Normal Response, Depressed Affect Integumentary: Yes: Warm Lymphatic: Yes: Within Normal Limits - Diagnostic (1) Hepatitis C Current Visit: Yes Status: Resolved Qualifiers: Viral hepatitis chronicity: unspecified Hepatic coma status: without hepatic coma Qualified Code(s): B19.20 - Unspecified viral hepatitis C without hepatic coma (2) Bipolar I disorder Current Visit: Yes Status: Suspected (3) GERD (gastroesophageal reflux disease) Current Visit: Yes Status: Chronic Qualifiers: Esophagitis presence: without esophagitis Qualified Code(s): K21.9 - Gastro -esophageal reflux disease without esophagitis (4) Seizure Current Visit: Yes Status: Chronic Comment: treated with gabapentin (5) Alcohol dependence with uncomplicated withdrawal Current Visit: Yes Status: Acute (6) Hypertension Current Visit: Yes Status: Chronic Qualifiers: Hypertension type: essential hypertension Qualified Code(s): I10 - Essential (primary) hypertension (7) Nicotine dependence Current Visit: Yes Status: Acute Qualifiers: Nicotine product type: cigarettes Substance use status: in withdrawal Qualified Code(s): F17.213 - Nicotine dependence, cigarettes, with withdrawal Cleared for Admission [facility] - Detox or Rehab [facility] Level of Care: Medically Managed Detox Regimen/Protocol: Methadone/Librium [facility] Breath Alcohol Content Breath Alcohol Content: 0 Urine Pregancy Test - Result Urine Test Results: Negative- NO Line Present Urine Drug Screen - Control Is Test Valid: Yes - Results Drug Screen Negative: No Urine Drug Screen Results: OPI-Opiates, BZO-Benzodiazepines, MTD-Methadone
[2018-02-02] MEDS ORDERED: NICOTINE POLACRILEX 2 MG GUM BUC PRN (13:39)
[2018-02-02] MEDS ORDERED: MENTHOL/PHENOL 1 EACH UD MM PRN (13:39)
[2018-02-02] MEDS ORDERED: chlordiazePOXIDE HCL 25 MG CAPSULE PO PRN (13:39)
[2018-02-02] MEDS ORDERED: ACETAMINOPHEN 325 MG TABLET (FP) PO PRN (13:39)
[2018-02-02] MEDS ORDERED: MAGNESIUM CITRATE 300 ML BOTTLE PO PRN (13:39)
[2018-02-02] MEDS ORDERED: P-EPHED 60MG/TRIPROLIDI 2.5MG TABLET PO PRN (13:39)
[2018-02-02] MEDS ORDERED: MAGNESIUM HYDROX 2400MG/30ML ORAL SUSPENSION 30 ML CUP PO PRN (13:39)
[2018-02-02] MEDS ORDERED: guaiFENesin/D-METHORPHAN HB 10 ML UNIT-DOSE CUPS PO PRN (13:39)
[2018-02-02] MEDS ORDERED: LOPERAMIDE HCL 2 MG CAPSULE PO PRN (13:39)
[2018-02-02] MEDS ORDERED: MAG HYDROX/AL HYDROX/SIMETH 30 ML UNIT-DOSE CUP PO PRN (13:39)
[2018-02-02] MEDS ORDERED: METHADONE HCL 10 MG TABLET (FOR DETOX USE ONLY) PO ONE ×2 (14:30→23:00)
[2018-02-02] MEDS: amLODIPine BESYLATE 10 MG TABLET (FP) PO SCH (15:32)
[2018-02-02] MEDS: SERTRALINE HCL 50 MG TABLET (FP) PO SCH (15:32)
[2018-02-02] MEDS: PANTOPRAZOLE 40 MG TABLET (FP) PO SCH (15:32)
[2018-02-02] MEDS: GABAPENTIN 300 MG CAPSULE (FP) PO SCH ×2 (15:32→22:12)
[2018-02-02] MEDS: NICOTINE 14 MG/24 HOURS TOPICAL PATCH TD SCH (15:34)
[2018-02-02] MEDS: chlordiazePOXIDE HCL 25 MG CAPSULE PO SCH ×2 (16:49→22:11)
[2018-02-02 18:02] LABS: URINE APPEARANCE CLEAR; URINE BILIRUBIN NEGATIVE (<2.0 mg/dL); URINE BLOOD NEGATIVE (NEGATIVE); URINE COLOR YELLOW; URINE GLUCOSE (UA) NEGATIVE (NEGATIVE); URINE KETONE NEGATIVE (NEGATIVE); URINE LEUK ESTERASE NEGATIVE (NEGATIVE); URINE NITRITE NEGATIVE (NEGATIVE); URINE PROTEIN NEGATIVE (NEGATIVE); URINE UROBILINOGEN NEGATIVE mg/dL (0.2-1.0)
[2018-02-02] MEDS ORDERED: MELATONIN 5 MG TABLETS PO PRN (22:00)
[2018-02-02] MEDS ORDERED: QUEtiapine FUMARATE 100 MG TABLET (FP) PO SCH (22:00)
[2018-02-02] MEDS ORDERED: THIAMINE HCL 100 MG TABLET (FP) PO SCH (22:00)
[2018-02-02] MEDS ORDERED: ZOLPIDEM TARTRATE 10 MG TABLET (PARK CARE ONLY) PO PRN (22:00)
[2018-02-03] MEDS: chlordiazePOXIDE HCL 25 MG CAPSULE PO SCH ×2 (08:15→11:20)
[2018-02-03] MEDS: GABAPENTIN 300 MG CAPSULE (FP) PO SCH ×2 (08:16→14:23)
--- NOTE | 2018-02-03 09:07 | PN ---
[facility] Progress Note Note: patient has alter mental status, bp 134/86,r20,p80 wheezing pupil constrict pulse ox 83% narcan 0.4 mg sq now o2 by nasal canula 4 l/min duoneb nebulizer treatment bgm is 104 repeat pulse ox 96% narcan 0.8 mg sq patient responded stated she feel cold patient to be transported to [facility] for evaluation by [facility] case endorsed to dr Donaldson
[2018-02-03] MEDS ORDERED: ALBUTEROL SO4 2.5/IPRATROPIUM 0.5 INH SOL 3 ML VIAL.NEB. NEB ONE (09:15)
[2018-02-03] MEDS ORDERED: NALOXONE HCL 0.4 MG/ML VIAL IM ONE ×2 (09:15→09:30)
[2018-02-03] MEDS ORDERED: METHADONE HCL 10 MG TABLET (FOR DETOX USE ONLY) PO SCH (10:00)
[2018-02-03] MEDS ORDERED: PRENATAL VITAMINS W/ FOLIC ACID TABLET (FP) PO SCH (10:00)
[2018-02-03 10:26] LABS: HEMATOCRIT 32.9 % (32.4-45.2); HEMOGLOBIN 11.2 GM/dL (10.7-15.3); MCH 29.2 pg (25.7-33.7); MCHC 33.9 g/dl (32.0-36.0); MEAN PLT VOLUME 9.6 fl (7.5-11.1); PLATELET COUNT 214 K/MM3 (134-434); RBC 3.83 M/mm3 (3.60-5.2); RDW 15.9 % (11.6-15.6); WHITE BLOOD COUNT 9.1 K/mm3 (4.0-10.0)
[2018-02-03 10:41] LABS: CHLORIDE 101 mmol/L (98-107); SODIUM 134 mmol/L (136-145)
--- NOTE | 2018-02-03 10:49 | EKG ---
Test Reason : Blood Pressure : / mmHG Vent. Rate : 068 BPM Atrial Rate : 068 BPM P-R Int : 174 ms QRS Dur : 100 ms QT Int : 402 ms P-R-T Axes : 061 040 049 degrees QTc Int : 427 ms NORMAL SINUS RHYTHM NON-SPECIFIC INTRA-VENTRICULAR CONDUCTION DELAY WHEN COMPARED WITH ECG OF 06-OCT-2017 08:59, NON-SPECIFIC CHANGE IN ST SEGMENT IN INFERIOR LEADS Confirmed by ARTURO LANE, ANDREA ([id number]) on 02/03/2018 10:49:11 AM Referred By: Confirmed By:ANDREA MORRIS MD
[2018-02-03 11:07] LABS: ALBUMIN 4.1 g/dl (3.4-5.0); ALK PHOS 100 U/L (45-117); ANION GAP 10 (8-16); BILIRUBIN,TOTAL 0.5 mg/dL (0.2-1.0); BLOOD UREA NITROGEN 7 mg/dL (7-18); CALCIUM 9.7 mg/dL (8.5-10.1); CO2 23 mmol/L (21-32); CREATININE 0.7 mg/dL (0.55-1.02); GLUCOSE,RANDOM 119 mg/dL (74-106); SGPT/ALT 28 U/L (12-78); TOT PROT 8.5 g/dl (6.4-8.2)
[2018-02-03 11:09] LABS: POTASSIUM 4.1 mmol/L (3.5-5.1); SGOT/AST 33 U/L (15-37)
[2018-02-03] MEDS: PANTOPRAZOLE 40 MG TABLET (FP) PO SCH (11:19)
[2018-02-03] MEDS: NICOTINE 14 MG/24 HOURS TOPICAL PATCH TD SCH (11:19)
[2018-02-03] MEDS: amLODIPine BESYLATE 10 MG TABLET (FP) PO SCH (11:19)
[2018-02-03] MEDS: SERTRALINE HCL 50 MG TABLET (FP) PO SCH (11:20)
[2018-02-03 11:51] VITALS: BP 134/86; PULSE 80; TEMP 96.3
[2018-02-03] MEDS ORDERED: chlordiazePOXIDE HCL 25 MG CAPSULE PO SCH (17:00)
[2018-02-04] MEDS ORDERED: METHADONE HCL 5 MG TABLET (FOR DETOX USE ONLY) PO SCH (10:00)
[2018-02-04] MEDS ORDERED: chlordiazePOXIDE 5 MG CAPSULE PO SCH (17:00)
[2018-02-05] MEDS ORDERED: chlordiazePOXIDE HCL 10 MG CAPSULE PO SCH (17:00)
[2018-02-06] MEDS ORDERED: METHADONE HCL 10 MG TABLET (FOR DETOX USE ONLY) PO SCH (10:00)
[2018-02-07] MEDS ORDERED: METHADONE HCL 5 MG TABLET (FOR DETOX USE ONLY) PO SCH (06:00)
== END 2018-02-03 13:05 | disposition short-term general hospital (02) | DRG 897 ==
LOC: YASAS 10:18 → Y6N 14:19
PROVIDERS: ADMIT Surgery; ATTEND Surgery
PROC: HZ2ZZZZ Detoxification Services for Substance Abuse Treatment (ICD-10-PCS; principal; 2018-02-02)
DX: F19.230 Other psychoactive substance dependence with withdrawal, uncomplicated (principal); F31.89 Other bipolar disorder; G40.89 Other seizures; F10.230 Alcohol dependence with withdrawal, uncomplicated; F17.210 Nicotine dependence, cigarettes, uncomplicated; F19.24 Other psychoactive substance dependence with psychoactive substance-induced mood disorder; F63.9 Impulse disorder, unspecified; I10 Essential (primary) hypertension; K21.9 Gastro-esophageal reflux disease without esophagitis; B18.2 Chronic viral hepatitis C; R41.82 Altered mental status, unspecified; E66.9 Obesity, unspecified; Z68.30 Body mass index [BMI] 30.0-30.9, adult; Z91.5 Personal history of self-harm
CPT/HCPCS: 36415; 80053; 80164; 81003; 82962; 85027; 86593; 93005; 93010; 94640; J7620

== ENCOUNTER 2018-02-04 19:53 | Inpatient (IN) | payer OTHER ==
--- NOTE | 2018-02-04 20:26 | HP ---
COWS - Scale Resting Pulse: 0= [place] 80 or Below Sweatin=Flushed/Facial Moisture Restless Observation: 1= Difficult to Sit Still Pupil Size: 1= Pupils >than Normal Bone or Joint Aches: 2= Severe Diffuse Aches Runny Nose/ Eye Tearin= Runny Nose/Eyes GI Upset > 30mins: 2= Nausea/Diarrhea Tremor Observation: 4= Gross Tremor/Twitching Yawning Observation: 0= None Anxiety or Irritability: 2=Irritable/Anxious Goose Flesh Skin: 0=Smooth Skin COWS Score: 16 CIWA Score - CIWA Score Nausea/Vomitin Muscle Tremors: 5 Anxiety: 3 Agitation: 4-Moderately Restless Paroxysmal Sweats: 3 Orientation: 0-Oriented Tacttile Disturbances: 2-Mild Itch/Numbness/Burn Auditory Disturbances: 2-Mild Harshness/Frighten Visual Disturbances: 2-Mild Sensitivity Headache: 2-Mild CIWA-Ar Total Score: 26 Admission ROS [facility] - HPI Chief Complaint: DEPENDENT ON ETOH, HEROIN AND STREET METHADONE Allergies/Adverse Reactions: Allergies Allergy/AdvReac Type Severity Reaction Status Date / Time No Known Allergies Allergy Verified 02/04/18 20:30 History of Present Illness: THE PT. WAS SENT FROM [facility] FOR ADMISSION TO THE DETOX UNIT Exam Limitations: No Limitations - Ebola screening Have you traveled outside of the country in the last 21 days: No (N) Have you had contact with anyone from an Ebola affected area: No Do you have a fever: No - Review of Systems Constitutional: See HPI, Malaise, Weakness EENT: reports: See HPI Respiratory: reports: See HPI Cardiac: reports: See HPI GI: reports: See HPI, Nausea, Vomiting, Abdominal cramping : reports: No Symptoms Reported, See HPI Musculoskeletal: reports: See HPI, Muscle Pain, Muscle Weakness Integumentary: reports: See HPI, Sweating Neuro: reports: See HPI, Headache, Tremors, Weakness Endocrine: reports: See HPI Hematology: reports: See HPI Psychiatric: reports: Judgement Intact, Orientated x3, Anxious, Depressed Patient History - Patient Medical History Hx Anemia: No Hx Asthma: No Hx Chronic Obstructive Pulmonary Disease (COPD): No Hx Cancer: No Hx Cardiac Disorders: No Hx Congestive Heart Failure: No Hx Hypertension: Yes Hx Hypercholesterolemia: No Hx Pacemaker: No HX Cerebrovascular Accident: No Hx Seizures: Yes (r/t head trauma. Last episode 2016) Hx Dementia: No Hx Diabetes: No Hx Gastrointestinal Disorders: No Hx Liver Disease: Yes (hep c ab positive; Started treatment, but did not complete. ) Hx Genitourinary Disorders: No Hx Sexually Transmitted Disorders: No Hx Renal Disease (ESRD): No Hx Thyroid Disease: No Hx Human Immunodeficiency Virus (HIV): No (Negative 2016) Hx Hepatitis C: Yes (Started Treatment, but did not complete.) Hx Suicide Attempt: No (REPORTS SUICIDE ATTEMPT IN 2016. PATIENT DENIES CURRENT SI / HI.) Hx Bipolar Disorder: Yes Hx Schizophrenia: No Other Medical History: ANXIETY DISORDER - Patient Surgical History Past Surgical History: Yes Hx Neurologic Surgery: No Hx Cataract Extraction: No Hx Cardiac Surgery: No Hx Lung Surgery: No Hx Breast Surgery: No Hx Breast Biopsy: No Hx Abdominal Surgery: No Hx Appendectomy: No Hx Cholecystectomy: No Hx Genitourinary Surgery: No Hx Section: Yes ( 1974) Hx Orthopedic Surgery: No Anesthesia Reaction: No (DIFFICULTY WAKING UP) - PPD History Date: 02/04/18 Results: 0mm - Reproductive History Patient is a Female of Child Bearing Age (11 -55 yrs old): No Last Menstrual Period: 02/02/90 Patient : No - Smoking Cessation Smoking history: Current every day smoker Have you smoked in the past 12 months: Yes Aproximately how many cigarettes per day: 8 Cigars Per Day: 0 Hx Chewing Tobacco Use: No Initiated information on smoking cessation: Yes 'Breaking Loose' booklet given: 02/04/18 - Substance & Tx. History Hx Alcohol Use: Yes Hx Substance Use: Yes Substance Use Type: Alcohol, Heroin Hx Substance Use Treatment: Yes - Substances Abused Alcohol Route: Oral Frequency: Daily Amount used: LIQUOR 2 P/D Age of first use: 13 Date of Last Use: 02/03/18 Heroin Route: Inhalation Frequency: Daily Amount used: 2-3 B/D Age of first use: 15 Date of Last Use: 02/03/18 Non-Rx Methadone Route: Oral Frequency: 3-6 times per week Amount used: 40-60MGS./D Age of first use: 15 Date of Last Use: 02/04/18 Family Disease History - Family Disease History Family Disease History: Heart Disease: Father (), Other: Father, Mother (no contact), Brother ( hiv; ADDICTED TO DRUGS), Sister (; ADDICTED TO DRUGS) Admission Physical Exam [facility] - Physical General Appearance: Yes: No Apparent Distress, Nourished, Appropriately Dressed , Tremorous, Irritable, Sweating, Anxious HEENTM: Yes: Hearing grossly Normal, Normocephalic, Normal Voice, DON, Pharynx Normal Respiratory: Yes: Chest Non-Tender, Lungs Clear, Normal Breath Sounds, No Respiratory Distress, No Accessory Muscle Use Neck: Yes: No masses,lesions,Nodules, Supple, Trachea in good position Breast: Yes: Breast Exam Deferred, Axillae without masses Cardiology: Yes: Regular Rhythm, Regular Rate, S1, S2 Abdominal: Yes: Normal Bowel Sounds, Soft, Protuberent, Hepatomegaly Back: Yes: Normal Inspection Musculoskeletal: Yes: full range of Motion, Pelvis Stable, Muscle Pain, Muscle weakness Extremities: Yes: Normal Capillary Refill, Normal Range of Motion, Non-Tender, Tremors, Pedal Edema Neurological: Yes: manager of security II-XII NML intact, Fully Oriented, Alert, Motor Strength 5/5, Normal Response, Depressed Affect Integumentary: Yes: Warm, Moist Lymphatic: Yes: Within Normal Limits - Diagnostic (1) Methadone misuse Current Visit: Yes Status: Acute (2) Alcohol dependence with uncomplicated withdrawal Current Visit: Yes Status: Acute (3) Heroin dependence Current Visit: Yes Status: Acute (4) Nicotine dependence Current Visit: Yes Status: Acute Qualifiers: Nicotine product type: cigarettes Substance use status: uncomplicated Qualified Code(s): F17.210 - Nicotine dependence, cigarettes, uncomplicated (5) History of seizures Current Visit: No Status: Resolved Comment: Due to Traumatic Head Injury. (6) Hypertension Current Visit: Yes Status: Chronic Qualifiers: Hypertension type: essential hypertension Qualified Code(s): I10 - Essential (primary) hypertension (7) Bipolar I disorder Current Visit: Yes Status: Chronic (8) Hepatitis C Current Visit: No Status: Chronic Qualifiers: Viral hepatitis chronicity: unspecified Hepatic coma status: without hepatic coma Qualified Code(s): B19.20 - Unspecified viral hepatitis C without hepatic coma (9) Anxiety disorder Current Visit: Yes Status: Acute Qualifiers: Anxiety disorder type: generalized anxiety disorder Qualified Code(s): F41.1 - Generalized anxiety disorder Cleared for Admission [facility] - Detox or Rehab [facility] Level of Care: Medically Managed Detox Regimen/Protocol: Methadone/Librium S Breath Alcohol Content Breath Alcohol Content: 0
[2018-02-04] MEDS ORDERED: LOPERAMIDE HCL 2 MG CAPSULE PO PRN (20:38)
[2018-02-04] MEDS ORDERED: MAG HYDROX/AL HYDROX/SIMETH 30 ML UNIT-DOSE CUP PO PRN (20:38)
[2018-02-04] MEDS ORDERED: P-EPHED 60MG/TRIPROLIDI 2.5MG TABLET PO PRN (20:38)
[2018-02-04] MEDS ORDERED: IBUPROFEN 400 MG TABLET (FP) PO PRN (20:38)
[2018-02-04] MEDS ORDERED: MAGNESIUM HYDROX 2400MG/30ML ORAL SUSPENSION 30 ML CUP PO PRN (20:38)
[2018-02-04] MEDS ORDERED: guaiFENesin/D-METHORPHAN HB 10 ML UNIT-DOSE CUPS PO PRN (20:38)
[2018-02-04] MEDS ORDERED: MAGNESIUM CITRATE 300 ML BOTTLE PO PRN (20:38)
[2018-02-04] MEDS ORDERED: NICOTINE POLACRILEX 2 MG GUM BC PRN (20:38)
[2018-02-04] MEDS ORDERED: MENTHOL/PHENOL 1 EACH UD MM PRN (20:38)
[2018-02-04] MEDS ORDERED: hydrOXYzine PAMOATE 25 MG CAPSULE (FP) PO PRN (20:38)
[2018-02-04] MEDS ORDERED: chlordiazePOXIDE HCL 25 MG CAPSULE PO PRN (20:49)
[2018-02-04 20:51] VITALS: BMI 31.2
[2018-02-04] MEDS ORDERED: chlordiazePOXIDE HCL 25 MG CAPSULE PO ONE (21:00)
[2018-02-04] MEDS ORDERED: MELATONIN 5 MG TABLETS PO PRN (22:00)
[2018-02-04] MEDS: GABAPENTIN 300 MG CAPSULE (FP) PO SCH (22:08)
[2018-02-04] MEDS: DIVALPROEX SODIUM 500 MG TABLET E.C. PO SCH (22:08)
[2018-02-04] MEDS: THIAMINE HCL 100 MG TABLET (FP) PO SCH (22:10)
[2018-02-04] MEDS: chlordiazePOXIDE HCL 25 MG CAPSULE PO SCH ×2 (22:10→23:30)
[2018-02-04] MEDS ORDERED: METHADONE HCL 10 MG TABLET (FOR DETOX USE ONLY) PO ONE (23:00)
[2018-02-05] MEDS: ACETAMINOPHEN 325 MG TABLET (FP) PO PRN ×2 (02:39→13:03)
[2018-02-05] MEDS: GABAPENTIN 300 MG CAPSULE (FP) PO SCH ×3 (05:33→22:28)
[2018-02-05] MEDS: chlordiazePOXIDE HCL 25 MG CAPSULE PO SCH ×4 (05:33→22:56)
[2018-02-05] MEDS ORDERED: METHADONE HCL 10 MG TABLET (FOR DETOX USE ONLY) PO SCH (10:00)
[2018-02-05 10:15] LABS: URINE APPEARANCE CLEAR; URINE BILIRUBIN NEGATIVE (<2.0 mg/dL); URINE COLOR YELLOW; URINE GLUCOSE (UA) NEGATIVE (NEGATIVE); URINE KETONE NEGATIVE (NEGATIVE); URINE LEUK ESTERASE NEGATIVE (NEGATIVE); URINE NITRITE NEGATIVE (NEGATIVE); URINE PROTEIN NEGATIVE (NEGATIVE)
[2018-02-05] MEDS: PRENATAL VITAMINS W/ FOLIC ACID TABLET (FP) PO SCH (10:19)
[2018-02-05] MEDS: DIVALPROEX SODIUM 500 MG TABLET E.C. PO SCH ×2 (10:19→22:28)
[2018-02-05] MEDS: PANTOPRAZOLE 40 MG TABLET (FP) PO SCH (10:19)
[2018-02-05] MEDS: amLODIPine BESYLATE 10 MG TABLET (FP) PO SCH (10:19)
[2018-02-05] MEDS: NICOTINE 14 MG/24 HOURS TOPICAL PATCH TD SCH (10:20)
--- NOTE | 2018-02-05 12:01 | PN ---
[facility] CIWA - CIWA Score Nausea/Vomitin-Mild Nausea/No Vomiting Muscle Tremors: 4-Moderate,w/Arms Extend Anxiety: 4-Mod. Anxious/Guarded Agitation: 4-Moderately Restless Paroxysmal Sweats: 1-Minimal Palms Moist Orientation: 1-Uncertain about Date Tacttile Disturbances: 2-Mild Itch/Numbness/Burn Auditory Disturbances: 0-None Visual Disturbances: 0-None Headache: 1-Very Mild CIWA-Ar Total Score: 18 BHS COWS - Scale Resting Pulse: 1= [place] 81-100 Sweatin= Chills/Flushing Restless Observation: 1= Difficult to Sit Still Pupil Size: 0= Normal to Room Light Bone or Joint Aches: 2= Severe Diffuse Aches Runny Nose/ Eye Tearin= Runny Nose/Eyes GI Upset > 30mins: 2= Nausea/Diarrhea Tremor Observation of Outstretched Hands: 2= Slight Tremor Visible Yawning Observation: 1= 1-2x During Session Anxiety or Irritability: 2=Irritable/Anxious Goose Flesh Skin: 0=Smooth Skin COWS Score: 14 S Progress Note (SOAP) Subjective: joint pain body ache sweat tremor irritable trouble sleep at night restlessness Objective: 02/05/18 12:00 Vital Signs Temperature 98.0 F 02/05/18 10:00 Pulse Rate 79 02/05/18 10:00 Respiratory Rate 18 02/05/18 10:00 Blood Pressure 152/92 02/05/18 10:00 O2 Sat by Pulse Oximetry (%) Laboratory Last Values Urine Color Yellow 02/05/18 09:00 Urine Appearance Clear 02/05/18 09:00 Urine pH 7.0 (5.0-8.0) 02/05/18 09:00 Ur Specific [place] 1.019 (1.001-1.035) 02/05/18 09:00 Urine Protein Negative (NEGATIVE) 02/05/18 09:00 Urine Glucose (UA) Negative (NEGATIVE) 02/05/18 09:00 Urine Ketones Negative (NEGATIVE) 02/05/18 09:00 Urine Blood Negative (NEGATIVE) 02/05/18 09:00 Urine Nitrite Negative (NEGATIVE) 02/05/18 09:00 Urine Bilirubin Negative (<2.0 mg/dL) 02/05/18 09:00 Urine Urobilinogen 2.0 mg/dL (0.2-1.0) H 02/05/18 09:00 Ur Leukocyte Esterase Negative (NEGATIVE) 02/05/18 09:00 lab noted Assessment: 02/05/18 12:00 withdrawal sx Plan: continue detox
[2018-02-05] MEDS: THIAMINE HCL 100 MG TABLET (FP) PO SCH (22:28)
--- NOTE | 2018-02-06 00:15 | PN ---
[facility] Progress Note Note: I was endorsed by Dr. Yusuf about patient who returned from ER and has been confused and lethargic. I went to the floor twice to see patient but she was sleeping. At about 11.45PM I was called by nurse, Ms. Rosalee Shanks to evaluate patient . Her condition remains unchanged, she remains confused and tries to get up intermittently with unsteady gait. ER suspected opiate/Benzo overdose but did not reveal any underlying medical cause of the acute episode. Patient is at a very high risk for a fall Vital Signs Temperature 97.7 F 02/05/18 21:56 Pulse Rate 99 H 02/05/18 21:56 Respiratory Rate 21 02/05/18 21:56 Blood Pressure 120/60 02/05/18 21:56 O2 Sat by Pulse Oximetry (%) Action: Ammonia level to be drawn at 0600 1:1 constant observation for safety ordered
[2018-02-06] MEDS: GABAPENTIN 300 MG CAPSULE (FP) PO SCH ×2 (06:45→13:46)
[2018-02-06] MEDS: chlordiazePOXIDE HCL 25 MG CAPSULE PO SCH ×2 (06:46→12:36)
--- NOTE | 2018-02-06 08:01 | PN ---
Psychiatric Progress Note Vital Signs: Vital Signs Period Temp Pulse Resp BP Sys/Turner Pulse Ox Last 24 Hr 97.7 F-98.4 F 73-100 18-21 109-152/60-92 Date of Session: 02/06/18 Chief Complaint:: Overaedared HPI: PER NURSING REPORTS PTIENT OVERSEDATEFMIKHAIL 1:1 OBSERVATION FOR FALLING PRECAUSIONS. Current Medications: Active Medications Generic Name Dose Route Start Last Admin Trade Name Freq PRN Reason Stop Dose Admin Acetaminophen 650 mg 02/04/18 20:38 02/05/18 13:03 Tylenol - PO 650 mg Q4H PRN Administration FEVER Al Hydroxide/Mg Hydroxide 30 ml 02/04/18 20:38 Mylanta Oral Suspension - PO Q6H PRN DYSPEPSIA Amlodipine Besylate 10 mg 02/05/18 10:00 02/05/18 10:19 Norvasc - PO 10 mg DAILY ROULA Administration Chlordiazepoxide HCl 25 mg 02/05/18 17:00 02/06/18 06:46 Librium - PO 02/06/18 11:01 25 mg [id number] ROULA Administration Chlordiazepoxide HCl 15 mg 02/06/18 17:00 Librium - PO 02/07/18 11:01 [id number] ROULA Chlordiazepoxide HCl 10 mg 02/07/18 17:00 Librium - PO 02/08/18 11:01 [id number] ROULA Chlordiazepoxide HCl 25 mg 02/04/18 20:49 Librium - PO 02/07/18 20:51 Q4H PRN WITHDRAWAL(CONT SUBST) Divalproex Sodium 500 mg 02/04/18 22:00 02/05/18 22:28 Depakote - PO 500 mg BID ROULA Administration Eucalyptus/Menthol/Phenol/Sorbitol 1 each 02/04/18 20:38 Cepastat Lozenge - MM Q4H PRN SORE THROAT Gabapentin 300 mg 02/04/18 22:00 02/06/18 06:45 Neurontin - PO 300 mg TID ROULA Administration Guaifenesin 10 ml 02/04/18 20:38 Robitussin Dm - PO Q6H PRN COUGH Hydroxyzine Pamoate 25 mg 02/04/18 20:38 02/05/18 01:38 Vistaril - PO 25 mg Q4H PRN Administration ANXIETY Ibuprofen 400 mg 02/04/18 20:38 Motrin - PO Q6H PRN PAIN LEVEL 4-6 Loperamide HCl 4 mg 02/04/18 20:38 Imodium - PO Q6H PRN DIARRHEA Magnesium Citrate 300 ml 02/04/18 20:38 Citroma - PO Q48H PRN CONSTIPATION Magnesium Hydroxide 30 ml 02/04/18 20:38 Milk Of Magnesia - PO DAILY PRN CONSTIPATION Melatonin 5 mg 02/04/18 22:00 Melatonin PO HS PRN INSOMNIA Methadone HCl 15 mg 02/06/18 10:00 Dolophine - PO 02/07/18 10:01 DAILY ROULA Methadone HCl 5 mg 02/09/18 06:00 Dolophine - PO 02/09/18 06:01 DAILY@0600 ROULA Methadone HCl 10 mg 02/08/18 10:00 Dolophine - PO 02/08/18 10:01 DAILY ROULA Nicotine 14 mg 02/05/18 10:00 02/05/18 10:20 Nicoderm Patch - TD Not Given DAILY ROULA Nicotine Polacrilex 2 mg 02/04/18 20:38 Nicorette Gum - BC Q2H PRN NICOTINE REPLACEMENT RX Pantoprazole Sodium 40 mg 02/05/18 10:00 02/05/18 10:19 Protonix - PO 40 mg DAILY ROULA Administration Multivit/Folic Acid/Iron 1 tab 02/05/18 10:00 02/05/18 10:19 Vitamins (Sjr) - PO 1 tab DAILY ROULA Administration Pseudoephedrine/Triprolidine 1 combo 02/04/18 20:38 Actifed - PO TID PRN NASAL CONGESTION Thiamine HCl 100 mg 02/04/18 22:00 02/05/18 22:28 Vitamin B1 - PO 100 mg HS ROULA Administration Medication(s) Change(s): hOLD PSYCHIATRIC MEDICATIONS Provider note:: Patient is oversedated, not ready for evaluation Psychiatric Treatment Plan - Problem List (1) Alcohol dependence with uncomplicated withdrawal Current Visit: Yes (2) Anxiety disorder Current Visit: Yes Qualifiers: Anxiety disorder type: generalized anxiety disorder Qualified Code(s): F41.1 - Generalized anxiety disorder (3) Heroin dependence Current Visit: Yes (4) Methadone misuse Current Visit: Yes (5) Nicotine dependence Current Visit: Yes Qualifiers: Nicotine product type: cigarettes Substance use status: uncomplicated Qualified Code(s): F17.210 - Nicotine dependence, cigarettes, uncomplicated (6) Bipolar I disorder Current Visit: Yes (7) Alcohol dependence Current Visit: No (8) Altered mental status Current Visit: No (9) Drug-induced mood disorder Current Visit: No (10) Drug-induced mood disorder Current Visit: No (11) MDD (major depressive disorder) Current Visit: No (12) Substance induced mood disorder Current Visit: No Initial treatment plan: Observation. Detox Unit Care Protocol
[2018-02-06] MEDS ORDERED: LISINOPRIL 10 MG TABLET (FP) PO SCH (10:00)
[2018-02-06] MEDS ORDERED: METHADONE HCL 5 MG TABLET (FOR DETOX USE ONLY) PO SCH (10:00)
--- NOTE | 2018-02-06 10:03 | CONSULT ---
[facility] Psychiatric Consult - Data Date of interview: 02/06/18 Admission source: [facility] Identifying data: Patient has been evaluated on admission day: by policy writer. See admission notes. Psychiatric Findings - Problem List ([place] 1, 2,3) (1) Alcohol dependence with uncomplicated withdrawal Current Visit: Yes Status: Acute (2) Anxiety disorder Current Visit: Yes Status: Acute Qualifiers: Anxiety disorder type: generalized anxiety disorder Qualified Code(s): F41.1 - Generalized anxiety disorder (3) Heroin dependence Current Visit: Yes Status: Acute (4) Methadone misuse Current Visit: Yes Status: Acute (5) Nicotine dependence Current Visit: Yes Status: Acute Qualifiers: Nicotine product type: cigarettes Substance use status: uncomplicated Qualified Code(s): F17.210 - Nicotine dependence, cigarettes, uncomplicated (6) Bipolar I disorder Current Visit: Yes Status: Chronic (7) Alcohol dependence Current Visit: No Status: Acute (8) Altered mental status Current Visit: No Status: Acute (9) Drug-induced mood disorder Current Visit: No Status: Acute (10) Drug-induced mood disorder Current Visit: No Status: Acute (11) MDD (major depressive disorder) Current Visit: No Status: Acute (12) Substance induced mood disorder Current Visit: No Status: Acute
[2018-02-06 10:39] VITALS: BP 151/82; PULSE 88; TEMP 100.2
[2018-02-06] MEDS: DIVALPROEX SODIUM 500 MG TABLET E.C. PO SCH (12:35)
[2018-02-06] MEDS: PRENATAL VITAMINS W/ FOLIC ACID TABLET (FP) PO SCH (12:36)
[2018-02-06] MEDS: amLODIPine BESYLATE 10 MG TABLET (FP) PO SCH (12:36)
[2018-02-06] MEDS: PANTOPRAZOLE 40 MG TABLET (FP) PO SCH (12:36)
[2018-02-06] MEDS: NICOTINE 14 MG/24 HOURS TOPICAL PATCH TD SCH (12:36)
--- NOTE | 2018-02-06 13:03 | PN ---
S Progress Note Note: 67 years old female admitted on 02/04/18 for alcohol and opiate withdrawal sx unsteady gait 1:1 for safety difficulty to arousal only response to pain stimulation slurred speech brief eye opening unable to swallowing fluid required full assistance to toilet urine x 1 BM x 1 ambulance called at 1116 am and information provided to ER at 1118
[2018-02-06] MEDS ORDERED: NALOXONE HCL 1 MG/ML ML IM ONE (13:45)
[2018-02-06] MEDS: LACTULOSE 20 GM/30 ML UDC (FOR ORAL USE ONLY) PO SCH ×2 (13:46→17:19)
[2018-02-06] MEDS ORDERED: chlordiazePOXIDE 5 MG CAPSULE PO SCH (17:00)
[2018-02-07] MEDS ORDERED: chlordiazePOXIDE HCL 10 MG CAPSULE PO SCH (17:00)
[2018-02-08] MEDS ORDERED: METHADONE HCL 10 MG TABLET (FOR DETOX USE ONLY) PO SCH (10:00)
[2018-02-09] MEDS ORDERED: METHADONE HCL 5 MG TABLET (FOR DETOX USE ONLY) PO SCH (06:00)
== END 2018-02-06 23:14 | disposition short-term general hospital (02) | DRG 897 ==
LOC: YASAS 19:53 → Y6N 20:03
PROVIDERS: ADMIT Surgery; ATTEND Surgery
PROC: HZ2ZZZZ Detoxification Services for Substance Abuse Treatment (ICD-10-PCS; principal; 2018-02-04)
DX: F10.230 Alcohol dependence with withdrawal, uncomplicated (principal); F11.20 Opioid dependence, uncomplicated; F31.89 Other bipolar disorder; F33.9 Major depressive disorder, recurrent, unspecified; F17.210 Nicotine dependence, cigarettes, uncomplicated; F19.24 Other psychoactive substance dependence with psychoactive substance-induced mood disorder; F41.9 Anxiety disorder, unspecified; I10 Essential (primary) hypertension; B19.20 Unspecified viral hepatitis C without hepatic coma; R53.83 Other fatigue; R41.82 Altered mental status, unspecified; Z86.69 Personal history of other diseases of the nervous system and sense organs
CPT/HCPCS: 36415; 70450-TC; 71045-TC-FY; 80053; 80164; 80307; 81003; 82140; 82803; 83735; 83880; 84100; 84484; 85025; 85027; 93005; 93010; 99285-25; G0378; J1644; J7030

== ENCOUNTER 2018-02-06 12:04 | Inpatient (IN) | payer OTHER ==
[2018-02-06 13:09] LABS: BASO % 0.4 % (0-2.0); EOS % 1.3 % (0-4.5); HEMATOCRIT 33.6 % (32.4-45.2); HEMOGLOBIN 11.3 GM/dL (10.7-15.3); LYMPH % 16.4 % (8-40); MCH 28.9 pg (25.7-33.7); MCHC 33.7 g/dl (32.0-36.0); MEAN CELL VOLUME 85.8 fl (80-96); MEAN PLT VOLUME 8.5 fl (7.5-11.1); MONO % 6.8 % (3.8-10.2); NEUT % 75.1 % (42.8-82.8); PLATELET COUNT 194 K/MM3 (134-434); RBC 3.91 M/mm3 (3.60-5.2); RDW 16.3 % (11.6-15.6); WHITE BLOOD COUNT 8.4 K/mm3 (4.0-10.0)
--- NOTE | 2018-02-06 13:34 | PDOC ---
History of Present Illness - General Chief Complaint: Altered Mental Status Stated Complaint: Altered Mental Status Time Seen by Provider: 02/06/18 12:08 - History of Present Illness Initial Comments: 02/06/18 13:36 The patient is a 67 year old female with a history of opiate abuse, alcohol, nicotine dependence, HTN, GERD, bipolar d/o, seizures, and depression who presents from [facility] for evaluation of AMS. The patient was noted to be lethargic and minimally responsive earlier this morning. She was given 2mg of SQ narcan en rout to the ED with poor response and the patient has maintained stable vital signs throughout her AMS. She was recently seen in the ED and admitted to the hospital on 02/03/18 for a similar presentation. History is limited due to the patient's clinical status. She is admitted to [facility] detox on methadone treatment. Past History - Past Medical History Allergies/Adverse Reactions: Allergies Allergy/AdvReac Type Severity Reaction Status Date / Time No Known Allergies Allergy Verified 02/06/18 12:45 Home Medications: Ambulatory Orders Amlodipine Besylate [Norvasc -] 10 mg PO DAILY 10/06/17 Divalproex [Depakote -] 500 mg PO Q12H 02/02/18 Gabapentin [Neurontin -] 300 mg PO Q8H 02/02/18 Pantoprazole Sodium [Protonix -] 40 mg PO DAILY 02/02/18 Quetiapine Fumarate [Seroquel] 100 mg PO HS #30 tablet 02/02/18 Sertraline HCl [Zoloft -] 50 mg PO DAILY 02/03/18 Thiamine HCl [Vitamin B1 -] 100 mg PO HS tablet 02/04/18 Anemia: No Asthma: No Cancer: No Cardiac Disorders: No CVA: No COPD: No CHF: No Dementia: No Diabetes: No GI Disorders: No Disorders: No HTN: Yes Hypercholesterolemia: No Kidney Stones: No Liver Disease: Yes (hep c ab positive; Started treatment, but did not complete. ) Seizures: Yes (r/t head trauma. Last episode 2016) Thyroid Disease: No - Surgical History Abdominal Surgery: No Appendectomy: No Cardiac Surgery: No Cholecystectomy: No Lung Surgery: No Neurologic Surgery: No Orthopedic Surgery: No - Reproductive History PID: No - Suicide/Smoking/Psychosocial Hx Smoking History: Current every day smoker Have you smoked in the past 12 months: Yes Number of Cigarettes Smoked Daily: 8 Cigars Per Day: 0 Information on smoking cessation initiated: No 'Breaking Loose' booklet given: 02/04/18 Hx Alcohol Use: Yes Drug/Substance Use Hx: Yes Substance Use Type: Alcohol, Heroin Hx Substance Use Treatment: Yes Review of Systems - Review of Systems Able to Perform ROS?: No (AMS) *Physical Exam - Vital Signs Last Vital Signs Temp Pulse Resp BP Pulse Ox 99.8 F H 91 H 32 H 160/94 97 02/06/18 12:52 02/06/18 12:52 02/06/18 12:52 02/06/18 12:52 02/06/18 12:52 - Physical Exam Comments: 02/06/18 13:39 General Appearance: Nourished. In Moderate Apparent Distress HEENT: EOMI, Pinpoint pupils on exam minimally reactive. Sonorous Respirations. No Pharyngeal Erythema, Tonsillar Exudate, Tonsillar Erythema Neck: No Cervical Lymphadenopathy Respiratory/Chest: Lungs Clear, Normal Breath Sounds. No Crackles, Rales, Rhonchi, Wheezing Cardiovascular: Regular Rhythm, Regular Rate. No Murmur, Gallops, Rubs Gastrointestinal/Abdominal: Normal Bowel Sounds, Soft. No Guarding, Rebound, Tenderness Musculoskeletal: No CVA Tenderness Extremity: Normal Capillary Refill Integumentary: Normal Color, Dry, Warm Neurologic: Minimally responsive on exam, moving all four extremities equally. Heart Score/ECG Review #1 ECG reviewed & interpreted by me at: 13:41 General ECG Interpretation: Sinus Rhythm, Normal Rate, Normal Intervals, No acute ischemic changes ED Treatment Course - LABORATORY CBC & Chemistry Diagram: 02/06/18 12:45 02/06/18 12:45 - ADDITIONAL ORDERS Additional order review: 02/06/18 12:45 RBC 3.91 MCV 85.8 MCHC 33.7 RDW 16.3 H MPV 8.5 Neutrophils % 75.1 D Lymphocytes % 16.4 D Monocytes % 6.8 Eosinophils % 1.3 Basophils % 0.4 Medical Decision Making - Medical Decision Making 02/06/18 13:42 The patient is a 67 year old female with a history of opiate abuse, alcohol, nicotine dependence, HTN, GERD, bipolar d/o, seizures, and depression who presents from [facility] for evaluation of AMS. Differential includes but is not limited to: Post-ictal, Intoxication, Overdose, Intracranial Process, Infectious , Metabolic derangement. Given the patient's history and physical exam, we will obtain a cbc, cmp, alcohol level, acetominophen level, salycilate level, ua , urine tox, ekg, head ct to evaluate further for possible etiologies. We will continue to monitor and reassess while here in the ED. 02/06/18 23:33 CBC, cmp, ua, were unremarkable. urine tox was positive for benzodiazapines. head CT was unremarkable as read by our radiologist. The patient has continued to remain somulent and lethargic on exam and minimally responsive to verbal stimulus. The patient will require observation admission for AMS. We discussed the case with the admitting team who accepted the patient for admission. *DC/Admit/Observation/Transfer Diagnosis at time of Disposition: Altered mental status Qualifiers: Altered mental status type: unspecified Qualified Code(s): R41.82 - Altered mental status, unspecified - Discharge Dispostion Condition at time of disposition: Stable Decision to Admit order: Yes - Referrals - Patient Instructions - Post Discharge Activity
[2018-02-06 13:46] LABS: ALBUMIN 3.5 g/dl (3.4-5.0); ANION GAP 7 (8-16); BILIRUBIN,TOTAL 0.6 mg/dL (0.2-1.0); BLOOD UREA NITROGEN 8 mg/dL (7-18); CALCIUM 8.9 mg/dL (8.5-10.1); CHLORIDE 104 mmol/L (98-107); CO2 29 mmol/L (21-32); GLUCOSE,RANDOM 91 mg/dL (74-106); POTASSIUM 3.9 mmol/L (3.5-5.1); SGOT/AST 21 U/L (15-37); SODIUM 140 mmol/L (136-145); TOT PROT 8.1 g/dl (6.4-8.2)
[2018-02-06 13:54] LABS: ACETAMINOPHEN <2 ug/mL
[2018-02-06 13:55] LABS: SALICYLATE <1.70 mg/dL
[2018-02-06 13:58] LABS: ALK PHOS 86 U/L (45-117); CREATININE 0.7 mg/dL (0.55-1.02); SGPT/ALT 24 U/L (12-78)
[2018-02-06 14:16] LABS: URINE APPEARANCE CLEAR; URINE BILIRUBIN NEGATIVE (<2.0 mg/dL); URINE COLOR LTYELLOW; URINE GLUCOSE (UA) NEGATIVE (NEGATIVE); URINE KETONE NEGATIVE (NEGATIVE); URINE LEUK ESTERASE NEGATIVE (NEGATIVE); URINE NITRITE NEGATIVE (NEGATIVE); URINE PROTEIN NEGATIVE (NEGATIVE); URINE UROBILINOGEN NEGATIVE mg/dL (0.2-1.0)
--- NOTE | 2018-02-06 14:47 | PDOC ---
Attending Attestation - Resident Resident Name: Morris Eason - ED Attending Attestation I have performed the following: I have examined & evaluated the patient, The case was reviewed & discussed with the resident, I agree w/resident's findings & plan, Exceptions are as noted - HPI HPI: 02/06/18 14:39 67 F with h/o opiate abuse, alcohol, nicotine dependence, HTN, GERD, bipolar d/o , seizures, and depression, sent from [facility] rehab for altered mental status. Per EMS, pt was found to be lethargic and poorly responsive this AM. She was given narcan 2mg IM by EMS, with minimal change in mental status. Pt arrived to ED with sonorous breath sounds responsive to painful stimuli. Pt with stable vitals en route and protecting airway in ED. - Physicial Exam PE: 02/06/18 14:47 "GENERAL: Lethargic, no acute distress HEAD: No signs of trauma EYES: PERRLA, EOMI, sclera anicteric, conjunctiva clear ENT: Auricles normal inspection, hearing grossly normal, nares patent, oropharynx clear without exudates. Moist mucosa NECK: Nontender, no stepoffs, Normal ROM, supple, no lymphadenopathy, JVD, or masses LUNGS: rhonchorous breath sounds bilaterally HEART: Regular rate and rhythm, normal S1 and S2, no murmurs, rubs or gallops ABDOMEN: Soft, nontender, normoactive bowel sounds. No guarding, no rebound. No masses EXTREMITIES: Normal range of motion, no edema. No clubbing or cyanosis. No cords, erythema, or tenderness NEUROLOGICAL: Moves all extremities SKIN: Warm, Dry, normal turgor, no rashes or lesions noted. - Medical Decision Making 02/06/18 14:54 67 F with altered mental status from [facility]. Possible overdose. Pt somnolent and has h/o heroin abuse, suggesting opiate overdose. However, pt without typical respiratory depression of opiate abuse. Pt also with minimal response to narcan. Will evaluate for metabolic encephalopathy. Also consider post-ictal state, though course is much more prolonged than expected. - Labs - CT head - CXR 02/06/18 18:[address] negative Utox positive only for benzos. Pt reassessed - continues to be somnolent, not yet at baseline. Will admit to obs at this time.
[2018-02-06 15:33] LABS: COCAINE, UR NEGATIVE ng/ml (CUTOFF=300); METHADONE, UR NEGATIVE ng/ml (CUTOFF=300); OPIATES, URI NEGATIVE ng/ml (CUTOFF=300); PHENCYCLIDINE,URINE NEGATIVE ng/ml (CUTOFF=25); URINE AMPHETAMINES NEGATIVE ng/ml (CUTOFF=500); URINE BARBITURATES NEGATIVE ng/ml (CUTOFF=200)
[2018-02-06 15:34] LABS: URINE BENZODIAZEPINES POSITIVE ng/ml (CUTOFF=200)
--- NOTE | 2018-02-06 16:22 | EKG ---
Test Reason : Blood Pressure : / mmHG Vent. Rate : 093 BPM Atrial Rate : 093 BPM P-R Int : 164 ms QRS Dur : 088 ms QT Int : 346 ms P-R-T Axes : 000 027 020 degrees QTc Int : 430 ms NORMAL SINUS RHYTHM SEPTAL INFARCT , AGE UNDETERMINED ABNORMAL ECG WHEN COMPARED WITH ECG OF 03-FEB-2018 09:43, NO SIGNIFICANT CHANGE WAS FOUND Confirmed by NATALIIA FELDMAN MD ([id number]) on 02/06/2018 4:22:28 PM Referred By: Confirmed By:NATALIIA FELDMAN MD
--- NOTE | 2018-02-06 21:11 | HP ---
Admitting History and Physical - Primary Care Physician PCP: Jeremie Canas - Admission History of Present Illness: 67 year old female with a history of opiate abuse, alcohol, nicotine dependence , HTN, GERD, bipolar d/o, seizures, and depression who presents from [facility] for evaluation of AMS. The patient was noted to be lethargic and minimally responsive earlier this morning. She was given 2mg of SQ narcan en rout to the ED with poor response and the patient has maintained stable vital signs throughout her AMS. She was recently seen in the ED and admitted to the hospital on 02/03/18 for a similar presentation. History is limited due to the patient's clinical status. She is admitted to [facility] detox on methadone treatment. - Past Medical History Cardiovascular: Yes: HTN Gastrointestinal: Yes: GERD ...LMP: 02/02/90 Psych: Yes: Bipolar - Smoking History Smoking history: Current every day smoker Have you smoked in the past 12 months: Yes Aproximately how many cigarettes per day: 8 - Alcohol/Substance Use Hx Alcohol Use: Yes Home Medications - Allergies Allergies/Adverse Reactions: Allergies Allergy/AdvReac Type Severity Reaction Status Date / Time No Known Allergies Allergy Verified 02/06/18 12:45 - Home Medications Home Medications: Ambulatory Orders Amlodipine Besylate [Norvasc -] 10 mg PO DAILY 10/06/17 Divalproex [Depakote -] 500 mg PO Q12H 02/02/18 Gabapentin [Neurontin -] 300 mg PO Q8H 02/02/18 Pantoprazole Sodium [Protonix -] 40 mg PO DAILY 02/02/18 Quetiapine Fumarate [Seroquel] 100 mg PO HS #30 tablet 02/02/18 Sertraline HCl [Zoloft -] 50 mg PO DAILY 02/03/18 Thiamine HCl [Vitamin B1 -] 100 mg PO HS tablet 02/04/18 Family Disease History - Family Disease History Family Disease History: Heart Disease: Father (), Other: Father, Mother (no contact), Brother ( hiv; ADDICTED TO DRUGS), Sister (; ADDICTED TO DRUGS) Physical Examination Vital Signs: Vital Signs Temperature 99.8 F H 02/06/18 12:52 Pulse Rate 78 02/06/18 20:24 Respiratory Rate 16 02/06/18 20:24 Blood Pressure 123/73 02/06/18 20:24 O2 Sat by Pulse Oximetry (%) 96 02/06/18 20:24 Constitutional: Yes: No Distress Neck: Yes: Supple Cardiovascular: Yes: Regular Rate and Rhythm Respiratory: Yes: CTA Bilaterally Gastrointestinal: Yes: Normal Bowel Sounds Extremities: Yes: WNL Neurological: Yes: Alert, Oriented Labs: CBC, BMP 02/06/18 12:45 02/06/18 12:45 Problem List - Problems (1) Anxiety disorder Assessment/Plan: on meds prn haldol continue home meds psych eval Code(s): F41.9 - ANXIETY DISORDER, UNSPECIFIED Qualifiers: (2) Hypertension Assessment/Plan: on meds stable monitor Code(s): I10 - ESSENTIAL (PRIMARY) HYPERTENSION Qualifiers: (3) Alcohol dependence Assessment/Plan: monitor detox consult Code(s): F10.20 - ALCOHOL DEPENDENCE, UNCOMPLICATED Qualifiers: Substance use status: uncomplicated Qualified Code(s): F10.20 - Alcohol dependence, uncomplicated (4) GERD (gastroesophageal reflux disease) Assessment/Plan: on protonix Code(s): K21.9 - GASTRO-ESOPHAGEAL REFLUX DISEASE WITHOUT ESOPHAGITIS Qualifiers: Assessment/Plan Laboratory Tests 02/06/18 02/06/18 02/06/18 12:45 12:45 12:45 WBC 8.4 D RBC 3.91 Hgb 11.3 D Hct 33.6 D MCV 85.8 MCH 28.9 MCHC 33.7 RDW 16.3 H Plt Count 194 MPV 8.5 Absolute Neuts (auto) 6.3 Neutrophils % 75.1 D Lymphocytes % 16.4 D Monocytes % 6.8 Eosinophils % 1.3 Basophils % 0.4 Nucleated RBC % 0 Sodium 140 Potassium 3.9 Chloride 104 Carbon Dioxide 29 Anion Gap 7 L BUN 8 Creatinine 0.7 Creat Clearance w eGFR > 60 Random Glucose 91 Calcium 8.9 Total Bilirubin 0.6 D AST 21 ALT 24 Alkaline Phosphatase 86 Ammonia 38.2 H Creatine Kinase 65 Troponin I < 0.02 Total Protein 8.1 Albumin 3.5 TSH 0.16 L Urine Color Urine Appearance Urine pH Ur Specific [place] Urine Protein Urine Glucose (UA) Urine Ketones Urine Blood Urine Nitrite Urine Bilirubin Urine Urobilinogen Ur Leukocyte Esterase Salicylates Opiates Screen Methadone Screen Acetaminophen Barbiturate Screen Valproic Acid Phencyclidine Screen Ur Amphetamines Screen MDMA (Ecstasy) Screen Benzodiazepines Screen Cocaine Screen U Marijuana (THC) Screen Alcohol, Quantitative 02/06/18 02/06/18 02/06/18 12:45 12:56 13:29 WBC RBC Hgb Hct MCV MCH MCHC RDW Plt Count MPV Absolute Neuts (auto) Neutrophils % Lymphocytes % Monocytes % Eosinophils % Basophils % Nucleated RBC % Sodium Potassium Chloride Carbon Dioxide Anion Gap BUN Creatinine Creat Clearance w eGFR Random Glucose Calcium Total Bilirubin AST ALT Alkaline Phosphatase Ammonia Creatine Kinase Troponin I Total Protein Albumin TSH Urine Color Ltyellow Urine Appearance Clear Urine pH 8.0 Ur Specific [place] 1.010 Urine Protein Negative Urine Glucose (UA) Negative Urine Ketones Negative Urine Blood Negative Urine Nitrite Negative Urine Bilirubin Negative Urine Urobilinogen Negative Ur Leukocyte Esterase Negative Salicylates <1.70 Opiates Screen Methadone Screen Acetaminophen <2 Barbiturate Screen Valproic Acid 75 Phencyclidine Screen Ur Amphetamines Screen MDMA (Ecstasy) Screen Benzodiazepines Screen Cocaine Screen U Marijuana (THC) Screen Alcohol, Quantitative < 5.0 02/06/18 13:29 WBC RBC Hgb Hct MCV MCH MCHC RDW Plt Count MPV Absolute Neuts (auto) Neutrophils % Lymphocytes % Monocytes % Eosinophils % Basophils % Nucleated RBC % Sodium Potassium Chloride Carbon Dioxide Anion Gap BUN Creatinine Creat Clearance w eGFR Random Glucose Calcium Total Bilirubin AST ALT Alkaline Phosphatase Ammonia Creatine Kinase Troponin I Total Protein Albumin TSH Urine Color Urine Appearance Urine pH Ur Specific [place] Urine Protein Urine Glucose (UA) Urine Ketones Urine Blood Urine Nitrite Urine Bilirubin Urine Urobilinogen Ur Leukocyte Esterase Salicylates Opiates Screen Negative Methadone Screen Negative Acetaminophen Barbiturate Screen Negative Valproic Acid Phencyclidine Screen Negative Ur Amphetamines Screen Negative MDMA (Ecstasy) Screen Negative Benzodiazepines Screen Positive Cocaine Screen Negative U Marijuana (THC) Screen Negative Alcohol, Quantitative Active Medications Generic Name Dose Route Start Last Admin Trade Name Freq PRN Reason Stop Dose Admin Amlodipine Besylate 10 mg 02/07/18 10:00 02/07/18 10:05 Norvasc - PO 10 mg DAILY ROULA Administration Divalproex Sodium 500 mg 02/06/18 22:00 02/07/18 21:10 Depakote - PO 500 mg BID ROULA Administration Gabapentin 300 mg 02/06/18 22:00 02/07/18 21:10 Neurontin - PO 300 mg TID ROULA Administration Pantoprazole Sodium 40 mg 02/07/18 10:00 06/12/18 10:06 Protonix - PO 40 mg DAILY ROULA Administration Quetiapine Fumarate 100 mg 02/06/18 22:00 02/06/18 22:59 Seroquel - PO 100 mg HS ROULA Administration Sertraline HCl 50 mg 02/07/18 10:00 02/07/18 10:06 Zoloft - PO 50 mg DAILY ROULA Administration Thiamine HCl 100 mg 02/06/18 22:00 02/07/18 21:10 Vitamin B1 - PO 100 mg HS ROULA Administration
[2018-02-06] MEDS: DIVALPROEX SODIUM 500 MG TABLET E.C. PO SCH (22:59)
[2018-02-06] MEDS ORDERED: PT OWN MED DRAWER 7, Y5N ONE (22:59)
[2018-02-06] MEDS: GABAPENTIN 300 MG CAPSULE (FP) PO SCH (22:59)
[2018-02-06] MEDS: QUEtiapine FUMARATE 100 MG TABLET (FP) PO SCH (22:59)
[2018-02-06] MEDS: THIAMINE HCL 100 MG TABLET (FP) PO SCH (22:59)
[2018-02-07 02:20] VITALS: BMI 28.3
[2018-02-07] MEDS: GABAPENTIN 300 MG CAPSULE (FP) PO SCH ×3 (06:47→21:10)
[2018-02-07 08:37] LABS: BASO % 0.4 % (0-2.0); EOS % 2.7 % (0-4.5); HEMATOCRIT 32.3 % (32.4-45.2); LYMPH % 18.4 % (8-40); MCH 29.1 pg (25.7-33.7); MCHC 33.9 g/dl (32.0-36.0); MEAN CELL VOLUME 85.7 fl (80-96); MEAN PLT VOLUME 8.6 fl (7.5-11.1); MONO % 7.8 % (3.8-10.2); NEUT % 70.7 % (42.8-82.8); PLATELET COUNT 155 K/MM3 (134-434); RBC 3.77 M/mm3 (3.60-5.2); RDW 16.3 % (11.6-15.6); WHITE BLOOD COUNT 6.3 K/mm3 (4.0-10.0)
[2018-02-07 09:04] LABS: CHLORIDE 104 mmol/L (98-107); POTASSIUM 3.5 mmol/L (3.5-5.1); SODIUM 141 mmol/L (136-145)
[2018-02-07 09:43] LABS: ALK PHOS 77 U/L (45-117); ANION GAP 11 (8-16); BILIRUBIN,TOTAL 0.6 mg/dL (0.2-1.0); BLOOD UREA NITROGEN 15 mg/dL (7-18); CALCIUM 8.7 mg/dL (8.5-10.1); CO2 26 mmol/L (21-32); CREATININE 0.5 mg/dL (0.55-1.02); GLUCOSE,RANDOM 86 mg/dL (74-106); SGOT/AST 19 U/L (15-37); SGPT/ALT 21 U/L (12-78); TOT PROT 7.4 g/dl (6.4-8.2)
[2018-02-07] MEDS: DIVALPROEX SODIUM 500 MG TABLET E.C. PO SCH ×2 (10:05→21:10)
[2018-02-07] MEDS: amLODIPine BESYLATE 10 MG TABLET (FP) PO SCH (10:05)
[2018-02-07] MEDS: SERTRALINE HCL 50 MG TABLET (FP) PO SCH (10:06)
[2018-02-07] MEDS: PANTOPRAZOLE 40 MG TABLET (FP) PO SCH (10:06)
--- NOTE | 2018-02-07 15:44 | PN ---
Progress Note, Physician History of Present Illness: still drowsy but waking up and responding - Current Medication List Current Medications: Active Medications Amlodipine Besylate (Norvasc -) 10 mg PO DAILY [facility] Last Admin: 02/07/18 10:05 Dose: 10 mg Divalproex Sodium (Depakote -) 500 mg PO BID [facility] Last Admin: 02/07/18 10:05 Dose: 500 mg Gabapentin (Neurontin -) 300 mg PO TID [facility] Last Admin: 02/07/18 14:27 Dose: 300 mg Pantoprazole Sodium (Protonix -) 40 mg PO DAILY [facility] Last Admin: 02/07/18 10:06 Dose: 40 mg Quetiapine Fumarate (Seroquel -) 100 mg PO [facility] Last Admin: 02/06/18 22:59 Dose: 100 mg Sertraline HCl (Zoloft -) 50 mg PO DAILY [facility] Last Admin: 02/07/18 10:06 Dose: 50 mg Thiamine HCl (Vitamin B1 -) 100 mg PO [facility] Last Admin: 02/06/18 22:59 Dose: 100 mg - Objective Vital Signs: Vital Signs Temperature 99.0 F 02/07/18 14:41 Pulse Rate 98 H 02/07/18 14:41 Respiratory Rate 18 02/07/18 14:41 Blood Pressure 117/87 02/07/18 14:41 O2 Sat by Pulse Oximetry (%) 97 02/07/18 13:00 Constitutional: Yes: No Distress HENT: Yes: Atraumatic Neck: Yes: Supple Cardiovascular: Yes: Regular Rate and Rhythm Respiratory: Yes: CTA Bilaterally Gastrointestinal: Yes: Normal Bowel Sounds Extremities: Yes: WNL Labs: CBC, BMP 02/07/18 08:13 02/07/18 08:13 Problem List - Problems (1) Anxiety disorder Assessment/Plan: on meds Code(s): F41.9 - ANXIETY DISORDER, UNSPECIFIED Qualifiers: (2) Hypertension Assessment/Plan: on meds stableon meds stable Code(s): I10 - ESSENTIAL (PRIMARY) HYPERTENSION Qualifiers: (3) Alcohol dependence Assessment/Plan: monitor detox consult Code(s): F10.20 - ALCOHOL DEPENDENCE, UNCOMPLICATED (4) GERD (gastroesophageal reflux disease) Assessment/Plan: on protonix Code(s): K21.9 - GASTRO-ESOPHAGEAL REFLUX DISEASE WITHOUT ESOPHAGITIS Qualifiers:
[2018-02-07] MEDS ORDERED: PT OWN MED DRAWER 7, Y5N ONE (20:53)
[2018-02-07] MEDS: THIAMINE HCL 100 MG TABLET (FP) PO SCH (21:10)
[2018-02-07] MEDS: QUEtiapine FUMARATE 100 MG TABLET (FP) PO SCH (21:38)
[2018-02-08] MEDS: GABAPENTIN 300 MG CAPSULE (FP) PO SCH ×3 (05:52→21:21)
[2018-02-08] MEDS: amLODIPine BESYLATE 10 MG TABLET (FP) PO SCH (09:35)
[2018-02-08] MEDS: PANTOPRAZOLE 40 MG TABLET (FP) PO SCH (09:35)
[2018-02-08] MEDS: DIVALPROEX SODIUM 500 MG TABLET E.C. PO SCH ×2 (09:35→21:21)
[2018-02-08] MEDS: SERTRALINE HCL 50 MG TABLET (FP) PO SCH (09:35)
--- NOTE | 2018-02-08 11:45 | PN ---
[facility] (SOAP[facility] Subjective: Addiction medicine consult called help in management of this pt as pt was transferred from [facility] to [facility] for further eval. This is the second admission to [facility] for this pt in the last week. Pt was intially transferred to [facility] on 02/03 for Altered mental status from [facility]-After work up and evaluation here and with no identified etiology of the altered metal status, pt was transferred back to [facility] after about 2 days. At [facility] pt was placed on methadone and librium detox protocol. After 2 days of detox protocol, pt was found to be lethargic and difficult to arouse. Narcan was given with no change in mental status and so was sent to [facility] for admission for alterned menatl status. Pt was noted to have an ammonia level of 104. Pt is diffucult to arouse this morning to obtain further history Objective: 02/08/18 19:04 Vital Signs - 24 hr 02/07/18 02/08/18 02/08/18 20:15 03:44 05:55 Temperature 98.6 F Pulse Rate 86 Respiratory 18 Rate Blood Pressure 111/73 O2 Sat by Pulse 97 97 Oximetry (%) 02/08/18 02/08/18 02/08/18 10:00 13:00 14:00 Temperature 98.6 F 98.6 F Pulse Rate 93 H 93 H Respiratory 20 20 Rate Blood Pressure 120/67 120/67 O2 Sat by Pulse 95 Oximetry (%) 02/08/18 18:00 Temperature 99.5 F Pulse Rate 90 Respiratory 20 Rate Blood Pressure 120/63 O2 Sat by Pulse Oximetry (%) Microbiology 02/06/18 13:29 Urine Culture - Final Urine - Urine Clean Catch Enterococcus Faecalis CBC, BMP 02/07/18 08:13 02/07/18 08:13 Abnormal Lab Results 02/07/18 21:00 Creatine Kinase 245 H This morning pt was noted to be lying in bed and was difficult to arouse with verbal commands. Pt was arousable to sternal rub. Assessment: 02/08/18 19:06 Pt is admitted with altered mental status- lethargic and was difficult to arouse this morning. This is not due to withdrawal from either methadone or librium- which she was receiving at [facility]. Pt needs further w/u for the altered mental status- neurology consult is pending. Plan: There is no indication at the present time for the patient to be placed on either methadone or librium detox protocols. She does not need a transfer back to [facility] for a detox admission as she has completed detox and if needed can go to rehab if pt is willing after her medical issues are resolved. Please call us back if we can be of assistance to you. Yousif Wagoner MD
[2018-02-08] MEDS ORDERED: PT OWN MED DRAWER 7, Y5N ONE (21:15)
[2018-02-08] MEDS: THIAMINE HCL 100 MG TABLET (FP) PO SCH (21:21)
[2018-02-08] MEDS: QUEtiapine FUMARATE 100 MG TABLET (FP) PO SCH (21:22)
--- NOTE | 2018-02-08 21:34 | CON.NEURO ---
Consult Consult Specialty:: NEUROLOGY-[address] - History of Present Illness History of Present Illness: This is the second admission to [facility] for this pt in the last week. Pt was intially transferred to [facility] on 02/03 for Altered mental status from [facility]-After work up and evaluation here and with no identified etiology of the altered metal status, pt was transferred back to [facility] after about 2 days. At [facility] pt was placed on methadone and librium detox protocol. After 2 days of detox protocol, pt was found to be lethargic and difficult to arouse. Narcan was given with no change in mental status and so was sent to [facility] for admission for alterned mental status. 67 year old female with a history of opiate abuse, alcohol, nicotine dependence, HTN, GERD, bipolar d/o, seizures, and depression who presents from [facility] for evaluation of AMS. The patient was noted to be lethargic and minimally responsive earlier this morning. She was given 2mg of SQ narcan en rout to the ED with poor response and the patient has maintained stable vital signs throughout her AMS. She was recently seen in the ED and admitted to the hospital on 02/03/18 for a similar presentation. History is limited due to the patient's clinical status. She is admitted to [facility] detox on methadone treatment. Not considered to be upon this admission here in methadone/librium withdrawl. Her mental status has improved somewhat, she is somnolent but wakes up for meds than returns to sleep. She is unable to relate hx. due to somnolence, not clear what type of seizures she has, when the last one was. Pt was noted to have an ammonia level of 104, on 02/06 documented at 32.4 - Past Medical History Cardio/Vascular: Yes: HTN Gastrointestinal: Yes: GERD ...LMP: 02/02/90 Psych: Yes: Bipolar - Alcohol/Substance Use Hx Alcohol Use: Yes - Smoking History Smoking history: Current every day smoker Have you smoked in the past 12 months: Yes Aproximately how many cigarettes per day: 8 Home Medications - Allergies Allergies/Adverse Reactions: Allergies Allergy/AdvReac Type Severity Reaction Status Date / Time No Known Allergies Allergy Verified 02/06/18 12:45 - Home Medications Home Medications: Ambulatory Orders Amlodipine Besylate [Norvasc -] 10 mg PO DAILY 10/06/17 Divalproex [Depakote -] 500 mg PO Q12H 02/02/18 Gabapentin [Neurontin -] 300 mg PO Q8H 02/02/18 Pantoprazole Sodium [Protonix -] 40 mg PO DAILY 02/02/18 Quetiapine Fumarate [Seroquel] 100 mg PO HS #30 tablet 02/02/18 Sertraline HCl [Zoloft -] 50 mg PO DAILY 02/03/18 Thiamine HCl [Vitamin B1 -] 100 mg PO HS tablet 02/04/18 Family Disease History - Family Disease History Family Disease History: Heart Disease: Father (), Other: Father, Mother (no contact), Brother ( hiv; ADDICTED TO DRUGS), Sister (; ADDICTED TO DRUGS) Physical Exam-Neuro Vital Signs: Vital Signs Temperature 99.5 F 02/08/18 18:00 Pulse Rate 90 02/08/18 18:00 Respiratory Rate 20 02/08/18 18:00 Blood Pressure 120/63 02/08/18 18:00 O2 Sat by Pulse Oximetry (%) 95 02/08/18 13:00 Labs: CBC, BMP 02/07/18 08:13 02/07/18 08:13 - Neuro Exam Level Of Consciousness: Yes: Oriented to Person, Oriented to Place (Pt. is asleep, easily arousable by voice but is letyhargic, falls back to sleep) Speech: Garbled Dominant Hand: Right Mini Mental Exam: Lethargic, arousable but mumbles yes/no answers only, falls back to sleep. DTR's: 0 Left Achilles, 0 Right Achilles, 1+ Left Bicep, 1+ Right Bicep, 1+ Left Tricep, 1+ Right Tricep, 1+ Left Brachioradialis, 1+ Right Brachioradialis Babinski: Absent Response to light touch: Normal (Withdraws all 4 ext. to pain equally) Movement Disorders: Asterixis (Present in left hand/wrist) Motor Strength: 4/5: Left Arm, Right Arm, Left Leg, Right Leg (Thru lethargy moves all 4 ext with at least 4/5 strength) Gait: Deferred Imaging - Results Cat Scan: Report Reviewed (Without acute abn.) Assessment/Plan Persistent lethargy in pt. after [facility] detox, she does not appear intoxicated. Likley causes of lethargy are metabolic-hepatic encephalopathy, less likely partial seizures, infection. Suggest: d/c Depakote- this can cause encephalopathy even if NH3 level is normal and replace with Keppra 750mg bid EEG- to look for signs of encephalopathy. please consider GI consultation to address possible hepatic encephalopathy. Thank you, Bret Barnard MD
[2018-02-08] MEDS: levETIRAcetam 500 MG TABLET (FP) PO SCH (22:41)
[2018-02-08] MEDS: levETIRAcetam 250 MG TABLET (FP) PO SCH (22:41)
--- NOTE | 2018-02-08 22:50 | PN ---
Progress Note, Physician - Current Medication List Current Medications: Active Medications Amlodipine Besylate (Norvasc -) 10 mg PO DAILY [facility] Last Admin: 02/08/18 09:35 Dose: 10 mg Gabapentin (Neurontin -) 300 mg PO TID [facility] Last Admin: 02/08/18 21:21 Dose: 300 mg Levetiracetam (Keppra -) 500 mg PO BID [facility] Last Admin: 02/08/18 22:41 Dose: 500 mg Levetiracetam (Keppra -) 250 mg PO BID [facility] Last Admin: 02/08/18 22:41 Dose: 250 mg Pantoprazole Sodium (Protonix -) 40 mg PO DAILY [facility] Last Admin: 02/08/18 09:35 Dose: 40 mg Quetiapine Fumarate (Seroquel -) 100 mg PO HS [facility] Last Admin: 02/08/18 21:22 Dose: 100 mg Sertraline HCl (Zoloft -) 50 mg PO DAILY [facility] Last Admin: 02/08/18 09:35 Dose: 50 mg Thiamine HCl (Vitamin B1 -) 100 mg PO HS [facility] Last Admin: 02/08/18 21:21 Dose: 100 mg - Objective Vital Signs: Vital Signs Temperature 99.5 F 02/08/18 18:00 Pulse Rate 90 02/08/18 18:00 Respiratory Rate 20 02/08/18 18:00 Blood Pressure 120/63 02/08/18 18:00 O2 Sat by Pulse Oximetry (%) 95 02/08/18 13:00 Respiratory: Yes: Hyperresonant Labs: CBC, BMP 02/07/18 08:13 02/07/18 08:13
[2018-02-09] MEDS: levETIRAcetam 250 MG TABLET (FP) PO SCH ×2 (14:11→21:42)
[2018-02-09] MEDS: GABAPENTIN 300 MG CAPSULE (FP) PO SCH ×2 (14:11→21:43)
[2018-02-09] MEDS: levETIRAcetam 500 MG TABLET (FP) PO SCH ×2 (14:11→21:43)
[2018-02-09] MEDS: amLODIPine BESYLATE 10 MG TABLET (FP) PO SCH (14:11)
[2018-02-09] MEDS: SERTRALINE HCL 50 MG TABLET (FP) PO SCH (14:12)
[2018-02-09] MEDS: PANTOPRAZOLE 40 MG TABLET (FP) PO SCH (14:12)
[2018-02-09] MEDS ORDERED: PT OWN MED DRAWER 7, Y5N ONE (20:37)
[2018-02-09] MEDS: QUEtiapine FUMARATE 100 MG TABLET (FP) PO SCH (21:42)
[2018-02-09] MEDS: THIAMINE HCL 100 MG TABLET (FP) PO SCH (21:43)
--- NOTE | 2018-02-09 22:26 | PN ---
Progress Note, Physician History of Present Illness: Pt remains lethargic - Current Medication List Current Medications: Active Medications Amlodipine Besylate (Norvasc -) 10 mg PO DAILY [facility] Last Admin: 02/09/18 14:11 Dose: Not Given Gabapentin (Neurontin -) 300 mg PO TID [facility] Last Admin: 02/09/18 21:43 Dose: 300 mg Levetiracetam (Keppra -) 500 mg PO BID [facility] Last Admin: 02/09/18 21:43 Dose: 500 mg Levetiracetam (Keppra -) 250 mg PO BID [facility] Last Admin: 02/09/18 21:42 Dose: 250 mg Pantoprazole Sodium (Protonix -) 40 mg PO DAILY [facility] Last Admin: 02/09/18 14:12 Dose: Not Given Quetiapine Fumarate (Seroquel -) 100 mg PO HS [facility] Last Admin: 02/09/18 21:42 Dose: 100 mg Sertraline HCl (Zoloft -) 50 mg PO DAILY [facility] Last Admin: 02/09/18 14:12 Dose: Not Given Thiamine HCl (Vitamin B1 -) 100 mg PO HS [facility] Last Admin: 02/09/18 21:43 Dose: 100 mg - Objective Vital Signs: Vital Signs Temperature 99.2 F 02/09/18 18:00 Pulse Rate 86 02/09/18 18:00 Respiratory Rate 20 02/09/18 18:00 Blood Pressure 123/68 02/09/18 18:00 O2 Sat by Pulse Oximetry (%) 95 02/09/18 08:00 HENT: Yes: WNL Neck: Yes: WNL, Supple Cardiovascular: Yes: WNL, Regular Rate and Rhythm Respiratory: Yes: WNL, Regular, CTA Bilaterally Gastrointestinal: Yes: WNL, Normal Bowel Sounds, Soft Labs: CBC, BMP 02/07/18 08:13 02/07/18 08:13 Problem List - Problems (1) Altered mental status Assessment/Plan: Due to metabolic encephalopathy ?Hepatic encephalopathy GI consult Code(s): R41.82 - ALTERED MENTAL STATUS, UNSPECIFIED Qualifiers: Altered mental status type: somnolence Qualified Code(s): R40.0 - Somnolence (2) History of seizures Assessment/Plan: Cont keppra Code(s): Z87.898 - PERSONAL HISTORY OF OTHER SPECIFIED CONDITIONS (3) Alcohol dependence Code(s): F10.20 - ALCOHOL DEPENDENCE, UNCOMPLICATED Qualifiers: Substance use status: uncomplicated Qualified Code(s): F10.20 - Alcohol dependence, uncomplicated (4) GERD (gastroesophageal reflux disease) Assessment/Plan: Cont protonix Code(s): K21.9 - GASTRO-ESOPHAGEAL REFLUX DISEASE WITHOUT ESOPHAGITIS Qualifiers: (5) Hypertension Assessment/Plan: BP stable Code(s): I10 - ESSENTIAL (PRIMARY) HYPERTENSION Qualifiers:
[2018-02-10 07:46] LABS: BASO % 0.5 % (0-2.0); EOS % 2.6 % (0-4.5); HEMATOCRIT 33.3 % (32.4-45.2); HEMOGLOBIN 11.2 GM/dL (10.7-15.3); LYMPH % 29.4 % (8-40); MCHC 33.6 g/dl (32.0-36.0); MEAN CELL VOLUME 86.3 fl (80-96); MEAN PLT VOLUME 8.6 fl (7.5-11.1); MONO % 8.2 % (3.8-10.2); NEUT % 59.3 % (42.8-82.8); PLATELET COUNT 168 K/MM3 (134-434); RBC 3.86 M/mm3 (3.60-5.2); RDW 15.7 % (11.6-15.6); WHITE BLOOD COUNT 4.9 K/mm3 (4.0-10.0)
[2018-02-10 07:48] LABS: CHLORIDE 109 mmol/L (98-107); POTASSIUM 3.8 mmol/L (3.5-5.1); SODIUM 145 mmol/L (136-145)
[2018-02-10 08:14] LABS: ALK PHOS 68 U/L (45-117); ANION GAP 11 (8-16); BILIRUBIN,TOTAL 0.5 mg/dL (0.2-1.0); BLOOD UREA NITROGEN 26 mg/dL (7-18); CO2 25 mmol/L (21-32); CREATININE 0.5 mg/dL (0.55-1.02); GLUCOSE,RANDOM 91 mg/dL (74-106); SGOT/AST 16 U/L (15-37); SGPT/ALT 18 U/L (12-78); TOT PROT 7.5 g/dl (6.4-8.2)
[2018-02-10] MEDS: GABAPENTIN 300 MG CAPSULE (FP) PO SCH ×3 (09:12→22:20)
--- NOTE | 2018-02-10 09:12 | CON.GI ---
Consult Consult Specialty:: GI Reason for Consultation:: altered mental status - History of Present Illness History of Present Illness: Chart reviewed. Per initial intake: The patient is a 67 year old female with a history of opiate abuse, alcohol, nicotine dependence, HTN, GERD, bipolar d/o, seizures, and depression who presents from [facility] for evaluation of AMS. The patient was noted to be lethargic and minimally responsive earlier this morning. She was given 2mg of SQ narcan en rout to the ED with poor response and the patient has maintained stable vital signs throughout her AMS. She was recently seen in the ED and admitted to the hospital on 02/03/18 for a similar presentation. History is limited due to the patient's clinical status. She is admitted to [facility] detox on methadone treatment. At the time of this encounter the patient is still lethargic, arousable, however incoherent and unable to maintain a conversation. Doesn't appear toxic, or in distress. No stigmata of advanced liver disease exam. History from the chart and prior admissions - History Source History Provided By: Medical Record Limitations to Obtaining History: Clinical Condition - Past Medical History Cardio/Vascular: Yes: HTN Gastrointestinal: Yes: GERD ...LMP: 02/02/90 Psych: Yes: Bipolar - Alcohol/Substance Use Hx Alcohol Use: Yes - Smoking History Smoking history: Current every day smoker Have you smoked in the past 12 months: Yes Aproximately how many cigarettes per day: 8 Home Medications - Allergies Allergies/Adverse Reactions: Allergies Allergy/AdvReac Type Severity Reaction Status Date / Time No Known Allergies Allergy Verified 02/06/18 12:45 - Home Medications Home Medications: Ambulatory Orders Amlodipine Besylate [Norvasc -] 10 mg PO DAILY 10/06/17 Divalproex [Depakote -] 500 mg PO Q12H 02/02/18 Gabapentin [Neurontin -] 300 mg PO Q8H 02/02/18 Pantoprazole Sodium [Protonix -] 40 mg PO DAILY 02/02/18 Quetiapine Fumarate [Seroquel] 100 mg PO HS #30 tablet 02/02/18 Sertraline HCl [Zoloft -] 50 mg PO DAILY 02/03/18 Thiamine HCl [Vitamin B1 -] 100 mg PO HS tablet 02/04/18 Family Disease History - Family Disease History Family Disease History: Heart Disease: Father (), Other: Father, Mother (no contact), Brother ( hiv; ADDICTED TO DRUGS), Sister (; ADDICTED TO DRUGS) Review of Systems Unable to obtain ROS, reason: lethargic Physical Exam-GI Vital Signs: Vital Signs Temperature 97.5 F L 02/10/18 08:13 Pulse Rate 81 02/10/18 08:13 Respiratory Rate 20 02/10/18 08:13 Blood Pressure 123/68 02/10/18 08:13 O2 Sat by Pulse Oximetry (%) 96 02/10/18 06:00 Constitutional: Yes: No Distress. No: Pallor Eyes: Yes: Conjunctiva Clear. No: Sclera Icterus HENT: No: Atraumatic Neck: No: Supple Cardiovascular: Yes: Regular Rate and Rhythm Respiratory: Yes: Regular Gastrointestinal Inspection: No: Ascites, Distention ...Auscultate: Yes: Normoactive Bowel Sounds ...Palpate: Yes: Soft. No: Firm/Rigid, Guarding, Mass Labs: CBC, BMP 02/10/18 06:10 02/10/18 06:10 Laboratory Last Values WBC 4.9 K/mm3 (4.0-10.0) 02/10/18 06:10 RBC 3.86 M/mm3 (3.60-5.2) 02/10/18 06:10 Hgb 11.2 GM/dL (10.7-15.3) 02/10/18 06:10 Hct 33.3 % (32.4-45.2) 02/10/18 06:10 MCV 86.3 fl (80-96) 02/10/18 06:10 MCH 29.0 pg (25.7-33.7) 02/10/18 06:10 MCHC 33.6 g/dl (32.0-36.0) 02/10/18 06:10 RDW 15.7 % (11.6-15.6) H 02/10/18 06:10 Plt Count 168 K/MM3 (134-434) 02/10/18 06:10 MPV 8.6 fl (7.5-11.1) 02/10/18 06:10 Absolute Neuts (auto) 2.9 # 02/10/18 06:10 Neutrophils % 59.3 % (42.8-82.8) 02/10/18 06:10 Lymphocytes % 29.4 % (8-40) D 02/10/18 06:10 Monocytes % 8.2 % (3.8-10.2) 02/10/18 06:10 Eosinophils % 2.6 % (0-4.5) 02/10/18 06:10 Basophils % 0.5 % (0-2.0) 02/10/18 06:10 Nucleated RBC % 0 % (0-0) 02/10/18 06:10 Sodium 145 mmol/L (136-145) 02/10/18 06:10 Potassium 3.8 mmol/L (3.5-5.1) 02/10/18 06:10 Chloride 109 mmol/L (98-107) H 02/10/18 06:10 Carbon Dioxide 25 mmol/L (21-32) 02/10/18 06:10 Anion Gap 11 (8-16) 02/10/18 06:10 BUN 26 mg/dL (7-18) H 02/10/18 06:10 Creatinine 0.5 mg/dL (0.55-1.02) L 02/10/18 06:10 Creat Clearance w eGFR > 60 (>60) 02/10/18 06:10 Random Glucose 91 mg/dL (74-106) 02/10/18 06:10 Calcium 9.0 mg/dL (8.5-10.1) 02/10/18 06:10 Total Bilirubin 0.5 mg/dL (0.2-1.0) 02/10/18 06:10 AST 16 U/L (15-37) 02/10/18 06:10 ALT 18 U/L (12-78) 02/10/18 06:10 Alkaline Phosphatase 68 U/L (45-117) 02/10/18 06:10 Ammonia 32.6 umol/L (11-32) H 02/10/18 06:10 Creatine Kinase 245 IU/L (26-192) H 02/07/18 21:00 Creatine Kinase Index 0.8 % (0.0-5.0) 02/07/18 21:00 CK-MB (CK-2) 2.06 ng/mL (0.5-3.6) 02/07/18 21:00 Troponin I < 0.02 ng/ml (0.00-0.05) 02/07/18 21:00 Total Protein 7.5 g/dl (6.4-8.2) 02/10/18 06:10 Albumin 3.0 g/dl (3.4-5.0) L 02/10/18 06:10 Vitamin B12 1467 pg/ml (180-914) H 02/09/18 06:10 Serum Folate 29 ng/ml (3.1-17.5) H 02/09/18 06:10 TSH 0.28 uIU/ml (0.358-3.74) L 02/09/18 06:10 Urine Color Ltyellow 02/06/18 13:29 Urine Appearance Clear 02/06/18 13:29 Urine pH 8.0 (5.0-8.0) 02/06/18 13:29 Ur Specific [place] 1.010 (1.001-1.035) 02/06/18 13:29 Urine Protein Negative (NEGATIVE) 02/06/18 13:29 Urine Glucose (UA) Negative (NEGATIVE) 02/06/18 13:29 Urine Ketones Negative (NEGATIVE) 02/06/18 13:29 Urine Blood Negative (NEGATIVE) 02/06/18 13:29 Urine Nitrite Negative (NEGATIVE) 02/06/18 13:29 Urine Bilirubin Negative (<2.0 mg/dL) 02/06/18 13:29 Urine Urobilinogen Negative mg/dL (0.2-1.0) 02/06/18 13:29 Ur Leukocyte Esterase Negative (NEGATIVE) 02/06/18 13:29 Salicylates <1.70 mg/dL 02/06/18 12:45 Opiates Screen Negative ng/ml (BDOXPL=819) 02/06/18 13:29 Methadone Screen Negative ng/ml (XRBHRC=462) 02/06/18 13:29 Acetaminophen <2 ug/mL 02/06/18 12:45 Barbiturate Screen Negative ng/ml (UWBSNM=780) 02/06/18 13:29 Valproic Acid 75 ug/ml (50-100) 02/06/18 12:56 Phencyclidine Screen Negative ng/ml (CUTOFF=25) 02/06/18 13:29 Ur Amphetamines Screen Negative ng/ml (QCTDWC=791) 02/06/18 13:29 MDMA (Ecstasy) Screen Negative ng/ml (AXEMJO=990) 02/06/18 13:29 Benzodiazepines Screen Positive ng/ml (KBRCGT=087) 02/06/18 13:29 Cocaine Screen Negative ng/ml (RAWDNW=402) 02/06/18 13:29 U Marijuana (THC) Screen Negative ng/ml (CUTOFF=50) 02/06/18 13:29 Alcohol, Quantitative < 5.0 mg/dL (0.0-5.0) 02/06/18 12:45 Problem List - Problems (1) Altered mental status Code(s): R41.82 - ALTERED MENTAL STATUS, UNSPECIFIED Qualifiers: Altered mental status type: somnolence Qualified Code(s): R40.0 - Somnolence (2) Alcohol dependence with uncomplicated withdrawal Code(s): F10.230 - ALCOHOL DEPENDENCE WITH WITHDRAWAL, UNCOMPLICATED (3) Hepatitis C Code(s): B19.20 - UNSPECIFIED VIRAL HEPATITIS C WITHOUT HEPATIC COMA Qualifiers: Viral hepatitis chronicity: unspecified Hepatic coma status: without hepatic coma Qualified Code(s): B19.20 - Unspecified viral hepatitis C without hepatic coma Assessment/Plan A 67F with hx of substance abuse and HCV however w/o overt stigmata of liver disease per exam and labs. The pt's current state is unlikely to be due to hepatic encephalopathy. Suspect drugs of abuse and or CHILD CARE event. Obtain CT brain and liver US.
[2018-02-10] MEDS: levETIRAcetam 500 MG TABLET (FP) PO SCH ×3 (11:50→22:21)
[2018-02-10] MEDS: amLODIPine BESYLATE 10 MG TABLET (FP) PO SCH ×2 (11:51→12:11)
[2018-02-10] MEDS: levETIRAcetam 250 MG TABLET (FP) PO SCH ×3 (11:51→22:20)
[2018-02-10] MEDS: PANTOPRAZOLE 40 MG TABLET (FP) PO SCH ×2 (11:51→12:11)
[2018-02-10] MEDS: SERTRALINE HCL 50 MG TABLET (FP) PO SCH ×2 (11:51→12:12)
--- NOTE | 2018-02-10 13:56 | CON.PULM ---
Consult Consult Specialty:: PULMONARY Referred by:: MERCEDES Reason for Consultation:: COUGH - History of Present Illness Chief Complaint: COUGH/SOB History of Present Illness: 67 F with h/o opiate abuse, alcohol, nicotine dependence, HTN, GERD, bipolar d/o , seizures, and depression, sent from [facility] rehab for altered mental status. Per EMS, pt was found to be lethargic and poorly responsive this AM. She was given narcan 2mg IM by EMS, with minimal change in mental status. Pt arrived to ED with sonorous breath sounds responsive to painful stimuli. NPt with stable vitals en route and protecting airway in ED. - History Source History Provided By: Medical Record Limitations to Obtaining History: Clinical Condition - Past Medical History Cardio/Vascular: Yes: HTN Gastrointestinal: Yes: GERD ...LMP: 02/02/90 Heme/Onc: Yes: Anemia Psych: Yes: Bipolar - Alcohol/Substance Use Hx Alcohol Use: Yes - Smoking History Smoking history: Current every day smoker Have you smoked in the past 12 months: Yes Aproximately how many cigarettes per day: 8 Home Medications - Allergies Allergies/Adverse Reactions: Allergies Allergy/AdvReac Type Severity Reaction Status Date / Time No Known Allergies Allergy Verified 02/06/18 12:45 - Home Medications Home Medications: Ambulatory Orders Amlodipine Besylate [Norvasc -] 10 mg PO DAILY 10/06/17 Divalproex [Depakote -] 500 mg PO Q12H 02/02/18 Gabapentin [Neurontin -] 300 mg PO Q8H 02/02/18 Pantoprazole Sodium [Protonix -] 40 mg PO DAILY 02/02/18 Quetiapine Fumarate [Seroquel] 100 mg PO HS #30 tablet 02/02/18 Sertraline HCl [Zoloft -] 50 mg PO DAILY 02/03/18 Thiamine HCl [Vitamin B1 -] 100 mg PO HS tablet 02/04/18 Family Disease History - Family Disease History Family Disease History: Heart Disease: Father (), Other: Father, Mother (no contact), Brother ( hiv; ADDICTED TO DRUGS), Sister (; ADDICTED TO DRUGS) Review of Systems Unable to obtain ROS, reason: UNABLE TO OBTAIN Physical Exam Vital Sings: Vital Signs Temperature 97.5 F L 02/10/18 08:13 Pulse Rate 81 02/10/18 08:13 Respiratory Rate 20 02/10/18 08:13 Blood Pressure 123/68 02/10/18 08:13 O2 Sat by Pulse Oximetry (%) 96 02/10/18 06:00 Constitutional: Yes: Other (DROWSY) Eyes: Yes: Conjunctiva Clear HENT: Yes: Atraumatic Neck: Yes: Supple Cardiovascular: Yes: Regular Rate and Rhythm Respiratory: Yes: Diminished Gastrointestinal: Yes: Normal Bowel Sounds Edema: No Neurological: Yes: Confusion, Lethargy, Weakness, Other Labs: CBC, BMP 02/10/18 06:10 02/10/18 06:10 REST REVIEWED Imaging - Results Chest X-ray: Report Reviewed, Image Reviewed EKG: Report Reviewed, Image Reviewed Problem List - Problems (1) Altered mental status Code(s): R41.82 - ALTERED MENTAL STATUS, UNSPECIFIED Qualifiers: Altered mental status type: somnolence Qualified Code(s): R40.0 - Somnolence (2) Toxic metabolic encephalopathy Code(s): G92 - TOXIC ENCEPHALOPATHY (3) Alcohol dependence with uncomplicated withdrawal Code(s): F10.230 - ALCOHOL DEPENDENCE WITH WITHDRAWAL, UNCOMPLICATED (4) Drug-induced mood disorder Code(s): F19.94 - OTH PSYCHOACTIVE SUBSTANCE USE, UNSP W MOOD DISORDER (5) MDD (major depressive disorder) Code(s): F32.9 - MAJOR DEPRESSIVE DISORDER, SINGLE EPISODE, UNSPECIFIED Assessment/Plan HIGH RISK FOR ASPIRATION GIVEN CURRENT MENTAL STATUS HAVE ORDERED NPO O2/BRONCHODILATORS IV FLUIDS B12/TFT'S/RPR/ABG IF PATIENT ALLOWS PANCULTURE F/U CXR SHOULD HAVE ONE TO ONE OBSERVATION Gloria ROSS MD
--- NOTE | 2018-02-10 15:38 | PN ---
Progress Note, Physician - Current Medication List Current Medications: Active Medications Amlodipine Besylate (Norvasc -) 10 mg PO DAILY [facility] Last Admin: 02/10/18 12:11 Dose: Not Given Gabapentin (Neurontin -) 300 mg PO TID [facility] Last Admin: 02/10/18 13:39 Dose: Not Given Lactulose (Cephulac (Oral Use)) 20 gm PO TID PRN PRN Reason: CONSTIPATION Levetiracetam (Keppra -) 500 mg PO BID [facility] Last Admin: 02/10/18 12:11 Dose: Not Given Levetiracetam (Keppra -) 250 mg PO BID [facility] Last Admin: 02/10/18 12:11 Dose: Not Given Pantoprazole Sodium (Protonix -) 40 mg PO DAILY [facility] Last Admin: 02/10/18 12:11 Dose: Not Given Quetiapine Fumarate (Seroquel -) 100 mg PO [facility] Last Admin: 02/09/18 21:42 Dose: 100 mg Sertraline HCl (Zoloft -) 50 mg PO DAILY [facility] Last Admin: 02/10/18 12:12 Dose: Not Given Thiamine HCl (Vitamin B1 -) 100 mg PO [facility] Last Admin: 02/09/18 21:43 Dose: 100 mg - Objective Vital Signs: Vital Signs Temperature 97.4 F L 02/10/18 14:07 Pulse Rate 88 02/10/18 14:07 Respiratory Rate 18 02/10/18 14:07 Blood Pressure 128/73 02/10/18 14:07 O2 Sat by Pulse Oximetry (%) 92 L 02/10/18 14:00 Constitutional: Yes: Anxious HENT: Yes: Atraumatic Neck: Yes: Supple Cardiovascular: Yes: Regular Rate and Rhythm Respiratory: Yes: Rhonchi Gastrointestinal: Yes: Normal Bowel Sounds Extremities: Yes: WNL Edema: No Integumentary: Yes: WNL Neurological: Yes: Alert, Oriented Labs: CBC, BMP 02/10/18 06:10 02/10/18 06:10 Problem List - Problems (1) Anxiety disorder Assessment/Plan: on meds prn ativan Code(s): F41.9 - ANXIETY DISORDER, UNSPECIFIED Qualifiers: (2) Hypertension Assessment/Plan: on meds stable Code(s): I10 - ESSENTIAL (PRIMARY) HYPERTENSION Qualifiers: (3) Alcohol dependence Assessment/Plan: monitor detox consult Code(s): F10.20 - ALCOHOL DEPENDENCE, UNCOMPLICATED Qualifiers: Substance use status: uncomplicated Qualified Code(s): F10.20 - Alcohol dependence, uncomplicated (4) GERD (gastroesophageal reflux disease) Assessment/Plan: on protonix Code(s): K21.9 - GASTRO-ESOPHAGEAL REFLUX DISEASE WITHOUT ESOPHAGITIS Qualifiers:
[2018-02-10] MEDS: LACTULOSE 20 GM/30 ML UDC (FOR ORAL USE ONLY) PO PRN (17:45)
[2018-02-10] MEDS ORDERED: PT OWN MED DRAWER 7, Y5N ONE (20:41)
[2018-02-10] MEDS: QUEtiapine FUMARATE 100 MG TABLET (FP) PO SCH (22:20)
[2018-02-10] MEDS: THIAMINE HCL 100 MG TABLET (FP) PO SCH (22:20)
[2018-02-11] MEDS: ACETAMINOPHEN 650 MG/20.3 ML ORAL SOLUTION (CUPS) PO PRN (00:30)
[2018-02-11] MEDS: GABAPENTIN 300 MG CAPSULE (FP) PO SCH ×3 (06:12→23:15)
--- NOTE | 2018-02-11 08:54 | PN ---
Progress Note (short form) - Note Progress Note: PULMONARY REMAINS LETHARGIC VSS/AFEBRILE ANICTERIC DISTANT BREATH SOUNDS S1S2 BS+ NO EDEMA ABD US PENDING W/U THUS FAR UNREVEALING FOR ETIOLOGY OF CONTINUED LETHARGY NEURO EVAL/EEG NOTED CONSIDER DECREASING SEROQUEL - Problems (1) Altered mental status Code(s): R41.82 - ALTERED MENTAL STATUS, UNSPECIFIED Qualifiers: Altered mental status type: somnolence Qualified Code(s): R40.0 - Somnolence (2) Toxic metabolic encephalopathy Code(s): G92 - TOXIC ENCEPHALOPATHY (3) Alcohol dependence with uncomplicated withdrawal Code(s): F10.230 - ALCOHOL DEPENDENCE WITH WITHDRAWAL, UNCOMPLICATED (4) Drug-induced mood disorder Code(s): F19.94 - OTH PSYCHOACTIVE SUBSTANCE USE, UNSP W MOOD DISORDER (5) MDD (major depressive disorder) Code(s): F32.9 - MAJOR DEPRESSIVE DISORDER, SINGLE EPISODE, UNSPECIFIED Assessment/Plan HIGH RISK FOR ASPIRATION GIVEN CURRENT MENTAL STATUS O2/BRONCHODILATORS NEEDED MAY NEED ONE TO ONE OBSERVATION Gloria ROSS MD Problem List - Problems (1) Altered mental status Code(s): R41.82 - ALTERED MENTAL STATUS, UNSPECIFIED Qualifiers: Altered mental status type: somnolence Qualified Code(s): R40.0 - Somnolence (2) Toxic metabolic encephalopathy Code(s): G92 - TOXIC ENCEPHALOPATHY (3) Alcohol dependence with uncomplicated withdrawal Code(s): F10.230 - ALCOHOL DEPENDENCE WITH WITHDRAWAL, UNCOMPLICATED (4) Drug-induced mood disorder Code(s): F19.94 - OTH PSYCHOACTIVE SUBSTANCE USE, UNSP W MOOD DISORDER (5) MDD (major depressive disorder) Code(s): F32.9 - MAJOR DEPRESSIVE DISORDER, SINGLE EPISODE, UNSPECIFIED
[2018-02-11] MEDS: PANTOPRAZOLE 40 MG TABLET (FP) PO SCH (10:17)
[2018-02-11] MEDS: amLODIPine BESYLATE 10 MG TABLET (FP) PO SCH (10:17)
[2018-02-11] MEDS: levETIRAcetam 250 MG TABLET (FP) PO SCH ×2 (10:17→23:06)
[2018-02-11] MEDS: SERTRALINE HCL 50 MG TABLET (FP) PO SCH (10:17)
[2018-02-11] MEDS: levETIRAcetam 500 MG TABLET (FP) PO SCH ×2 (10:17→23:16)
--- NOTE | 2018-02-11 13:09 | PN ---
Progress Note, Physician - Current Medication List Current Medications: Active Medications Acetaminophen (Tylenol Oral Solution -) 650 mg PO Q6H PRN PRN Reason: PAIN LEVEL 1 - 3 Last Admin: 02/11/18 00:30 Dose: 650 mg Amlodipine Besylate (Norvasc -) 10 mg PO DAILY [facility] Last Admin: 02/11/18 10:17 Dose: 10 mg Gabapentin (Neurontin -) 300 mg PO TID [facility] Last Admin: 02/11/18 06:12 Dose: 300 mg Lactulose (Cephulac (Oral Use)) 20 gm PO TID PRN PRN Reason: CONSTIPATION Last Admin: 02/10/18 17:45 Dose: 20 gm Levetiracetam (Keppra -) 500 mg PO BID [facility] Last Admin: 02/11/18 10:17 Dose: 500 mg Levetiracetam (Keppra -) 250 mg PO BID [facility] Last Admin: 02/11/18 10:17 Dose: 250 mg Pantoprazole Sodium (Protonix -) 40 mg PO DAILY [facility] Last Admin: 02/11/18 10:17 Dose: 40 mg Quetiapine Fumarate (Seroquel -) 100 mg PO [facility] Last Admin: 02/10/18 22:20 Dose: 100 mg Sertraline HCl (Zoloft -) 50 mg PO DAILY [facility] Last Admin: 02/11/18 10:17 Dose: 50 mg Thiamine HCl (Vitamin B1 -) 100 mg PO [facility] Last Admin: 02/10/18 22:20 Dose: 100 mg - Objective Vital Signs: Vital Signs Temperature 97.4 F L 02/11/18 10:00 Pulse Rate 77 02/11/18 10:00 Respiratory Rate 18 02/11/18 10:00 Blood Pressure 149/93 02/11/18 10:00 O2 Sat by Pulse Oximetry (%) 94 L 02/11/18 06:00 HENT: Yes: Atraumatic Neck: Yes: Supple Cardiovascular: Yes: Regular Rate and Rhythm Respiratory: Yes: CTA Bilaterally Extremities: Yes: WNL Neurological: Yes: Alert, Oriented Labs: CBC, BMP 02/10/18 06:10 02/10/18 06:10 Problem List - Problems (1) Anxiety disorder Assessment/Plan: on meds prn haldol/ativan continue home meds psych eval Code(s): F41.9 - ANXIETY DISORDER, UNSPECIFIED Qualifiers: (2) Hypertension Assessment/Plan: on meds stable Code(s): I10 - ESSENTIAL (PRIMARY) HYPERTENSION Qualifiers: (3) Alcohol dependence Assessment/Plan: monitor detox consult Code(s): F10.20 - ALCOHOL DEPENDENCE, UNCOMPLICATED Qualifiers: Substance use status: uncomplicated Qualified Code(s): F10.20 - Alcohol dependence, uncomplicated (4) GERD (gastroesophageal reflux disease) Assessment/Plan: on protonix Code(s): K21.9 - GASTRO-ESOPHAGEAL REFLUX DISEASE WITHOUT ESOPHAGITIS Qualifiers:
[2018-02-11] MEDS: LACTULOSE 20 GM/30 ML UDC (FOR ORAL USE ONLY) PO PRN (17:46)
--- NOTE | 2018-02-11 18:18 | PN ---
Mental Health Exam - Mental Status Exam Alert and Oriented to: Time, Place, Person Cognitive Function: Grossly Intact Patient Appearance: Well Groomed Mood: Depressed, Anxious, Hopeful Affect: Mood Congruent Patient Behavior: Dependent, Talkative, Cooperative Speech Pattern: Slurred (APPEARS DYSARTHRIC FROM YEARS OF INSULTS, FALLS, NEUOLOGICAL EITOLOGY?) Voice Loudness: Normal, Monoloudness Thought Process: Loose Associations Thought Disorder: Not Present Hallucinations: None Suicidal Ideation: Past, No Plan (CLIENT ENDORSED FEELING depressed, asked god to take her .) Homicidal Ideation: None (some preferred staff due to her fears/ predjudices. ) , No Plan Insight/Judgement: Fair (improving. ) Sleep: Fair Appetite: Fair (eating supper, but dry cracked lips. ) Muscle strength/Tone: Mild Hypotonicity Gait/Station: Deferred ("i am scared that i cannot walk, has so many falls".)
--- NOTE | 2018-02-11 18:44 | PN ---
Progress Note (short form) - Note Progress Note: Ms Ricks is a 67 yo female with alter mental status. Client admitted after fall " black out" when ingested unknown substance. She has past history of alcohol addiction, treated at [facility]. Currently in vest restrain due to recent combative/ loud episode. Client has alteration in her status and unable to adjust to new status of not ambulating, angry, frustrating affect but co- operative with underwriter mortgage loan. Alchol use history, nicknamed 'MAYNOR" on the street, claims to have lost 6 siblings to HIV from IVDU. she has attempted suicide at least 3 times in past by taking DOPE overdose intentional. She is proud of her son who she lives for, also in life review reminiscence. past psych admissions related to substance use, denies any hallucination, no delusion elicited. Depakote was stopped recently dy neuro, placed on keppra 500mg po bid, also on gapapentin, and zoloft 50 mg each day. plan reduce use of seroquel, that may be leading to daytime sedation. wean off vest restraint, fall risk protocol per [facility] policy and procedure. stop seroquel 100mg at night. Add seroquel 25mg po at night. Problem List - Problems (1) Drug-induced mood disorder Code(s): F19.94 - OTH PSYCHOACTIVE SUBSTANCE USE, UNSP W MOOD DISORDER (2) MDD (major depressive disorder) Code(s): F32.9 - MAJOR DEPRESSIVE DISORDER, SINGLE EPISODE, UNSPECIFIED Qualifiers: Major depression recurrence: recurrent Active/Remission status: in partial remission Qualified Code(s): F33.41 - Major depressive disorder, recurrent, in partial remission
[2018-02-11] MEDS ORDERED: PT OWN MED DRAWER 7, Y5N ONE (20:34)
[2018-02-11] MEDS: QUEtiapine FUMARATE 100 MG TABLET (FP) PO SCH ×2 (20:37→23:25)
[2018-02-11] MEDS: THIAMINE HCL 100 MG TABLET (FP) PO SCH (23:15)
[2018-02-12] MEDS: GABAPENTIN 300 MG CAPSULE (FP) PO SCH ×4 (05:43→22:11)
[2018-02-12] MEDS: PANTOPRAZOLE 40 MG TABLET (FP) PO SCH (09:12)
[2018-02-12] MEDS: SERTRALINE HCL 50 MG TABLET (FP) PO SCH (09:12)
[2018-02-12] MEDS: amLODIPine BESYLATE 10 MG TABLET (FP) PO SCH (09:12)
[2018-02-12] MEDS: levETIRAcetam 500 MG TABLET (FP) PO SCH ×3 (09:12→22:11)
[2018-02-12] MEDS: levETIRAcetam 250 MG TABLET (FP) PO SCH ×3 (09:12→22:11)
--- NOTE | 2018-02-12 10:57 | PN ---
Progress Note (short form) - Note Progress Note: PULMONARY REMAINS LETHARGIC VSS/AFEBRILE ANICTERIC DISTANT BREATH SOUNDS S1S2 BS+ NO EDEMA ABD US PENDING W/U THUS FAR UNREVEALING FOR ETIOLOGY OF CONTINUED LETHARGY NEURO EVAL/EEG NOTED AGREE WITH DECREASING SEROQUEL - Problems (1) Altered mental status Code(s): R41.82 - ALTERED MENTAL STATUS, UNSPECIFIED Qualifiers: Altered mental status type: somnolence Qualified Code(s): R40.0 - Somnolence (2) Toxic metabolic encephalopathy Code(s): G92 - TOXIC ENCEPHALOPATHY (3) Alcohol dependence with uncomplicated withdrawal Code(s): F10.230 - ALCOHOL DEPENDENCE WITH WITHDRAWAL, UNCOMPLICATED (4) Drug-induced mood disorder Code(s): F19.94 - OT PSYCHOACTIVE SUBSTANCE USE, UNSP W MOOD DISORDER (5) MDD (major depressive disorder) Code(s): F32.9 - MAJOR DEPRESSIVE DISORDER, SINGLE EPISODE, UNSPECIFIED Assessment/Plan HIGH RISK FOR ASPIRATION GIVEN CURRENT MENTAL STATUS O2/BRONCHODILATORS NEEDED MAY NEED ONE TO ONE OBSERVATION Gloria ROSS MD Problem List - Problems (1) Altered mental status Code(s): R41.82 - ALTERED MENTAL STATUS, UNSPECIFIED Qualifiers: Altered mental status type: somnolence Qualified Code(s): R40.0 - Somnolence (2) Toxic metabolic encephalopathy Code(s): G92 - TOXIC ENCEPHALOPATHY (3) Alcohol dependence with uncomplicated withdrawal Code(s): F10.230 - ALCOHOL DEPENDENCE WITH WITHDRAWAL, UNCOMPLICATED (4) Drug-induced mood disorder Code(s): F19.94 - OTH PSYCHOACTIVE SUBSTANCE USE, UNSP W MOOD DISORDER (5) MDD (major depressive disorder) Code(s): F32.9 - MAJOR DEPRESSIVE DISORDER, SINGLE EPISODE, UNSPECIFIED Qualifiers: Major depression recurrence: recurrent Active/Remission status: in partial remission Qualified Code(s): F33.41 - Major depressive disorder, recurrent, in partial remission
[2018-02-12] MEDS: diphenhydrAMINE HCL 25 MG CAPSULE (FP) PO PRN ×2 (13:38→20:48)
[2018-02-12] MEDS: HALOPERIDOL 1 MG TABLET (FP) PO PRN (13:39)
[2018-02-12] MEDS: ACETAMINOPHEN 650 MG/20.3 ML ORAL SOLUTION (CUPS) PO PRN (14:39)
[2018-02-12] MEDS ORDERED: PT OWN MED DRAWER 7, Y5N ONE (19:58)
[2018-02-12] MEDS ORDERED: LORazepam 1 MG TABLET PO PRN (20:14)
--- NOTE | 2018-02-12 20:18 | PN ---
Progress Note, Physician History of Present Illness: agitated - Current Medication List Current Medications: Active Medications Acetaminophen (Tylenol Oral Solution -) 650 mg PO Q6H PRN PRN Reason: PAIN LEVEL 1 - 3 Last Admin: 02/12/18 14:39 Dose: 650 mg Amlodipine Besylate (Norvasc -) 10 mg PO DAILY [facility] Last Admin: 02/12/18 09:12 Dose: 10 mg Diphenhydramine HCl (Benadryl -) 25 mg PO Q6H PRN PRN Reason: AGITATION Last Admin: 02/12/18 13:38 Dose: 25 mg Gabapentin (Neurontin -) 300 mg PO TID [facility] Last Admin: 02/12/18 14:03 Dose: 300 mg Haloperidol (Haldol -) 2 mg PO Q6H PRN PRN Reason: AGITATION Last Admin: 02/12/18 13:39 Dose: 2 mg Lactulose (Cephulac (Oral Use)) 20 gm PO TID PRN PRN Reason: CONSTIPATION Last Admin: 02/11/18 17:46 Dose: 20 gm Levetiracetam (Keppra -) 500 mg PO BID [facility] Last Admin: 02/12/18 09:12 Dose: 500 mg Levetiracetam (Keppra -) 250 mg PO BID [facility] Last Admin: 02/12/18 09:12 Dose: 250 mg Lorazepam (Ativan -) 1 mg PO BID PRN PRN Reason: ANXIETY Pantoprazole Sodium (Protonix -) 40 mg PO DAILY [facility] Last Admin: 02/12/18 09:12 Dose: 40 mg Quetiapine Fumarate (Seroquel -) 25 mg PO [facility] Sertraline HCl (Zoloft -) 50 mg PO DAILY [facility] Last Admin: 02/12/18 09:12 Dose: 50 mg Thiamine HCl (Vitamin B1 -) 100 mg PO [facility] Last Admin: 02/11/18 23:15 Dose: Not Given - Objective Vital Signs: Vital Signs Temperature 98.4 F 02/12/18 13:41 Pulse Rate 87 02/12/18 13:41 Respiratory Rate 20 02/12/18 13:41 Blood Pressure 108/62 02/12/18 13:41 O2 Sat by Pulse Oximetry (%) 96 02/12/18 14:00 Neck: Yes: Supple Cardiovascular: Yes: Regular Rate and Rhythm Respiratory: Yes: CTA Bilaterally Extremities: Yes: WNL Neurological: Yes: Alert, Oriented Labs: CBC, BMP 02/10/18 06:10 02/10/18 06:10 Problem List - Problems (1) Anxiety disorder Assessment/Plan: on meds prn ativan continue home meds psych eval noted Code(s): F41.9 - ANXIETY DISORDER, UNSPECIFIED Qualifiers: (2) Hypertension Assessment/Plan: on meds stable Code(s): I10 - ESSENTIAL (PRIMARY) HYPERTENSION Qualifiers: (3) Alcohol dependence Assessment/Plan: monitor detox consult Code(s): F10.20 - ALCOHOL DEPENDENCE, UNCOMPLICATED Qualifiers: Substance use status: uncomplicated Qualified Code(s): F10.20 - Alcohol dependence, uncomplicated (4) GERD (gastroesophageal reflux disease) Assessment/Plan: on protonix Code(s): K21.9 - GASTRO-ESOPHAGEAL REFLUX DISEASE WITHOUT ESOPHAGITIS Qualifiers: (5) Altered mental status Assessment/Plan: much improved agitated sometimes Code(s): R41.82 - ALTERED MENTAL STATUS, UNSPECIFIED Qualifiers: Altered mental status type: somnolence Qualified Code(s): R40.0 - Somnolence
--- NOTE | 2018-02-12 20:44 | PN ---
Progress Note, Physician History of Present Illness: Continuous to be lethargic, combative. Liver chemistry normal. US of the liver reviewed. - Current Medication List Current Medications: Active Medications Acetaminophen (Tylenol Oral Solution -) 650 mg PO Q6H PRN PRN Reason: PAIN LEVEL 1 - 3 Last Admin: 02/12/18 14:39 Dose: 650 mg Amlodipine Besylate (Norvasc -) 10 mg PO DAILY [facility] Last Admin: 02/12/18 09:12 Dose: 10 mg Diphenhydramine HCl (Benadryl -) 25 mg PO Q6H PRN PRN Reason: AGITATION Last Admin: 02/12/18 13:38 Dose: 25 mg Gabapentin (Neurontin -) 300 mg PO TID [facility] Last Admin: 02/12/18 14:03 Dose: 300 mg Haloperidol (Haldol -) 2 mg PO Q6H PRN PRN Reason: AGITATION Last Admin: 02/12/18 13:39 Dose: 2 mg Lactulose (Cephulac (Oral Use)) 20 gm PO TID PRN PRN Reason: CONSTIPATION Last Admin: 02/11/18 17:46 Dose: 20 gm Levetiracetam (Keppra -) 500 mg PO BID [facility] Last Admin: 02/12/18 09:12 Dose: 500 mg Levetiracetam (Keppra -) 250 mg PO BID [facility] Last Admin: 02/12/18 09:12 Dose: 250 mg Lorazepam (Ativan -) 1 mg PO Q12H PRN PRN Reason: ANXIETY Pantoprazole Sodium (Protonix -) 40 mg PO DAILY [facility] Last Admin: 02/12/18 09:12 Dose: 40 mg Quetiapine Fumarate (Seroquel -) 25 mg PO HS [facility] Sertraline HCl (Zoloft -) 50 mg PO DAILY [facility] Last Admin: 02/12/18 09:12 Dose: 50 mg Thiamine HCl (Vitamin B1 -) 100 mg PO HS [facility] Last Admin: 02/11/18 23:15 Dose: Not Given - Objective Vital Signs: Vital Signs Temperature 98.4 F 02/12/18 13:41 Pulse Rate 87 02/12/18 13:41 Respiratory Rate 20 02/12/18 13:41 Blood Pressure 108/62 02/12/18 13:41 O2 Sat by Pulse Oximetry (%) 96 02/12/18 14:00 Gastrointestinal: Yes: Soft. No: Distention, Tenderness, Vomiting Labs: CBC, BMP 02/10/18 06:10 02/10/18 06:10 Laboratory Last Values WBC 4.9 K/mm3 (4.0-10.0) 02/10/18 06:10 RBC 3.86 M/mm3 (3.60-5.2) 02/10/18 06:10 Hgb 11.2 GM/dL (10.7-15.3) 02/10/18 06:10 Hct 33.3 % (32.4-45.2) 02/10/18 06:10 MCV 86.3 fl (80-96) 02/10/18 06:10 MCH 29.0 pg (25.7-33.7) 02/10/18 06:10 MCHC 33.6 g/dl (32.0-36.0) 02/10/18 06:10 RDW 15.7 % (11.6-15.6) H 02/10/18 06:10 Plt Count 168 K/MM3 (134-434) 02/10/18 06:10 MPV 8.6 fl (7.5-11.1) 02/10/18 06:10 Absolute Neuts (auto) 2.9 # 02/10/18 06:10 Neutrophils % 59.3 % (42.8-82.8) 02/10/18 06:10 Lymphocytes % 29.4 % (8-40) D 02/10/18 06:10 Monocytes % 8.2 % (3.8-10.2) 02/10/18 06:10 Eosinophils % 2.6 % (0-4.5) 02/10/18 06:10 Basophils % 0.5 % (0-2.0) 02/10/18 06:10 Nucleated RBC % 0 % (0-0) 02/10/18 06:10 Sodium 145 mmol/L (136-145) 02/10/18 06:10 Potassium 3.8 mmol/L (3.5-5.1) 02/10/18 06:10 Chloride 109 mmol/L (98-107) H 02/10/18 06:10 Carbon Dioxide 25 mmol/L (21-32) 02/10/18 06:10 Anion Gap 11 (8-16) 02/10/18 06:10 BUN 26 mg/dL (7-18) H 02/10/18 06:10 Creatinine 0.5 mg/dL (0.55-1.02) L 02/10/18 06:10 Creat Clearance w eGFR > 60 (>60) 02/10/18 06:10 Random Glucose 91 mg/dL (74-106) 02/10/18 06:10 Calcium 9.0 mg/dL (8.5-10.1) 02/10/18 06:10 Total Bilirubin 0.5 mg/dL (0.2-1.0) 02/10/18 06:10 AST 16 U/L (15-37) 02/10/18 06:10 ALT 18 U/L (12-78) 02/10/18 06:10 Alkaline Phosphatase 68 U/L (45-117) 02/10/18 06:10 Ammonia 32.6 umol/L (11-32) H 02/10/18 06:10 Creatine Kinase 245 IU/L (26-192) H 02/07/18 21:00 Creatine Kinase Index 0.8 % (0.0-5.0) 02/07/18 21:00 CK-MB (CK-2) 2.06 ng/mL (0.5-3.6) 02/07/18 21:00 Troponin I < 0.02 ng/ml (0.00-0.05) 02/07/18 21:00 Total Protein 7.5 g/dl (6.4-8.2) 02/10/18 06:10 Albumin 3.0 g/dl (3.4-5.0) L 02/10/18 06:10 Vitamin B12 1467 pg/ml (180-914) H 02/09/18 06:10 Serum Folate 29 ng/ml (3.1-17.5) H 02/09/18 06:10 TSH 0.28 uIU/ml (0.358-3.74) L 02/09/18 06:10 Free T3 1.9 pg/ml (2.0-4.4) L 02/09/18 06:10 Urine Color Ltyellow 02/06/18 13:29 Urine Appearance Clear 02/06/18 13:29 Urine pH 8.0 (5.0-8.0) 02/06/18 13:29 Ur Specific [place] 1.010 (1.001-1.035) 02/06/18 13:29 Urine Protein Negative (NEGATIVE) 02/06/18 13:29 Urine Glucose (UA) Negative (NEGATIVE) 02/06/18 13:29 Urine Ketones Negative (NEGATIVE) 02/06/18 13:29 Urine Blood Negative (NEGATIVE) 02/06/18 13:29 Urine Nitrite Negative (NEGATIVE) 02/06/18 13:29 Urine Bilirubin Negative (<2.0 mg/dL) 02/06/18 13:29 Urine Urobilinogen Negative mg/dL (0.2-1.0) 02/06/18 13:29 Ur Leukocyte Esterase Negative (NEGATIVE) 02/06/18 13:29 Salicylates <1.70 mg/dL 02/06/18 12:45 Opiates Screen Negative ng/ml (KAOLHO=350) 02/06/18 13:29 Methadone Screen Negative ng/ml (DFYQHY=118) 02/06/18 13:29 Acetaminophen <2 ug/mL 02/06/18 12:45 Barbiturate Screen Negative ng/ml (KGNJAW=742) 02/06/18 13:29 Valproic Acid 75 ug/ml (50-100) 02/06/18 12:56 Phencyclidine Screen Negative ng/ml (CUTOFF=25) 02/06/18 13:29 Ur Amphetamines Screen Negative ng/ml (LBNXHE=900) 02/06/18 13:29 MDMA (Ecstasy) Screen Negative ng/ml (IFYHTG=441) 02/06/18 13:29 Benzodiazepines Screen Positive ng/ml (BMRRON=886) 02/06/18 13:29 Cocaine Screen Negative ng/ml (PJZZMT=530) 02/06/18 13:29 U Marijuana (THC) Screen Negative ng/ml (CUTOFF=50) 02/06/18 13:29 Alcohol, Quantitative < 5.0 mg/dL (0.0-5.0) 02/06/18 12:45 Problem List - Problems (1) Altered mental status Code(s): R41.82 - ALTERED MENTAL STATUS, UNSPECIFIED Qualifiers: Altered mental status type: somnolence Qualified Code(s): R40.0 - Somnolence (2) Alcohol dependence with uncomplicated withdrawal Code(s): F10.230 - ALCOHOL DEPENDENCE WITH WITHDRAWAL, UNCOMPLICATED (3) Hepatitis C Code(s): B19.20 - UNSPECIFIED VIRAL HEPATITIS C WITHOUT HEPATIC COMA Qualifiers: Viral hepatitis chronicity: unspecified Hepatic coma status: without hepatic coma Qualified Code(s): B19.20 - Unspecified viral hepatitis C without hepatic coma Assessment/Plan A 67F with hx of substance abuse and HCV however w/o overt stigmata of liver disease per exam and labs. The pt's current state is unlikely to be due to hepatic encephalopathy. Suspect drugs and or MEDICINE AIDE innate etiology.
[2018-02-12] MEDS: QUEtiapine FUMARATE 25 MG TABLET (FP) PO SCH ×2 (20:53→22:11)
[2018-02-12] MEDS: THIAMINE HCL 100 MG TABLET (FP) PO SCH ×2 (20:53→22:12)
[2018-02-12] MEDS: RIFAXIMIN 550 MG TABLET (UD) PO SCH (22:12)
[2018-02-13] MEDS: HALOPERIDOL 1 MG TABLET (FP) PO PRN ×2 (01:56→16:04)
[2018-02-13] MEDS: diphenhydrAMINE HCL 25 MG CAPSULE (FP) PO PRN (04:31)
[2018-02-13] MEDS: GABAPENTIN 300 MG CAPSULE (FP) PO SCH ×2 (05:28→13:23)
[2018-02-13] MEDS ORDERED: HALOPERIDOL LACTATE 5 MG/ML IM ONE (05:30)
[2018-02-13] MEDS ORDERED: PT OWN MED DRAWER 7, Y5N ONE ×2 (07:22→15:25)
[2018-02-13] MEDS: levETIRAcetam 500 MG TABLET (FP) PO SCH (09:57)
[2018-02-13] MEDS: levETIRAcetam 250 MG TABLET (FP) PO SCH (09:58)
[2018-02-13] MEDS: amLODIPine BESYLATE 10 MG TABLET (FP) PO SCH (09:58)
[2018-02-13] MEDS: SERTRALINE HCL 50 MG TABLET (FP) PO SCH (09:58)
[2018-02-13] MEDS: PANTOPRAZOLE 40 MG TABLET (FP) PO SCH (09:58)
[2018-02-13] MEDS: RIFAXIMIN 550 MG TABLET (UD) PO SCH (09:58)
--- NOTE | 2018-02-13 13:45 | PN ---
Progress Note, Physician Chief Complaint: pulmonary awake,less confused,-resp distress - Current Medication List Current Medications: Active Medications Acetaminophen (Tylenol Oral Solution -) 650 mg PO Q6H PRN PRN Reason: PAIN LEVEL 1 - 3 Last Admin: 02/12/18 14:39 Dose: 650 mg Amlodipine Besylate (Norvasc -) 10 mg PO DAILY [facility] Last Admin: 02/13/18 09:58 Dose: 10 mg Diphenhydramine HCl (Benadryl -) 25 mg PO Q6H PRN PRN Reason: AGITATION Last Admin: 02/13/18 04:31 Dose: 25 mg Gabapentin (Neurontin -) 300 mg PO TID [facility] Last Admin: 02/13/18 13:23 Dose: 300 mg Haloperidol (Haldol -) 2 mg PO Q6H PRN PRN Reason: AGITATION Last Admin: 02/13/18 01:56 Dose: 2 mg Lactulose (Cephulac (Oral Use)) 20 gm PO TID PRN PRN Reason: CONSTIPATION Last Admin: 02/11/18 17:46 Dose: 20 gm Levetiracetam (Keppra -) 500 mg PO BID [facility] Last Admin: 02/13/18 09:57 Dose: 500 mg Levetiracetam (Keppra -) 250 mg PO BID [facility] Last Admin: 02/13/18 09:58 Dose: 250 mg Lorazepam (Ativan -) 1 mg PO Q12H PRN PRN Reason: ANXIETY Last Admin: 02/12/18 20:47 Dose: 1 mg Pantoprazole Sodium (Protonix -) 40 mg PO DAILY [facility] Last Admin: 02/13/18 09:58 Dose: 40 mg Quetiapine Fumarate (Seroquel -) 25 mg PO [facility] Last Admin: 02/12/18 22:11 Dose: Not Given Rifaximin (Xifaxan -) 550 mg PO BID [facility] Last Admin: 02/13/18 09:58 Dose: 550 mg Sertraline HCl (Zoloft -) 50 mg PO DAILY [facility] Last Admin: 02/13/18 09:58 Dose: 50 mg Thiamine HCl (Vitamin B1 -) 100 mg PO [facility] Last Admin: 02/12/18 22:12 Dose: Not Given - Objective Vital Signs: Vital Signs Temperature 97.6 F 06/18/18 05:44 Pulse Rate 76 02/13/18 10:00 Respiratory Rate 20 02/13/18 10:00 Blood Pressure 120/70 02/13/18 10:00 O2 Sat by Pulse Oximetry (%) 95 02/13/18 09:00 Constitutional: Yes: Well Nourished, Calm Eyes: Yes: WNL HENT: Yes: WNL Neck: Yes: WNL Cardiovascular: Yes: Regular Rate and Rhythm, S1, S2 Respiratory: Yes: Rhonchi (few rhonchi) Gastrointestinal: Yes: Normal Bowel Sounds, Soft Extremities: Yes: WNL Edema: No Labs: CBC, BMP 02/10/18 06:10 Assessment/Plan - Problems (1) Altered mental status Code(s): R41.82 - ALTERED MENTAL STATUS, UNSPECIFIED Qualifiers: Altered mental status type: somnolence Qualified Code(s): R40.0 - Somnolence improving (2) Toxic metabolic encephalopathy Code(s): G92 - TOXIC ENCEPHALOPATHY hepatic encephalopathy (3) Alcohol dependence with uncomplicated withdrawal Code(s): F10.230 - ALCOHOL DEPENDENCE WITH WITHDRAWAL, UNCOMPLICATED (4) Drug-induced mood disorder Code(s): F19.94 - OTH PSYCHOACTIVE SUBSTANCE USE, UNSP W MOOD DISORDER (5) MDD (major depressive disorder) Code(s): F32.9 - MAJOR DEPRESSIVE DISORDER, SINGLE EPISODE, UNSPECIFIED Assessment/Plan O2 BRONCHODILATORS NEEDED lactulose MONITOR AMMONIA LEVEL THIAMINE FOLIC ACID DR CARTER
--- NOTE | 2018-02-13 14:36 | PN ---
Progress Note, Physician History of Present Illness: Awake, Alert and oriented. Reports HCV, but no history of advanced liver disease. - Current Medication List Current Medications: Active Medications Acetaminophen (Tylenol Oral Solution -) 650 mg PO Q6H PRN PRN Reason: PAIN LEVEL 1 - 3 Last Admin: 02/12/18 14:39 Dose: 650 mg Amlodipine Besylate (Norvasc -) 10 mg PO DAILY [facility] Last Admin: 02/13/18 09:58 Dose: 10 mg Diphenhydramine HCl (Benadryl -) 25 mg PO Q6H PRN PRN Reason: AGITATION Last Admin: 02/13/18 04:31 Dose: 25 mg Gabapentin (Neurontin -) 300 mg PO TID [facility] Last Admin: 02/13/18 13:23 Dose: 300 mg Haloperidol (Haldol -) 2 mg PO Q6H PRN PRN Reason: AGITATION Last Admin: 02/13/18 01:56 Dose: 2 mg Lactulose (Cephulac (Oral Use)) 20 gm PO TID PRN PRN Reason: CONSTIPATION Last Admin: 02/11/18 17:46 Dose: 20 gm Levetiracetam (Keppra -) 500 mg PO BID [facility] Last Admin: 02/13/18 09:57 Dose: 500 mg Levetiracetam (Keppra -) 250 mg PO BID [facility] Last Admin: 02/13/18 09:58 Dose: 250 mg Lorazepam (Ativan -) 1 mg PO Q12H PRN PRN Reason: ANXIETY Last Admin: 02/12/18 20:47 Dose: 1 mg Pantoprazole Sodium (Protonix -) 40 mg PO DAILY [facility] Last Admin: 02/13/18 09:58 Dose: 40 mg Quetiapine Fumarate (Seroquel -) 25 mg PO HS [facility] Last Admin: 02/12/18 22:11 Dose: Not Given Rifaximin (Xifaxan -) 550 mg PO BID [facility] Last Admin: 02/13/18 09:58 Dose: 550 mg Sertraline HCl (Zoloft -) 50 mg PO DAILY [facility] Last Admin: 02/13/18 09:58 Dose: 50 mg Thiamine HCl (Vitamin B1 -) 100 mg PO HS [facility] Last Admin: 02/12/18 22:12 Dose: Not Given - Objective Vital Signs: Vital Signs Temperature 97.6 F 02/13/18 05:44 Pulse Rate 76 02/13/18 10:00 Respiratory Rate 20 02/13/18 10:00 Blood Pressure 120/70 02/13/18 10:00 O2 Sat by Pulse Oximetry (%) 95 02/13/18 09:00 Constitutional: Yes: No Distress, Calm Gastrointestinal: Yes: Normal Bowel Sounds, Soft. No: Tenderness Labs: CBC, BMP 02/10/18 06:10 02/10/18 06:10 Problem List - Problems (1) Altered mental status Code(s): R41.82 - ALTERED MENTAL STATUS, UNSPECIFIED Qualifiers: Altered mental status type: somnolence Qualified Code(s): R40.0 - Somnolence (2) Alcohol dependence with uncomplicated withdrawal Code(s): F10.230 - ALCOHOL DEPENDENCE WITH WITHDRAWAL, UNCOMPLICATED (3) Hepatitis C Code(s): B19.20 - UNSPECIFIED VIRAL HEPATITIS C WITHOUT HEPATIC COMA Qualifiers: Viral hepatitis chronicity: unspecified Hepatic coma status: without hepatic coma Qualified Code(s): B19.20 - Unspecified viral hepatitis C without hepatic coma Assessment/Plan No GI symptoms. Continue current care
[2018-02-13 15:06] VITALS: BP 117/65; PULSE 72; TEMP 97.7
[2018-02-13] MEDS ORDERED: guaiFENesin/D-METHORPHAN HB 10 ML UNIT-DOSE CUPS PO PRN (16:13)
--- NOTE | 2018-02-13 16:13 | PN ---
Progress Note, Physician History of Present Illness: anxious - Current Medication List Current Medications: Active Medications Acetaminophen (Tylenol Oral Solution -) 650 mg PO Q6H PRN PRN Reason: PAIN LEVEL 1 - 3 Last Admin: 02/12/18 14:39 Dose: 650 mg Amlodipine Besylate (Norvasc -) 10 mg PO DAILY [facility] Last Admin: 02/13/18 09:58 Dose: 10 mg Diphenhydramine HCl (Benadryl -) 25 mg PO Q6H PRN PRN Reason: AGITATION Last Admin: 02/13/18 04:31 Dose: 25 mg Gabapentin (Neurontin -) 300 mg PO TID [facility] Last Admin: 02/13/18 13:23 Dose: 300 mg Haloperidol (Haldol -) 2 mg PO Q6H PRN PRN Reason: AGITATION Last Admin: 02/13/18 16:04 Dose: 2 mg Lactulose (Cephulac (Oral Use)) 20 gm PO TID PRN PRN Reason: CONSTIPATION Last Admin: 02/11/18 17:46 Dose: 20 gm Levetiracetam (Keppra -) 500 mg PO BID [facility] Last Admin: 02/13/18 09:57 Dose: 500 mg Levetiracetam (Keppra -) 250 mg PO BID [facility] Last Admin: 02/13/18 09:58 Dose: 250 mg Lorazepam (Ativan -) 1 mg PO Q12H PRN PRN Reason: ANXIETY Last Admin: 02/12/18 20:47 Dose: 1 mg Pantoprazole Sodium (Protonix -) 40 mg PO DAILY [facility] Last Admin: 02/13/18 09:58 Dose: 40 mg Quetiapine Fumarate (Seroquel -) 25 mg PO [facility] Last Admin: 02/12/18 22:11 Dose: Not Given Rifaximin (Xifaxan -) 550 mg PO BID [facility] Last Admin: 02/13/18 09:58 Dose: 550 mg Sertraline HCl (Zoloft -) 50 mg PO DAILY [facility] Last Admin: 02/13/18 09:58 Dose: 50 mg Thiamine HCl (Vitamin B1 -) 100 mg PO [facility] Last Admin: 02/12/18 22:12 Dose: Not Given - Objective Vital Signs: Vital Signs Temperature 97.7 F 02/13/18 15:02 Pulse Rate 72 02/13/18 15:02 Respiratory Rate 20 02/13/18 15:02 Blood Pressure 117/65 02/13/18 15:02 O2 Sat by Pulse Oximetry (%) 95 02/13/18 09:00 Constitutional: Yes: Anxious HENT: Yes: Atraumatic Neck: Yes: Supple Cardiovascular: Yes: Regular Rate and Rhythm Respiratory: Yes: CTA Bilaterally Gastrointestinal: Yes: Normal Bowel Sounds Extremities: Yes: WNL Neurological: Yes: Alert, Oriented Labs: CBC, BMP 02/10/18 06:10 02/10/18 06:10 Problem List - Problems (1) Anxiety disorder Assessment/Plan: on meds prn ativan continue home meds psych eval noted Code(s): F41.9 - ANXIETY DISORDER, UNSPECIFIED Qualifiers: (2) Hypertension Assessment/Plan: on meds stable Code(s): I10 - ESSENTIAL (PRIMARY) HYPERTENSION Qualifiers: (3) Alcohol dependence Code(s): F10.20 - ALCOHOL DEPENDENCE, UNCOMPLICATED Qualifiers: Substance use status: uncomplicated Qualified Code(s): F10.20 - Alcohol dependence, uncomplicated (4) GERD (gastroesophageal reflux disease) Assessment/Plan: on protonix Code(s): K21.9 - GASTRO-ESOPHAGEAL REFLUX DISEASE WITHOUT ESOPHAGITIS Qualifiers: (5) Altered mental status Assessment/Plan: much improved agitated sometimes Code(s): R41.82 - ALTERED MENTAL STATUS, UNSPECIFIED Qualifiers: Altered mental status type: somnolence Qualified Code(s): R40.0 - Somnolence
[2018-02-13] MEDS ORDERED: LORazepam 2 MG/ML SDV VIAL IM ONE (16:45)
--- NOTE | 2018-02-14 18:30 | DS ---
Physical Examination Vital Signs: Vital Signs Temperature 97.7 F 02/13/18 15:02 Pulse Rate 72 02/13/18 15:02 Respiratory Rate 20 02/13/18 15:02 Blood Pressure 117/65 02/13/18 15:02 O2 Sat by Pulse Oximetry (%) 95 02/13/18 09:00 Labs: CBC, BMP 02/10/18 06:10 02/10/18 06:10 Discharge Summary Reason For Visit: Altered Mental Status Condition: Stable - Instructions Disposition: AGAINST MEDICAL ADVICE - Home Medications Comprehensive Discharge Medication List: Ambulatory Orders Amlodipine Besylate [Norvasc -] 10 mg PO DAILY 10/06/17 Divalproex [Depakote -] 500 mg PO Q12H 02/02/18 Gabapentin [Neurontin -] 300 mg PO Q8H 02/02/18 Pantoprazole Sodium [Protonix -] 40 mg PO DAILY 02/02/18 Quetiapine Fumarate [Seroquel] 100 mg PO HS #30 tablet 02/02/18 Sertraline HCl [Zoloft -] 50 mg PO DAILY 02/03/18 Thiamine HCl [Vitamin B1 -] 100 mg PO HS tablet 02/04/18 [facility]
== END 2018-02-13 18:00 | disposition left against medical advice (07) | DRG 894 ==
LOC: JER 12:04 → JERBED 17:17 → J6S 20:34 → OBSVTOIN 02-10 17:29
PROVIDERS: ADMIT Internal Medicine; ATTEND Internal Medicine
DX: F19.94 Other psychoactive substance use, unspecified with psychoactive substance-induced mood disorder (principal); G92 Toxic encephalopathy; R41.82 Altered mental status, unspecified; F41.8 Other specified anxiety disorders; I10 Essential (primary) hypertension; K21.9 Gastro-esophageal reflux disease without esophagitis; F10.230 Alcohol dependence with withdrawal, uncomplicated
CPT/HCPCS: 36415; 70450-TC; 71045-TC-FY; 76705-TC; 80053; 80164; 80307; 81003; 82140; 82550; 82553; 82607; 82746; 84443; 84481; 84484; 85025; 87086; 87186; 93005; 93010; 95816; 99285-25; G0378